=== PATIENT | male | born 1975 | race Caucasian/White ===

== ENCOUNTER 2019-05-06 07:56 | Outpatient (CLI) | payer BC, SELFPAY ==
[2019-05-06 08:19] LABS: Hematocrit 47.4 % (42.0-52.0); Hemoglobin 16.1 g/dL (14.0-18.0); Mean Corpuscular Hemoglobin 30.8 pg (26-34); Mean Corpuscular Volume 90.8 fl (80-100); Mean Platelet Volume 10.2 fl (7.4-10.4); Platelet Count Result 237 k/mm3 (150-375); Red Blood Count 5.22 M/mm3 (4.6-6.20); Red Cell Distribution Width 12.9 % (11.5-14.5); White Blood Count 8.4 K/mm3 (4.5-10.0)
[2019-05-06 08:30] LABS: Alanine Aminotransferase 29 U/L (4-50); Albumin Level 4.4 g/dL (3.5-5.1); Alkaline Phosphatase 87 U/L (38-126); Aspartate Amino Transferase 24 U/L (17-59); Bilirubin,Total 0.3 mg/dL (0.2-1.3); Blood Urea Nitrogen 16 mg/dL (9-20); Calcium 9.3 mg/dL (8.4-10.2); Carbon Dioxide 25 mmol/L (22-30); Chloride 103 mmol/L (98-107); Cholesterol 162 mg/dL (0-200); Estimated Glomerular Filt Rate > 60; Glucose 118 mg/dL (75-110); HDL Direct 37 mg/dL; Potassium 4.2 mmol/L (3.4-5.0); Sodium 140 mmol/L (137-145); Triglycerides 80 mg/dL (<150)
[2019-05-06 08:41] LABS: LDL Cholesterol Direct 107 mg/dL
== END 2019-05-06 07:57 | disposition home or self-care (01) ==
PROVIDERS: PCP Internal Medicine; Visit Provider Nurse Practitioner
DX: Z13.228 Encounter for screening for other metabolic disorders (principal); Z13.220 Encounter for screening for lipoid disorders
CPT/HCPCS: 36415; 80053; 80061; 85027

== ENCOUNTER 2019-05-26 08:41 | Outpatient (CLI) | payer BC, SELFPAY ==
[2019-05-26 09:37] LABS: Hemoglobin A1C 5.6 % (<5.7)
== END 2019-05-26 08:42 | disposition home or self-care (01) ==
PROVIDERS: PCP Internal Medicine; Visit Provider Nurse Practitioner
DX: R73.9 Hyperglycemia, unspecified (principal)
CPT/HCPCS: 36415; 83036

== ENCOUNTER 2020-02-25 15:22 | Emergency (ER) | payer BC, SELFPAY ==
--- NOTE | ~2020-02-25 | CT_ITS ---
EXAMINATION: CT abdomen pelvis wo con DATE: 02/25/2020 16:21 INDICATION: Right flank pain. Kidney stone. TECHNIQUE: Computed tomography (CT) of the abdomen and pelvis was performed without intravenous contr ast. Automated exposure control and iterative reconstruction technique were employed. The dose-length product was 892.05 mGy-cm. COMPARISON: CT abdomen and pelvis 11/25/2015 FINDINGS: The visualized portions of the lung bases are clear without pneumonia or pleural effusion. The heart size is normal. No pericardial effusion. The liver, spleen, pancreas, and adrenal glands ar e normal. There are changes of cholecystectomy. There is asymmetric edema around right kidney. There is mild right hydronephrosis. There is a 6 mm stone in proximal right ureter. There is a 4 mm stone i n left kidney. There are no dilated loops of bowel. The appendix is normal. There are no pathological ly enlarged lymph nodes. There is no free intraperitoneal fluid. There is mild thoracolumbar spondylo sis. There is mild chronic anterior wedging of multiple vertebral bodies. IMPRESSION: 1. 6 mm stone in proximal right ureter with mild right hydronephrosis. 2. 4 mm nonobstructing left kidney stone. Reviewed, dictated and finalized at location A. UATE ASSISTANT
--- NOTE | ~2020-02-25 | XR_ITS ---
EXAMINATION: XR abdomen/kub 1V DATE: 02/25/2020 17:28 INDICATION: Flank pain. Kidney stone. TECHNIQUE: A supine view of the abdomen on 2 radiographs was obtained. COMPARISON: CT abdomen and pelvis 02/25/2020 FINDINGS: There is a 6 mm stone in proximal right ureter at the level of L4. There are no dilated loo ps of bowel. Surgical clips in the right upper quadrant are likely from cholecystectomy. IMPRESSION: 1. 6 mm stone in proximal right ureter. Reviewed, dictated and finalized at location A. TER
[2020-02-25 15:24] VITALS: BP 146/89; PULSE 80; RESP 20; TEMP 36.1; O2SAT 99
[2020-02-25 16:01] LABS: Basophils Absolute Auto 0.1 K/mm3 (0.0-0.1); Basophils Percent Auto 0.5 % (0.2-1.2); Eosinophils Absolute Auto 0.2 K/mm3 (0-0.3); Eosinophils Percent Auto 1.2 % (0-4.4); Hematocrit 46.8 % (42.0-52.0); Hemoglobin 16.6 g/dL (14.0-18.0); Immature Granulocyte Absolute 0.05 K/mm3 (0.00-0.031); Immature Granulocyte Percent A 0.3 % (0-0.5); Lymphocytes Absolute Auto 2.19 K/mm3 (0.9-3.2); Lymphocytes Percent Auto 14.9 % (18.3-44.2); Mean Corpuscular HGB Conc 35.5 g/dl (32-36); Mean Corpuscular Hemoglobin 31.1 pg (26-34); Mean Corpuscular Volume 87.6 fl (80-100); Mean Platelet Volume 10.2 fl (7.4-10.4); Monocytes Absolute Auto 1.2 K/mm3 (0.1-0.6); Monocytes Percent Auto 7.9 % (2.6-8.5); Neutrophils Percent Auto 75.2 % (45.5-73.1); Platelet Count Result 226 k/mm3 (150-375); Red Blood Count 5.34 M/mm3 (4.6-6.20); Red Cell Distribution Width 12.3 % (11.5-14.5); White Blood Count 14.7 K/mm3 (4.5-10.0)
[2020-02-25 16:05] LABS: Add Urine Microscopic? YES; Appearance Urine Clear (Clear); Bilirubin Urine Negative (Negative); Blood Urine 2+ (Negative); Color Urine Yellow (Yellow); Glucose Urine UA Negative (Negative); Ketones Urine 1+ mg/dL (Negative); Leukocyte Esterase Ur Negative LEU/UL (Negative); Mucus Urine Rare /lpf; Nitrate Urine Negative (Negative); Protein Urine 1+ mg/dL (Negative); RBC Urine 21-50 /hpf (0-2); Squamous Epithelial Cell Urine Occasional /hpf (Few); Urobilinogen Urine Negative mg/dL (<2.0); WBC Urine 0-3 /hpf
[2020-02-25 16:12] LABS: Anion Gap 8 mmol/L (8-16); Blood Urea Nitrogen 15 mg/dL (9-20); Calcium 9.4 mg/dL (8.4-10.2); Carbon Dioxide 28 mmol/L (22-30); Chloride 101 mmol/L (98-107); Estimated CRCL calculation 107 ml/min; Estimated Glomerular Filt Rate > 60; Glucose 123 mg/dL (75-110); Potassium 3.7 mmol/L (3.4-5.0); Sodium 137 mmol/L (137-145)
--- NOTE | 2020-02-25 16:38 | ED.BACK ---
HPI - Back Pain/Injury General Chief Complaint: Back Pain/Injury Stated Complaint: right flank pain Time Seen by Provider: 02/25/20 15:58 Source: patient Mode of arrival: ambulatory Limitations: no limitations History of Present Illness HPI Narrative: This is a 44-year-old male that presents to the emergency department for right-sided flank pain since this morning. Reports the pain has been constant and sharp in nature. Reports history of kidney stones. Denies fever, nausea, vomiting, dysuria, hematuria. Related Data Allergies Allergy/AdvReac Type Severity Reaction Status Date / Time No Known Allergies Allergy Unknown Unverified 02/25/20 15:26 Review of Systems Review of Systems: Narrative: CONSTITUTIONAL: Denies fever GASTROINTESTINAL: Reports flank pain. Denies abdominal pain, nausea, vomiting GENITOURINARY: Denies dysuria or hematuria. All systems reviewed & are unremarkable except as noted in HPI and below PMFSH Past Medical History Medical History Cellulitis of lower leg Left Cholecystectomy planned 2017 Mild acid reflux Recurrent tinea pedis Smoker Family History Family History (Updated 08/17/18 @ 10:26 by DOCTOR UNKNOWN) Father Family history of thyroid disease Diabetes mellitus Hypertension Family history of hypothyroidism Mother Hypertension Other Cerebrovascular accident Family history of arthritis Family history of kidney disease Social History Social History (Updated 05/11/19 @ 15:37 by Jessi Mayorga, [facility]) Smoking packs per day: 1 Smoking cigarettes per day: 20.0 Smoking status: Heavy tobacco smoker Tobacco type: cigarettes Alcohol intake: current Gender identity (if verbalized by the patient): Male Exam Narrative: Exam Narrative: GENERAL: Well-appearing, well-nourished, and in no acute distress. HEAD: Normocephalic, atraumatic. EYES: EOMI. CHEST: Clear to auscultation. No respiratory distress. No wheezes rales or rhonchi HEART: Regular rate and rhythm. No murmur heard. Normal peripheral pulses. ABDOMEN: Soft, nontender, nondistended, normal active bowel sounds. No CVA tenderness EXTREMITIES: Normal range of motion. No edema. SKIN: Warm, dry, no rash. NEURO: No focal deficits. Alert and oriented x3. PSYCH: Normal mood and affect Course Consultations Consultation #1: Spoke with urology about patient and work-up will follow-up in clinic. Date: 02/25/20 Time: 18:43 Vital Signs Vital signs: Vital Signs Temperature 97 F L 02/25/20 15:24 Pulse Rate 80 02/25/20 15:24 Respiratory Rate 20 02/25/20 15:24 Blood Pressure 146/89 H 02/25/20 15:24 Pulse Oximetry 99 02/25/20 15:24 Temperature 97 F L 02/25/20 15:24 Pulse Rate 80 02/25/20 15:24 Respiratory Rate 20 02/25/20 15:24 Blood Pressure 146/89 H 02/25/20 15:24 Pulse Oximetry 99 02/25/20 15:24 MDM - Back Pain/Injury MDM Narrative Medical decision making narrative: Patient presents the emergency department for right flank pain since this morning. He is afebrile and nontoxic-appearing. CBC with leukocytosis to 14.7. Metabolic panel without concerning findings. UA is without evidence of infection. Does show red blood cells. CT scan of the abdomen and pelvis shows a 6 mm stone in the proximal right ureter with mild right hydronephrosis. KUB also positively identifies the stone. Patient's pain controlled with Tylenol and morphine. Spoke with urology about patient and work-up will follow-up in clinic. Patient is stable and felt appropriate for further outpatient evaluation. Was given warnings to return to the ER Lab Data Attestation: I reviewed the patient's lab results. Result diagrams: 02/25/20 15:43 02/25/20 15:43 Labs: Lab Results 02/25/20 02/25/20 02/25/20 Range/Units 15:43 15:43 15:43 WBC 14.7 H (4.5-10.0) K/mm3 RBC 5.34 (4.6-6.20) M/mm3 Hgb 16.6 (14.0-18.0) g/dL Hct 46.8 (42.0-52.0) % MCV 87.6 (8
[2020-02-25] MEDS: SODIUM CHLORIDE 0.9% IV 1,000 ML 999 ML IV CONT (16:49)
[2020-02-25] MEDS: ONDANSETRON INJ 4 MG/2 ML VIAL IV PUSH (16:49)
[2020-02-25] MEDS: MORPHINE SULFATE (*CRX) 4 MG/ML INJ IV PUSH (16:49)
[2020-02-25 18:46] VITALS: BP 133/87; PULSE 88; RESP 16; O2SAT 98
[2020-02-25] MEDS: HYDROcodone/acetaminophen (*CRX) 5-325 MG TABLET 1 TAB PO (18:52)
== END 2020-02-25 18:53 | disposition home or self-care (01) ==
PROVIDERS: Emergency Provider Emergency Medicine; PCP Internal Medicine
DX: N13.2 Hydronephrosis with renal and ureteral calculous obstruction (principal); K21.9 Gastro-esophageal reflux disease without esophagitis; F17.210 Nicotine dependence, cigarettes, uncomplicated
CPT/HCPCS: 36415; 74018; 74176; 80048; 81001; 85025; 87086; 96374; 96375; 99284; A9270; J0131; J2270; J2405; J7030

== ENCOUNTER 2020-02-28 09:53 | Outpatient (CLI) | payer SELFPAY ==
--- NOTE | ~2020-02-28 | XR_ITS ---
XR abdomen/kub 1V 02/28/2020 10:29 Indication: Right ureteral stone Procedure: KUB Comparison: 02/25/2020 Findings: There are cholecystectomy clips. Lung bases unremarkable. Nonobstructive bowel gas pattern. No abnormal calcifications. No acute osseous abnormality. Impression: 1: No acute abdominal abnormality. Reviewed, dictated and finalized at location B. ORATE REAL ESTATE MANAGER Impression: 1: No acute abdominal abnormality.
== END 2020-02-28 09:54 | disposition home or self-care (01) ==
PROVIDERS: PCP Internal Medicine; Visit Provider Urology
DX: N20.1 Calculus of ureter (principal)
CPT/HCPCS: 74018

== ENCOUNTER 2020-07-23 15:39 | Emergency (ER) | payer BC, SELFPAY ==
--- NOTE | ~2020-07-23 | XR_ITS ---
EXAMINATION: XR abdomen/kub 1V EXAM DATE: 07/23/2020 16:55 INDICATION: Left upper quadrant pain. TECHNIQUE: Frontal projection(s) of the abdomen for interpretation. There is no prior study for paul alexander. FINDINGS: There are cholecystectomy clips. There is expected amount of colonic stool and gas. No small bowel dilation, nonobstructive bowel gas pattern. There are no suspicious calcifications iden tified. There is no organomegaly suspected. The bones are unremarkable. IMPRESSION: Unremarkable abdomen x-ray exam. Reviewed, dictated and finalized at location A.
[2020-07-23 15:49] VITALS: BP 124/78; PULSE 73; RESP 16; TEMP 36.9; O2SAT 100
[2020-07-23 15:55] VITALS: BP 124/78; PULSE 73; RESP 16; TEMP 36.9; O2SAT 100
--- NOTE | 2020-07-23 16:29 | ED.GENADULT ---
HPI - General Adult General Chief complaint: Abdominal Pain Stated complaint: Abdominal Pain Time Seen by Provider: 07/23/20 16:29 Source: patient and RN notes reviewed Mode of arrival: ambulatory Limitations: no limitations History of Present Illness HPI narrative: 45 year old male who presents to [facility] care with complaints of abdominal pain to left upper abdomen under ribs since Wednesday evening. Patient states that he has discomfort to area left upper abdomen which is not severe but intermittent with movement and is present with palpation. Patient states that he has history of GERD,and kidney stones which he states that last x-ray didn't show any stones. Patient denies any nausea or vomiting or any episodes of diarrhea. Patient states normal bowel movements which are soft with no blood or evidence of mucous. Patient states that Wednesday he worked on cars at his house rotating tires on one of his vehicle, wondered if he could of pulled a muscle. MD complaint: left upper abdomen Onset (ago): day(s) (2) Location: abdomen Radiation: non-radiation Severity: mild Quality: aching Pain Consistency: intermittent Relieving factors: rest Exacerbating factors: movement Treatments prior to arrival: none Related Data Allergies Allergy/AdvReac Type Severity Reaction Status Date / Time No Known Allergies Allergy Unknown Unverified 02/25/20 15:26 Review of Systems Review of Systems: Narrative: CONSTITUTIONAL: Denies fever, chills, or sweats. EYES: Denies visual changes, redness, or discharge. ENT: Denies rhinorrhea, congestion, sore throat, or otalgia. CARDIOVASCULAR: Denies chest pain,pressure or palpitations, no edema. RESPIRATORY: Denies cough or dyspnea. GASTROINTESTINAL: Intermittent left upper abdominal pain under left ribs,no nausea, vomiting, or diarrhea. GENITOURINARY: Denies dysuria or hematuria. SKIN: Denies rash or itching. MUSCULOSKELETAL: Denies back pain, joint pain, or myalgia. NEUROLOGIC: Denies headache, numbness, or weakness. PSYCHIATRIC: Denies anxiety or depression. All systems reviewed & are unremarkable except as noted in HPI and below PMFSH Past Medical History Medical History Cellulitis of lower leg Left Cholecystectomy planned 2017 Mild acid reflux Recurrent tinea pedis Smoker Surgical History Surgical History (Updated 07/23/20 @ 17:02 by Silvia Maldonado NP) History of cholecystectomy Family History Family History Father Family history of thyroid disease Diabetes mellitus Hypertension Family history of hypothyroidism Mother Hypertension Other Cerebrovascular accident Family history of arthritis Family history of kidney disease Social History Social History Smoking packs per day: 1 Smoking cigarettes per day: 20.0 Smoking status: Heavy tobacco smoker Tobacco type: cigarettes Alcohol intake: current Gender identity (if verbalized by the patient): Male Comments At time of signature, agree with nursing past medical, surgical, social and family history. There is no relevant family history pertinent to the presenting complaint Exam Narrative: Exam Narrative: GENERAL: Well-appearing, well-nourished, and in no acute distress. HEAD: Normocephalic, atraumatic. EYES: PERRLA and EOMI. ENT: Nares clear, no rhinorrhea or epistaxis. Mucous membranes moist.TM's normal with good light reflex throat pink with no lesions or eudates NECK: Supple. no lymphadenopathy CHEST: Clear to auscultation. No respiratory distress.SAO2 100% on room air HEART: Regular rate and rhythm. No murmur heard. Normal peripheral pulses. ABDOMEN: Soft,mild tenderness to left upper abdomen under rib area on palpation, nondistended, normal active bowel sounds. EXTREMITIES: Normal range of motion. No edema. SKIN: Warm, dry, no rash. NEURO: No focal deficits. Alert and oriented x3. Course Vital
== END 2020-07-23 17:22 | disposition home or self-care (01) ==
PROVIDERS: Emergency Provider Registered Nurse; PCP Internal Medicine
DX: R10.12 Left upper quadrant pain (principal); K21.9 Gastro-esophageal reflux disease without esophagitis; F17.210 Nicotine dependence, cigarettes, uncomplicated
CPT/HCPCS: 74018; 99213; G0463

== ENCOUNTER 2020-07-25 15:13 | Outpatient (CLI) | payer BC, SELFPAY ==
--- NOTE | ~2020-07-25 | CT_ITS ---
EXAMINATION: CT abdomen pelvis wo con DATE: 07/25/2020 15:31 INDICATION: Hematuria TECHNIQUE: Computed tomography (CT) of the abdomen and pelvis was performed without intravenous contr ast. The dose-length product was 1429.56 mGy-cm. Automated exposure control and iterative reconstruct ion technique were employed. COMPARISON: CT dated 02/25/2020 FINDINGS: Lung bases are unremarkable. Heart size normal. No significant pleural or pericardial effus ion. Status post cholecystectomy. There is a 2 mm nonobstructing right renal stone. No ureteral stones or a significant hydronephrosis. The liver, spleen, pancreas, adrenal glands and left kidney are unremarkable. No significant vascula r abnormality. No lymphadenopathy. Nonobstructive bowel gas pattern. No free air or free fluid. Mild lumbar spondylosis. IMPRESSION: 1. Nonobstructing right renal stone measuring 2 mm. Reviewed, dictated and finalized at location B.
== END 2020-07-25 15:14 | disposition home or self-care (01) ==
PROVIDERS: PCP Internal Medicine; Visit Provider Clinical Nurse Specialist
DX: R31.9 Hematuria, unspecified (principal); N20.0 Calculus of kidney
CPT/HCPCS: 74176

== ENCOUNTER 2020-07-25 15:34 | Outpatient (CLI) | payer BC, SELFPAY ==
[2020-07-25 16:03] LABS: Basophils Absolute Auto 0.1 K/mm3 (0.0-0.1); Basophils Percent Auto 1.1 % (0.2-1.2); Eosinophils Absolute Auto 0.4 K/mm3 (0-0.3); Hematocrit 46.4 % (42.0-52.0); Hemoglobin 15.8 g/dL (14.0-18.0); Immature Granulocyte Absolute 0.03 K/mm3 (0.00-0.031); Immature Granulocyte Percent A 0.3 % (0-0.5); Lymphocytes Absolute Auto 2.55 K/mm3 (0.9-3.2); Lymphocytes Percent Auto 24.5 % (18.3-44.2); Mean Corpuscular HGB Conc 34.1 g/dl (32-36); Mean Corpuscular Hemoglobin 31.4 pg (26-34); Mean Corpuscular Volume 92.2 fl (80-100); Mean Platelet Volume 9.9 fl (7.4-10.4); Monocytes Absolute Auto 0.8 K/mm3 (0.1-0.6); Monocytes Percent Auto 7.6 % (2.6-8.5); Neutrophils Absolute Auto 6.5 K/mm3 (1.3-6.7); Neutrophils Percent Auto 62.5 % (45.5-73.1); Platelet Count Result 222 k/mm3 (150-375); Red Blood Count 5.03 M/mm3 (4.6-6.20); Red Cell Distribution Width 13.2 % (11.5-14.5); White Blood Count 10.4 K/mm3 (4.5-10.0)
[2020-07-25 16:11] LABS: Alanine Aminotransferase 28 U/L (4-50); Albumin Level 4.3 g/dL (3.5-5.1); Alkaline Phosphatase 77 U/L (38-126); Anion Gap 4 mmol/L (8-16); Aspartate Amino Transferase 29 U/L (17-59); Bilirubin,Total 0.5 mg/dL (0.2-1.3); Blood Urea Nitrogen 17 mg/dL (9-20); Calcium 8.9 mg/dL (8.4-10.2); Carbon Dioxide 30 mmol/L (22-30); Chloride 104 mmol/L (98-107); Estimated Glomerular Filt Rate > 60; Glucose 87 mg/dL (75-110); Potassium 3.9 mmol/L (3.4-5.0); Sodium 138 mmol/L (137-145)
[2020-07-25 16:21] LABS: Add Urine Microscopic? YES; Appearance Urine Clear (Clear); Bilirubin Urine Negative (Negative); Blood Urine 1+ (Negative); Color Urine Yellow (Yellow); Glucose Urine UA Negative (Negative); Ketones Urine Negative (Negative); Leukocyte Esterase Ur Negative LEU/UL (Negative); Mucus Urine Rare /lpf; Nitrate Urine Negative (Negative); Protein Urine 1+ mg/dL (Negative); Specific Grav Ur 1.024 (1.001-1.035); Urobilinogen Urine Negative mg/dL (<2.0); WBC Urine 0-3 /hpf
== END 2020-07-25 15:35 | disposition home or self-care (01) ==
LOC: ANHLAB 15:35
PROVIDERS: PCP Internal Medicine; Visit Provider Clinical Nurse Specialist
DX: R31.9 Hematuria, unspecified (principal)
CPT/HCPCS: 36415; 80053; 81001; 85025

== ENCOUNTER 2020-07-28 11:37 | Emergency (ER) | payer BC, SELFPAY ==
[2020-07-28 11:39] VITALS: BP 139/79; PULSE 74; RESP 18; TEMP 35.9; O2SAT 100
[2020-07-28 12:59] LABS: Add Urine Microscopic? NO; Appearance Urine Clear (Clear); Bilirubin Urine Negative (Negative); Blood Urine Negative (Negative); Color Urine Colorless (Yellow); Glucose Urine UA Negative (Negative); Ketones Urine Negative (Negative); Leukocyte Esterase Ur Negative LEU/UL (Negative); Nitrate Urine Negative (Negative); Protein Urine Negative (Negative); Urobilinogen Urine Negative mg/dL (<2.0)
[2020-07-28 13:23] LABS: Specific Grav Ur 1.004 (1.001-1.035)
--- NOTE | 2020-07-28 13:42 | ED.GENADULT ---
HPI - General Adult General Chief complaint: Abdominal Pain Stated complaint: left flank pain Time Seen by Provider: 07/28/20 12:05 Source: patient Mode of arrival: ambulatory Limitations: no limitations History of Present Illness HPI narrative: 45-year-old here with her left flank pain for past few days it started after he was rotating the tires. Patient states he moves in certain directions he gets pain mostly in the flank area occasionally radiating into the left anterior abdominal wall. He denies any nausea vomiting or blood in the urine. Patient was seen in the ER had a CT scan which showed a 2 mm stone in the right kidney which is nonobstructing. No history of fever or chills. Onset (ago): week(s) (1) Location: back (Left flank) Radiation: abdomen Severity: mild Quality: aching Pain Consistency: intermittent Relieving factors: none Exacerbating factors: movement Associated symptoms: denies other symptoms Related Data Allergies Allergy/AdvReac Type Severity Reaction Status Date / Time No Known Allergies Allergy Unknown Verified 07/28/20 11:59 Review of Systems Eyes: Eyes: Reports no additional eye complaints Cardiovascular: Cardiovascular: Reports no additional cardiovascular complaints Respiratory: Respiratory: Reports no additional respiratory complaints Gastrointestinal: Gastrointestinal: Reports no additional gastrointestinal complaints Musculoskeletal: Musculoskeletal: Reports as per HPI Neurologic: Reports system reviewed and no additional complaints, except as documented Psychiatric: Psychiatric: Reports no additional psychiatric complaints PMFSH Past Medical History Medical History Cellulitis of lower leg Left Cholecystectomy planned 2018 Mild acid reflux Recurrent tinea pedis Smoker Surgical History Surgical History History of cholecystectomy Family History Family History Father Family history of thyroid disease Diabetes mellitus Hypertension Family history of hypothyroidism Mother Hypertension Other Cerebrovascular accident Family history of arthritis Family history of kidney disease Social History Social History Smoking packs per day: 1 Smoking cigarettes per day: 20.0 Smoking status: Heavy tobacco smoker Tobacco type: cigarettes Alcohol intake: current Gender identity (if verbalized by the patient): Male Exam Narrative: Exam Narrative: GENERAL: Well-appearing, well-nourished, and in no acute distress. HEAD: Normocephalic, atraumatic. EYES: PERRLA and EOMI. NECK: Supple. CHEST: Clear to auscultation. No respiratory distress. HEART: Regular rate and rhythm. No murmur heard. Normal peripheral pulses. ABDOMEN: Soft, nontender, nondistended, normal active bowel sounds. No CVA tenderness EXTREMITIES: Normal range of motion. No edema. Back pain is reproducible on palpation on the paraspinal area between L1 and L3 more so on the left SKIN: Warm, dry, no rash. NEURO: No focal deficits. Alert and oriented x3. PSYCH: Normal mood and affect. Course Course Emergency Course: Inform patient about his urine analysis and I also reviewed his lab and CT findings done 2 days ago at this time his pain is mostly musculoskeletal advised him to take pain medication as prescribed and continue muscle relaxers as prescribed and stop methylprednisolone. Vital Signs Vital signs: Vital Signs Temperature 35.9 C L 07/28/20 11:39 Pulse Rate 74 07/28/20 11:39 Respiratory Rate 18 07/28/20 11:39 Blood Pressure 139/79 07/28/20 11:39 Pulse Oximetry 100 07/28/20 11:39 Temperature 35.9 C L 07/28/20 11:39 Pulse Rate 74 07/28/20 11:39 Respiratory Rate 18 07/28/20 11:39 Blood Pressure 139/79 07/28/20 11:39 Pulse Oximetry 100 07/28/20 11:39 Medical Decision Making Vital Signs Vital
[2020-07-28 13:58] VITALS: BP 128/88; PULSE 67; O2SAT 100
== END 2020-07-28 13:59 | disposition home or self-care (01) ==
PROVIDERS: Emergency Provider Family Medicine; PCP Internal Medicine
DX: M54.9 Dorsalgia, unspecified (principal); F17.210 Nicotine dependence, cigarettes, uncomplicated; K21.9 Gastro-esophageal reflux disease without esophagitis
CPT/HCPCS: 81003; 99283

== ENCOUNTER 2020-11-21 14:39 | Outpatient (CLI) | payer BC, SELFPAY ==
--- NOTE | ~2020-11-21 | MR_ITS ---
EXAMINATION: MR brain/brain stem wo/w con DATE: 11/21/2020 15:55 INDICATION: Headache, unspecified. TECHNIQUE: Magnetic resonance imaging (MRI) of the brain and brainstem was performed without and with 20 mL MultiHance intravenous contrast. Sequences included sagittal and axial T1-weighted FSE, axial diffusion-weighted FS EPI, axial T2*-weighted GRE, axial T2-weighted FLAIR Propeller, and axial T2-we ighted Propeller. Postcontrast sequences included axial and coronal T1-weighted FSE. Apparent diffusi on coefficient (ADC) maps were created. COMPARISON: None. FINDINGS: There is no intracranial hemorrhage, acute infarction, or abnormal intracranial mass lesion . The ventricles are normal in size. The paranasal sinuses are clear. The orbits are normal. There ar e trace bilateral mastoid effusions. IMPRESSION: 1. Normal brain. Reviewed, dictated and finalized at location A. IMPRESSION: 1. Normal brain.
[2020-11-21 15:22] LABS: Estimated Glomerular Filt Rate > 60
== END 2020-11-21 14:40 | disposition home or self-care (01) ==
PROVIDERS: PCP Internal Medicine; Visit Provider Nurse Practitioner
DX: R51.9 Headache, unspecified (principal)
CPT/HCPCS: 70553; A9577

== ENCOUNTER 2021-02-21 07:20 | Outpatient (CLI) | payer BC, SELFPAY ==
[2021-02-21 07:39] LABS: Basophils Absolute Auto 0.1 K/mm3 (0.0-0.1); Basophils Percent Auto 1.1 % (0.2-1.2); Eosinophils Absolute Auto 0.4 K/mm3 (0-0.3); Eosinophils Percent Auto 4.2 % (0-4.4); Hematocrit 48.4 % (42.0-52.0); Hemoglobin 16.1 g/dL (14.0-18.0); Immature Granulocyte Absolute 0.04 K/mm3 (0.00-0.031); Immature Granulocyte Percent A 0.5 % (0-0.5); Lymphocytes Absolute Auto 2.59 K/mm3 (0.9-3.2); Lymphocytes Percent Auto 29.5 % (18.3-44.2); Mean Corpuscular HGB Conc 33.3 g/dl (32-36); Mean Corpuscular Hemoglobin 31.3 pg (26-34); Mean Corpuscular Volume 94.2 fl (80-100); Mean Platelet Volume 10.1 fl (7.4-10.4); Monocytes Absolute Auto 0.8 K/mm3 (0.1-0.6); Neutrophils Absolute Auto 4.9 K/mm3 (1.3-6.7); Neutrophils Percent Auto 55.7 % (45.5-73.1); Platelet Count Result 215 k/mm3 (150-375); Red Blood Count 5.14 M/mm3 (4.6-6.20); Red Cell Distribution Width 13.1 % (11.5-14.5); White Blood Count 8.8 K/mm3 (4.5-10.0)
[2021-02-21 07:50] LABS: Alanine Aminotransferase 23 U/L (4-50); Albumin Level 4.4 g/dL (3.5-5.1); Alkaline Phosphatase 69 U/L (38-126); Anion Gap 8 mmol/L (8-16); Aspartate Amino Transferase 30 U/L (17-59); Bilirubin,Total 0.8 mg/dL (0.2-1.3); Blood Urea Nitrogen 16 mg/dL (9-20); Calcium 8.6 mg/dL (8.4-10.2); Carbon Dioxide 27 mmol/L (22-30); Chloride 103 mmol/L (98-107); Cholesterol 168 mg/dL (0-200); Estimated Glomerular Filt Rate > 60; Glucose 124 mg/dL (65-110); HDL Direct 38 mg/dL; Potassium 4.6 mmol/L (3.4-5.0); Sodium 138 mmol/L (137-145); Triglycerides 101 mg/dL (<150)
[2021-02-21 08:00] LABS: LDL Cholesterol Direct 114 mg/dL
== END 2021-02-21 07:21 | disposition home or self-care (01) ==
PROVIDERS: PCP Internal Medicine; Visit Provider Clinical Nurse Specialist
DX: Z13.228 Encounter for screening for other metabolic disorders (principal); Z13.220 Encounter for screening for lipoid disorders
CPT/HCPCS: 36415; 80053; 80061; 85025

== ENCOUNTER 2021-03-01 07:03 | Outpatient (CLI) | payer BC, SELFPAY ==
[2021-03-01 08:51] LABS: Hemoglobin A1C 5.3 % (<5.7)
== END 2021-03-01 07:04 | disposition home or self-care (01) ==
LOC: ANHLAB 07:06
PROVIDERS: PCP Internal Medicine; Visit Provider Nurse Practitioner
DX: R73.9 Hyperglycemia, unspecified (principal)
CPT/HCPCS: 36415; 83036

== ENCOUNTER 2021-04-16 09:25 | Emergency (ER) | payer BC, SELFPAY ==
[2021-04-16 09:34] VITALS: BP 131/75; PULSE 92; RESP 16; TEMP 38; O2SAT 99
--- NOTE | 2021-04-16 09:58 | ED.SKABFB ---
HPI - Skin/Abscess/Foreign Bdy General Chief complaint: Skin/Abscess/Foreign Body Stated complaint: rash left leg Time Seen by Provider: 04/16/21 09:58 Source: patient Mode of arrival: ambulatory Limitations: no limitations History of Present Illness HPI narrative: Onel Conway is a 45-year-old with a PMH of GERD comes to [facility] with fever and rash on left lower leg-it is warm to touch and mildly edematous Related Data Allergies Allergy/AdvReac Type Severity Reaction Status Date / Time No Known Allergies Allergy Unknown Verified 04/16/21 09:30 Review of Systems Review of Systems: CONSTITUTIONAL: Denies fever, chills, sweats. EYES: Denies visual changes, redness, discharge. ENT: Denies rhinorrhea, congestion, sore throat, otalgia. CARDIOVASCULAR: Denies chest pain, palpitations, edema. RESPIRATORY: Denies dyspnea, wheezing, cough GASTROINTESTINAL: Denies abdominal pain, nausea, vomiting, diarrhea. GENITOURINARY: Denies dysuria, hematuria, abnormal discharge SKIN: Left lower leg lateral redness and swelling NEUROLOGIC: Denies numbness, or focal weakness. PSYCHIATRIC: Denies anxiety or depression. PMFSH Past Medical History Medical History Cellulitis of lower leg Left Cholecystectomy planned 2018 Mild acid reflux Recurrent tinea pedis Smoker Surgical History Surgical History History of cholecystectomy Family History Family History Father Family history of thyroid disease Diabetes mellitus Hypertension Family history of hypothyroidism Mother Hypertension Other Cerebrovascular accident Family history of arthritis Family history of kidney disease Social History Social History Smoking packs per day: 1 Smoking cigarettes per day: 20.0 Smoking status: Current every day smoker Tobacco type: cigarettes Alcohol intake: current Gender identity (if verbalized by the patient): Male Comments At time of signature, I agree with nursing past medical, surgical, social and family history. There is no relevant family history pertinent to the presenting complaint. Exam Narrative: GENERAL: This is a well-nourished, well-developed patient, in mild distress. He is febrile HEAD: normocephalic, atraumatic. EYES:Sclera clear/white. Vision is grossly intact. EARS: External ears normal, . Hearing grossly intact. NOSE: External nose normal without nasal discharge, nares without redness, no rhinorrhea. THROAT: Mucous membranes moist, NECK: Neck supple, non-tender CARDIOVASCULAR: Regular rate and rhythm without murmurs, gallops, or rubs. RESPIRATORY: Clear to auscultation. Breath sounds equal bilaterally. No wheezes, rales, or rhonchi. GASTROINTESTINAL: Abdomen soft, non-tender, SKIN: warm, intact with redness and mild edema on the lateral left leg with warmth, tenderness NEURO: awake, alert, and oriented to person, place and time. There were no obvious focal neurologic abnormalities. Steady gait EXTREMITIES: Normal range of motion. BACK: Nontender without deformity Course Course Emergency Course: Patient has left lower leg rash-sent here by PCP for treatment Started on Keflex and Bactrim given directions on care and to take Tylenol or ibuprofen for fever, should keep leg elevated Level of Care: Express Care Visit Vital Signs Vital signs: Vital Signs Temperature 100.4 F H 04/16/21 09:34 Pulse Rate 92 04/16/21 09:34 Respiratory Rate 16 04/16/21 09:34 Blood Pressure 131/75 04/16/21 09:34 Pulse Oximetry 99 04/16/21 09:34 Temperature 100.4 F H 04/16/21 09:34 Pulse Rate 92 04/16/21 09:34 Respiratory Rate 16 04/16/21 09:34 Blood Pressure 131/75 04/16/21 09:34 Pulse Oximetry 99 04/16/21 09:34 MDM - Skin/Abscess/Foreign Bdy Differential Diagnosis Differential diagnosis: Likely abscess of s
== END 2021-04-16 10:18 | disposition home or self-care (01) ==
PROVIDERS: Emergency Provider Nurse Practitioner; PCP Internal Medicine
DX: L03.116 Cellulitis of left lower limb (principal); F17.210 Nicotine dependence, cigarettes, uncomplicated; K21.9 Gastro-esophageal reflux disease without esophagitis
CPT/HCPCS: 99213; G0463

== ENCOUNTER 2021-06-08 07:55 | Emergency (ER) | payer BC, SELFPAY ==
[2021-06-08] VITALS (7 sets, daily range): BP systolic 119–151; BP diastolic 67–92; PULSE 64–80; RESP 14–21; TEMP 36.6; O2SAT 96–100
--- NOTE | ~2021-06-08 | CT_ITS ---
EXAMINATION: CT brain wo con DATE: 06/08/2021 09:32 INDICATION: Left-sided numbness. Headache. TECHNIQUE: Computed tomography (CT) of the head was performed without intravenous contrast. The mA wa s adjusted according to patient size. Iterative reconstruction technique was employed. The dose-lengt h product was 681.00 mGy-cm. COMPARISON: Brain MRI 11/21/2020 FINDINGS: There is no intracranial hemorrhage, acute infarction, or abnormal intracranial mass lesion . The ventricles are normal in size. The paranasal sinuses are clear. The orbits are normal. The mast oid air cells are normal. IMPRESSION: 1. Normal brain. Reviewed, dictated and finalized at location A. IMPRESSION: 1. Normal brain.
--- NOTE | 2021-06-08 08:10 | ECG_ITS ---
Measurements Intervals [place] Rate: 71 P: 8 MN: 177 QRS: 25 QRSD: 100 T: 11 QT: 371 QTc: 403 Interpretive Statements SINUS RHYTHM INCOMPLETE RIGHT BUNDLE-BRANCH BLOCK, OTHERWISE NORMAL EKG NO PREVIOUS ECG AVAILABLE FOR COMPARISON Electronically Signed On 06-08-2021 16:48:18 CDT by Gena Strickland M.D.
--- NOTE | 2021-06-08 08:11 | ED.NEUROSD ---
HPI - Neuro Symptoms/Deficit General Chief Complaint: Neuro Symptoms/Deficit Stated Complaint: L foot numbess Time Seen by Provider: 06/08/21 08:10 Source: patient and family Limitations: no limitations History of Present Illness HPI Narrative: The patient is a 45-year-old male with a history of left lower extremity cellulitis, hypertension, presenting to the emergency department for evaluation of headache pain, left foot numbness patient reports that he has had a headache pain, left foot numbness over the past 24 hours. Patient reports headache is very mild in nature. Patient reports at its worst it is typically 2/10 in severity. Patient was seen at his primary care physician's office on May 29, a MRI reviewed from when he was having pain similar to current symptoms, and it was noted to be normal. No additional imaging was ordered given reassuring clinical exam patient denies any significant neck pain. Denies vision changes, facial droop, dysarthria, difficulty with swallowing. He denies any facial pain, eye tearing. No thunderclap sensation to the headache. Patient denies any difficulty with ambulation. He states that his left foot feels numb. He reports he is able to ambulate normally, no difficulty with moving it and he can feel sensation on the left foot. Patient denies any recent fall or injury. He denies any back pain. No saddle anesthesia. No difficulty with bowel or bladder function. No rash, swelling. No bruising. No recent fall or injury. Patient denies any foot pain or blister. Patient states he decided come to the emergency department because he just does not feel right. He denies fever, chills, vision changes, nausea, vomiting, chest pain, back pain, flank pain, shortness of breath, pleuritic pain. Related Data Allergies Allergy/AdvReac Type Severity Reaction Status Date / Time No Known Allergies Allergy Unknown Verified 06/08/21 08:08 Review of Systems Review of Systems: CONSTITUTIONAL: Denies fever, chills, or sweats. EYES: Denies visual changes, redness, or discharge. ENT: Denies rhinorrhea, congestion, sore throat, or otalgia. CARDIOVASCULAR: Denies chest pain, palpitations, or edema. RESPIRATORY: Denies cough or dyspnea. GASTROINTESTINAL: Denies abdominal pain, nausea, vomiting, or diarrhea. GENITOURINARY: Denies dysuria or hematuria. SKIN: Denies rash or itching. MUSCULOSKELETAL: Denies back pain, joint pain, or myalgia. NEUROLOGIC: Reports mild left posterior/parietal headache, denies neck pain, reports left foot numbness without weakness PSYCHIATRIC: Denies anxiety or depression. [facility] Past Medical History Medical History Cellulitis of lower leg Left Cholecystectomy planned 2017 Mild acid reflux Recurrent tinea pedis Smoker Surgical History Surgical History History of cholecystectomy Family History Family History Father Family history of thyroid disease Diabetes mellitus Hypertension Family history of hypothyroidism Mother Hypertension Other Cerebrovascular accident Family history of arthritis Family history of kidney disease Social History Social History Social History: tea and half and half coffee Smoking packs per day: 1 Smoking cigarettes per day: 20.0 Smoking status: Current every day smoker Tobacco type: cigarettes Alcohol intake: never Gender identity (if verbalized by the patient): Male Exam Narrative: GENERAL: Awake, alert, conversant HEAD: Normocephalic, atraumatic. EYES: 2+ PERRLA and EOMI. No gaze palsy. ENT: Nares clear, no rhinorrhea or epistaxis. Mucous membranes moist. NECK: Supple. No pain with flexion or extension. CHEST: No respiratory distress, breathing even and non labored HEART: Regular rate, sinus rhythm ABDOMEN:Non distended, non tender EXTREMITIES: Normal
[2021-06-08] MEDS: SODIUM CHLORIDE 0.9% IV 1,000 ML 999 ML IV CONT (09:03)
[2021-06-08 09:06] LABS: Basophils Absolute Auto 0.1 K/mm3 (0.0-0.1); Basophils Percent Auto 1.2 % (0.2-1.2); Eosinophils Absolute Auto 0.3 K/mm3 (0-0.3); Eosinophils Percent Auto 3.2 % (0-4.4); Hematocrit 46.8 % (42.0-52.0); Hemoglobin 16.2 g/dL (14.0-18.0); Immature Granulocyte Absolute 0.02 K/mm3 (0.00-0.031); Immature Granulocyte Percent A 0.2 % (0-0.5); Lymphocytes Absolute Auto 1.45 K/mm3 (0.9-3.2); Mean Corpuscular HGB Conc 34.6 g/dl (32-36); Mean Corpuscular Hemoglobin 31.8 pg (26-34); Mean Corpuscular Volume 91.8 fl (80-100); Mean Platelet Volume 9.8 fl (7.4-10.4); Monocytes Absolute Auto 0.6 K/mm3 (0.1-0.6); Monocytes Percent Auto 7.2 % (2.6-8.5); Neutrophils Absolute Auto 5.7 K/mm3 (1.3-6.7); Neutrophils Percent Auto 70.2 % (45.5-73.1); Platelet Count Result 215 k/mm3 (150-375); Red Cell Distribution Width 13.2 % (11.5-14.5); White Blood Count 8.1 K/mm3 (4.5-10.0)
[2021-06-08 10:06] LABS: Add Urine Microscopic? NO; Appearance Urine Clear (Clear); Bilirubin Urine Negative (Negative); Blood Urine Negative (Negative); Color Urine Yellow (Yellow); Glucose Urine UA Negative (Negative); Ketones Urine Negative (Negative); Leukocyte Esterase Ur Negative LEU/UL (Negative); Nitrate Urine Negative (Negative); Protein Urine Negative (Negative); Specific Grav Ur 1.011 (1.001-1.035); Urobilinogen Urine Negative mg/dL (<2.0)
[2021-06-08 10:14] LABS: Anion Gap 4 mmol/L (8-16); Blood Urea Nitrogen 13 mg/dL (9-20); CRP < 0.5 mg/dL (<1.0); Calcium 8.8 mg/dL (8.4-10.2); Carbon Dioxide 25 mmol/L (22-30); Chloride 107 mmol/L (98-107); Creatine Kinase 59 U/L (55-170); Estimated CRCL calculation 180 ml/min; Estimated Glomerular Filt Rate > 60; Glucose 123 mg/dL (65-110); Potassium 4.4 mmol/L (3.4-5.0); Sodium 136 mmol/L (137-145)
[2021-06-08 10:23] LABS: Troponin I < 0.012 ng/mL (0.000-0.034)
[2021-06-08 11:47] LABS: Troponin I < 0.012 ng/mL (0.000-0.034)
== END 2021-06-08 11:54 | disposition home or self-care (01) ==
PROVIDERS: Emergency Provider Emergency Medicine; PCP Internal Medicine
DX: R53.81 Other malaise (principal); G62.9 Polyneuropathy, unspecified; I10 Essential (primary) hypertension; K21.9 Gastro-esophageal reflux disease without esophagitis; F17.210 Nicotine dependence, cigarettes, uncomplicated; I45.10 Unspecified right bundle-branch block
CPT/HCPCS: 36415; 70450; 80048; 81003; 82550; 84443; 84484; 85025; 86140; 93005; 96360; 99284; J7030

== ENCOUNTER 2021-07-15 05:48 | Emergency (ER) | payer BC, SELFPAY ==
--- NOTE | ~2021-07-15 | CT_ITS ---
EXAMINATION: CT abdomen pelvis wo con EXAM DATE: 07/15/2021 06:29 INDICATION: Right flank pain, hematuria, HX Of Stones. TECHNIQUE: Spiral CT of the abdomen and pelvis was performed without contrast. Axial, coronal and sag ittal images were reviewed. The dose-length product (DLP) for this examination was 915.49 mGy-cm. T he exposure was tailored according to patient size (auto mA exposure control), and iterative reconstr uction (ASIR) was used as additional dose reduction technique. Comparison is made to prior examinatio n from 07/25/2020. FINDINGS: There is mild nonspecific bilateral perinephric fat stranding, not significantly changed. P reviously seen punctate right superior calyceal stones not present on this exam. There is no nephroli thiasis or hydronephrosis. The prostate is unremarkable. The bladder is unremarkable. The liver, spleen, adrenal glands and pancreas are unremarkable. Gallbladder not identified, patient likely has had cholecystectomy. There is no retroperitoneal or pelvic lymphadenopathy. The appendix is normal. The stomach and small bowel are unremarkable. There is expected amount of c olonic stool. No free intraperitoneal gas. The heart is normal in size. There are no pericardial or pleural effusions. The lung bases are unremarkable. There are no osteoblastic or osteolytic les ions identified. IMPRESSION: 1. No nephrolithiasis, hydronephrosis or acute intra-abdominal findings. 2. Mild nonspecific bilateral perinephric fat stranding Reviewed, dictated and finalized at location A.
[2021-07-15 05:53] VITALS: BP 145/86; PULSE 71; RESP 18; TEMP 36.2; O2SAT 100
--- NOTE | 2021-07-15 06:05 | ED.BACK ---
HPI - Back Pain/Injury General Chief Complaint: Back Pain/Injury Stated Complaint: right lower back and side pain Time Seen by Provider: 07/15/21 05:50 Source: patient Mode of arrival: ambulatory Limitations: no limitations History of Present Illness HPI Narrative: 46-year-old male with history of kidney stones presenting to the emergency department for evaluation of right lower back pain that radiates around to his right side. Patient states he was bumped around a lot and a truck at work yesterday and suspects that he may have some lower back pain secondary to that. He states due to the lower back pain he did take a Flexeril prior to going to bed and that the Flexeril did not significantly affect his pain although he was able to sleep. The patient woke up this morning he was having worsening right lower back and right side pain. Patient states that while the pain was too much for him to go to work it did not feel as intense as a typical kidney stone. Patient describes the pain as intermittent and sharp but he also states the pain along the side of his abdomen does not feel deep but that it feels it is associated with the skin. Patient has no prior history of shingles and patient has no current rash. Patient denies any associated chest pain or shortness of breath. Patient denies any associated nausea or vomiting. Patient does report prior history of ureteral calculi but states he has always passed the stones spontaneously. Last stone was a few years ago and patient does not remember who he saw from urology. Related Data Allergies Allergy/AdvReac Type Severity Reaction Status Date / Time No Known Allergies Allergy Unknown Verified 07/15/21 06:03 Review of Systems Review of Systems: CONSTITUTIONAL: Denies fever, chills, or sweats. EYES: Denies visual changes, redness, or discharge. ENT: Denies rhinorrhea, congestion, sore throat, or otalgia. CARDIOVASCULAR: Denies chest pain, palpitations, or edema. RESPIRATORY: Denies cough or dyspnea. GASTROINTESTINAL: Right flank pain GENITOURINARY: Denies dysuria or hematuria. SKIN: Denies rash or itching. MUSCULOSKELETAL: Lower back pain. NEUROLOGIC: Denies headache, numbness, or weakness. All systems reviewed & are unremarkable except as noted in HPI and below PMFSH Past Medical History Medical History Cellulitis of lower leg Left Cholecystectomy planned 2017 Mild acid reflux Recurrent tinea pedis Smoker Surgical History Surgical History History of cholecystectomy Family History Family History Father Family history of thyroid disease Diabetes mellitus Hypertension Family history of hypothyroidism Mother Hypertension Other Cerebrovascular accident Family history of arthritis Family history of kidney disease Social History Social History Social History: tea and half and half coffee Smoking packs per day: 1 Smoking cigarettes per day: 20.0 Smoking status: Current every day smoker Tobacco type: cigarettes Alcohol intake: never Gender identity (if verbalized by the patient): Male Exam Narrative: APPEARANCE: Well appearing, no pain, no distress, well-nourished. HEAD: normocephalic, atraumatic. EYES: PERRLA/EOMI, conjunctivae clear. NOSE: Normal no drainage RESPIRATORY: Airway patent, respirations nonlabored. Clear to auscultation bilaterally, no rales, rhonchi, wheezing. CARDIOVASCULAR: Regular rate and rhythm without murmurs rubs or gallops. ABDOMINAL: Soft, nontender, nondistended, normal bowel sounds. No right CVA tenderness to palpation. No reproducible abdominal tenderness to palpation MUSCULOSKELETAL: Moves all extremities. Strength/ROM intact, No edema, No calf tenderness. NEURO: Alert. Cranial nerves II through XII intact. Grossly intact SKIN: Warm, dry. Normal
[2021-07-15 06:09] LABS: Basophils Absolute Auto 0.1 K/mm3 (0.0-0.1); Eosinophils Absolute Auto 0.4 K/mm3 (0-0.3); Eosinophils Percent Auto 4.7 % (0-4.4); Hematocrit 47.8 % (42.0-52.0); Hemoglobin 16.6 g/dL (14.0-18.0); Immature Granulocyte Absolute 0.02 K/mm3 (0.00-0.031); Immature Granulocyte Percent A 0.2 % (0-0.5); Lymphocytes Percent Auto 29.6 % (18.3-44.2); Mean Corpuscular HGB Conc 34.7 g/dl (32-36); Mean Corpuscular Hemoglobin 31.8 pg (26-34); Mean Corpuscular Volume 91.6 fl (80-100); Mean Platelet Volume 9.9 fl (7.4-10.4); Monocytes Absolute Auto 0.7 K/mm3 (0.1-0.6); Monocytes Percent Auto 8.1 % (2.6-8.5); Neutrophils Percent Auto 56.4 % (45.5-73.1); Platelet Count Result 235 k/mm3 (150-375); Red Blood Count 5.22 M/mm3 (4.6-6.20); White Blood Count 8.8 K/mm3 (4.5-10.0)
[2021-07-15 06:10] LABS: Appearance Urine Clear (Clear); Bilirubin Urine 1+ (Negative); Blood Urine 2+ (Negative); Color Urine Yellow (Yellow); Glucose Urine UA Negative (Negative); Ketones Urine Negative (Negative); Leukocyte Esterase Ur Negative LEU/UL (Negative); Nitrate Urine Negative (Negative); Protein Urine Negative (Negative); Specific Grav Ur >= 1.030 (1.001-1.035); Urobilinogen Urine 0.2 mg/dL (<2.0); pH Urine 5.5 (5.0-9.0)
[2021-07-15 06:14] LABS: Mucus Urine Moderate /lpf
[2021-07-15 06:22] LABS: Alanine Aminotransferase 19 U/L (4-50); Albumin Level 4.2 g/dL (3.5-5.1); Alkaline Phosphatase 79 U/L (38-126); Anion Gap 5 mmol/L (8-16); Aspartate Amino Transferase 23 U/L (17-59); Bilirubin,Total 0.2 mg/dL (0.2-1.3); Blood Urea Nitrogen 14 mg/dL (9-20); Calcium 8.8 mg/dL (8.4-10.2); Carbon Dioxide 28 mmol/L (22-30); Chloride 105 mmol/L (98-107); Estimated CRCL calculation 161 ml/min; Estimated Glomerular Filt Rate > 60; Glucose 137 mg/dL (65-110); Potassium 4.1 mmol/L (3.4-5.0); Sodium 138 mmol/L (137-145)
[2021-07-15 06:23] LABS: Add Urine Microscopic? YES
[2021-07-15] MEDS: KETOROLAC 15 MG/ML VIAL (*BKC) IV PUSH (06:59)
[2021-07-15] MEDS: CYCLOBENZAPRINE HCL 10 MG TABLET PO (06:59)
== END 2021-07-15 07:09 | disposition home or self-care (01) ==
PROVIDERS: Emergency Provider Emergency Medicine; PCP Internal Medicine
DX: M54.50 Low back pain, unspecified (principal); R31.9 Hematuria, unspecified; K21.9 Gastro-esophageal reflux disease without esophagitis; Z87.442 Personal history of urinary calculi; F17.210 Nicotine dependence, cigarettes, uncomplicated
CPT/HCPCS: 36415; 74176; 80053; 81001; 85025; 96374; 99284; A9270; J1885

== ENCOUNTER 2021-09-30 15:58 | Emergency (ER) | payer BC, SELFPAY ==
--- NOTE | ~2021-09-30 | CT_ITS ---
EXAMINATION: CT abdomen pelvis wo con DATE: 09/30/2021 16:39 INDICATION: Right flank and right lower quadrant abdominal pain for 3 to 4 days[address] History of kidney [address] ones. TECHNIQUE: Computed tomography (CT) of the abdomen and pelvis was performed without intravenous contr ast. Automated exposure control and iterative reconstruction technique were employed. Exam dose: 140 9.24 mGy-cm total exam DLP. COMPARISON: July 15, 2021 CT abdomen pelvis FINDINGS: The lung bases are clear. Normal heart size. No pericardial or pleural effusion. Status post cholecystectomy. The liver, spleen, pancreas, adrenal glands are unremarkable. No bile duct or pancreatic duct dilatation. There is a pinpoint nonobstructing mid to lower right renal calculus. There may be a very subtle pinp oint nonobstructing lower pole left renal calculus. No ureteral calculus or hydroureteronephrosis. The urinary bladder is unremarkable. Mild prostate enl argement and prostate calcification. Normal caliber of the abdominal aorta. No intraperitoneal or retroperitoneal or pelvic mass lesion or adenopathy or ascites. No evidence of appendicitis. No bowel obstruction or intraperitoneal free air. Very small fat-contain ing umbilical hernia. Included skeletal structures are unremarkable. IMPRESSION: Subtle slight bilateral nonobstructive nephrolithiasis is suggested; no ureteral calculu s or hydroureteronephrosis No evidence of appendicitis Reviewed, dictated and finalized at Location A. Reviewed, dictated and finalized at location A. IMPRESSION: Subtle slight bilateral nonobstructive nephrolithiasis is suggeste d; no ureteral calculus or hydroureteronephrosis No evidence of appendicitis
[2021-09-30 16:08] VITALS: BP 134/80; PULSE 74; RESP 17; TEMP 36.5; O2SAT 99
[2021-09-30 16:26] LABS: Basophils Absolute Auto 0.1 K/mm3 (0.0-0.1); Basophils Percent Auto 0.8 % (0.2-1.2); Eosinophils Absolute Auto 0.3 K/mm3 (0-0.3); Eosinophils Percent Auto 3.1 % (0-4.4); Hemoglobin 15.5 g/dL (14.0-18.0); Immature Granulocyte Absolute 0.03 K/mm3 (0.00-0.031); Immature Granulocyte Percent A 0.3 % (0-0.5); Lymphocytes Absolute Auto 2.43 K/mm3 (0.9-3.2); Lymphocytes Percent Auto 24.3 % (18.3-44.2); Mean Corpuscular HGB Conc 33.7 g/dl (32-36); Mean Corpuscular Hemoglobin 31.1 pg (26-34); Mean Corpuscular Volume 92.4 fl (80-100); Mean Platelet Volume 9.9 fl (7.4-10.4); Monocytes Absolute Auto 0.7 K/mm3 (0.1-0.6); Monocytes Percent Auto 7.1 % (2.6-8.5); Neutrophils Absolute Auto 6.5 K/mm3 (1.3-6.7); Neutrophils Percent Auto 64.4 % (45.5-73.1); Platelet Count Result 219 k/mm3 (150-375); Red Blood Count 4.98 M/mm3 (4.6-6.20)
--- NOTE | 2021-09-30 16:32 | ED.ABDPAIN ---
HPI - Abdominal Pain General Chief Complaint: Abdominal Pain Stated Complaint: RLQ pain Time Seen by Provider: 09/30/21 16:22 History of Present Illness HPI narrative: 46-year-old male presents here with right lower quadrant pain for the last few days, he states that 3 days ago it was quite severe and associate with nausea, it seems to wrap around to his right lower back, feels different from his usual kidney stone pain, he said that his urine looked dark so he did drink more water and then for last two days was feeling better; however this morning started having pain again, and worsened when he lifted some pipes at work. No fevers or chills. Related Data Allergies Allergy/AdvReac Type Severity Reaction Status Date / Time No Known Allergies Allergy Unknown Verified 07/15/21 06:03 Review of Systems Review of Systems: CONST: No fever. HEENT: No sore throat C/V: No chest pain RESP: No cough GI: Reports abdominal pain, nausea : No dysuria. M/S: No joint pain. SKIN: No rash. NEURO: [No headache or focal numbness or weakness] PSYCH: [No depression] PMFSH Past Medical History Medical History Cellulitis of lower leg Left Cholecystectomy planned 2018 Mild acid reflux Recurrent tinea pedis Smoker Surgical History Surgical History History of cholecystectomy Family History Family History Father Family history of thyroid disease Diabetes mellitus Hypertension Family history of hypothyroidism Mother Hypertension Other Cerebrovascular accident Family history of arthritis Family history of kidney disease Social History Social History Social History: tea and half and half coffee Smoking packs per day: 1 Smoking cigarettes per day: 20.0 Smoking status: Never smoker Tobacco type: cigarettes Alcohol intake: never Gender identity (if verbalized by the patient): Male Exam Narrative: EXAMINATION OF ORGAN SYSTEMS/BODY AREAS: Constitutional: Vital signs per nursing GENERAL:[No acute distress, non-toxic appearing.] HEAD: Normal with no signs of head trauma. EYES: EOMI, conjunctiva normal ENT: Hearing grossly intact LUNGS: Nonlabored breathing. HEART: [Regular rate and rhythm] ABD: [Soft], [nontender to palpation, negative Mcburney's, no signs of hernia] EXT: Normal range of motion SKIN: [No rashes or lesions.] NEURO: [Alert and oriented x 3. No gross focal sensory or strength deficits.] PSYCH: Normal affect Course Vital Signs Vital signs: Vital Signs Temperature 97.7 F 09/30/21 16:08 Pulse Rate 74 09/30/21 16:08 Respiratory Rate 17 09/30/21 16:08 Blood Pressure 134/80 09/30/21 16:08 Pulse Oximetry 99 09/30/21 16:08 Oxygen Delivery Room Air 09/30/21 16:08 Temperature 97.7 F 09/30/21 16:08 Pulse Rate 74 09/30/21 16:08 Respiratory Rate 17 09/30/21 16:08 Blood Pressure 134/80 09/30/21 16:08 Pulse Oximetry 99 09/30/21 16:08 Oxygen Delivery Room Air 09/30/21 16:08 MDM - Abdominal Pain MDM Narrative Medical decision making narrative: 46-year-old male presenting with right lower quadrant pain intermittent over the last few days, vital signs stable, exam shows well-appearing patient with soft, nontender abdomen, my differential includes UTI, appendicitis, kidney stone, musculoskeletal strain, labs show hematuria, CT noncon shows bilateral non-obstructing tiny stones in kidneys, I suspect symptoms most likely from kidney stones that have passed. Patient updated on findings, stable for discharge home at this time with follow-up with his primary care doctor and urologist, return precautions provided. Lab Data Result diagrams: 09/30/21 16:18 09/30/21 16:18 Labs: Lab Results 09/30/21 09/30/21 09/30/21 Range/Units 16:18 16:18 16:25 WBC 10.0 (4.5-10.0) K/m
[2021-09-30 16:35] LABS: Alanine Aminotransferase 19 U/L (6-50); Albumin Level 4.5 g/dL (3.5-5.1); Alkaline Phosphatase 78 U/L (38-126); Anion Gap 8 mmol/L (8-16); Aspartate Amino Transferase 22 U/L (17-59); Bilirubin,Total 0.5 mg/dL (0.2-1.3); Blood Urea Nitrogen 13 mg/dL (9-20); Calcium 8.8 mg/dL (8.4-10.2); Carbon Dioxide 25 mmol/L (22-30); Chloride 106 mmol/L (98-107); Estimated CRCL calculation 156 ml/min; Estimated Glomerular Filt Rate > 60; Glucose 89 mg/dL (65-110); Potassium 3.8 mmol/L (3.4-5.0); Sodium 139 mmol/L (137-145)
[2021-09-30 16:41] LABS: Appearance Urine Clear (Clear); Bilirubin Urine 1+ (Negative); Color Urine Yellow (Yellow); Glucose Urine UA Negative (Negative); Ketones Urine 1+ mg/dL (Negative); Leukocyte Esterase Ur Negative LEU/UL (Negative); Nitrate Urine Negative (Negative); Protein Urine Negative (Negative); Specific Grav Ur 1.025 (1.001-1.035); Urobilinogen Urine 0.2 mg/dL (<2.0)
[2021-09-30 16:49] LABS: Mucus Urine Moderate /lpf; WBC Urine 0-3 /hpf
[2021-09-30 16:51] LABS: Add Urine Microscopic? YES; Blood Urine Trace-Intact (Negative)
== END 2021-09-30 17:20 | disposition home or self-care (01) ==
PROVIDERS: Emergency Medicine; Emergency Provider Emergency Medicine; PCP Internal Medicine
DX: R10.31 Right lower quadrant pain (principal); R31.9 Hematuria, unspecified; K21.9 Gastro-esophageal reflux disease without esophagitis; F17.210 Nicotine dependence, cigarettes, uncomplicated; N20.0 Calculus of kidney
CPT/HCPCS: 36415; 74176; 80053; 81001; 85025; 99284

== ENCOUNTER → 2021-11-12 15:03 | Outpatient (CLI) | payer BC, SELFPAY ==
--- NOTE | ~2021-11-12 | XR_ITS ---
EXAMINATION: [id number] INDICATION: Left rib pain TECHNIQUE: A frontal view of the chest and 3 views of the left ribs were obtained. COMPARISON: None. FINDINGS: The lungs are free of acute opacities. No pleural effusion or pneumothorax. The cardiomedia stinal silhouette is normal. No displaced rib fracture is identified. Surgical clips in the right upp er quadrant are likely from prior cholecystectomy. IMPRESSION: 1. No acute cardiopulmonary abnormality or evidence of displaced rib fracture. Reviewed, dictated and finalized at location A.
== END ==
PROVIDERS: PCP Internal Medicine; Visit Provider Nurse Practitioner
DX: R07.81 Pleurodynia (principal)
CPT/HCPCS: 71101

== ENCOUNTER 2021-11-21 05:42 | Emergency (ER) | payer BC, SELFPAY ==
[2021-11-21] VITALS (8 sets, daily range): BP systolic 116–139; BP diastolic 63–99; PULSE 55–80; RESP 14–22; O2SAT 94–100
--- NOTE | ~2021-11-21 | XR_ITS ---
EXAMINATION: XR chest 2V DATE: 11/21/2021 06:21 INDICATION: Chest pain. TECHNIQUE: Frontal and lateral views of the chest were obtained. COMPARISON: Chest single view 11/25/2015 FINDINGS: The chest demonstrates clear lungs without pneumonia, pleural effusion, or pneumothorax. Th e heart size is normal. There is mild chronic anterior wedging of multiple vertebral bodies. Surgical clips in the right upper quadrant are likely from cholecystectomy. IMPRESSION: 1. No acute cardiopulmonary disease. Reviewed, dictated and finalized at location A.
--- NOTE | 2021-11-21 05:48 | ECG_ITS ---
Measurements Intervals [place] Rate: 67 P: 5 SD: 180 QRS: 27 QRSD: 92 T: 12 QT: 363 QTc: 386 Interpretive Statements SINUS RHYTHM NORMAL ELECTROCARDIOGRAM COMPARED TO ECG 06/08/2021 08:12:05 NO SIGNIFICANT CHANGES Electronically Signed On 11-21-2021 12:47:23 CDT by Wesley Banks M.D.
[2021-11-21] MEDS: ASPIRIN 81 MG CHEWABLE TABLET 324 MG PO (06:02)
[2021-11-21 06:04] LABS: Basophils Absolute Auto 0.1 K/mm3 (0.0-0.1); Basophils Percent Auto 1.1 % (0.2-1.2); Eosinophils Absolute Auto 0.4 K/mm3 (0-0.3); Hematocrit 48.4 % (42.0-52.0); Hemoglobin 16.3 g/dL (14.0-18.0); Immature Granulocyte Absolute 0.02 K/mm3 (0.00-0.031); Immature Granulocyte Percent A 0.2 % (0-0.5); Lymphocytes Absolute Auto 2.97 K/mm3 (0.9-3.2); Lymphocytes Percent Auto 33.1 % (18.3-44.2); Mean Corpuscular HGB Conc 33.7 g/dl (32-36); Mean Corpuscular Hemoglobin 31.3 pg (26-34); Mean Corpuscular Volume 93.1 fl (80-100); Mean Platelet Volume 10.2 fl (7.4-10.4); Monocytes Absolute Auto 0.8 K/mm3 (0.1-0.6); Monocytes Percent Auto 8.8 % (2.6-8.5); Neutrophils Absolute Auto 4.7 K/mm3 (1.3-6.7); Neutrophils Percent Auto 52.8 % (45.5-73.1); Platelet Count Result 228 k/mm3 (150-375)
[2021-11-21 06:14] LABS: INR 0.9; Prothrombin Time 12.2 Seconds (11.1-14.7)
[2021-11-21 06:15] LABS: Partial Thromboplastin Time 31.6 SECONDS (22.3-36.8)
[2021-11-21 06:21] LABS: Alanine Aminotransferase 18 U/L (6-50); Albumin Level 4.6 g/dL (3.5-5.1); Alkaline Phosphatase 74 U/L (38-126); Anion Gap 8 mmol/L (8-16); Aspartate Amino Transferase 34 U/L (17-59); Bilirubin,Total 0.5 mg/dL (0.2-1.3); Blood Urea Nitrogen 16 mg/dL (9-20); Carbon Dioxide 26 mmol/L (22-30); Chloride 104 mmol/L (98-107); Estimated CRCL calculation 155 ml/min; Estimated Glomerular Filt Rate > 60; Glucose 117 mg/dL (65-110); Lipase 67 U/L (23-300); Potassium 4.4 mmol/L (3.4-5.0); Sodium 138 mmol/L (137-145)
[2021-11-21 06:26] LABS: Troponin I < 0.012 ng/mL (0.000-0.034)
--- NOTE | 2021-11-21 08:15 | ED.GENADULT ---
HPI - General Adult General Chief complaint: Chest Pain Stated complaint: Lower Right Side Chest Pain Time Seen by Provider: 11/21/21 06:59 History of Present Illness HPI narrative: Patient is a 46-year-old male who presents ER with concerns of abdominal pain. Reports yesterday morning at 8 AM he was moving a water heater when he felt pain in his right upper quadrant. The pain is now moved into his epigastrium. It is worse with twisting and bending. No chest pain or chest pressure. No burning going up into the chest or throat. He is without nausea or vomiting or dizziness. Not taking pain medication. He does not have a gallbladder. Related Data Allergies Allergy/AdvReac Type Severity Reaction Status Date / Time No Known Allergies Allergy Unknown Verified 10/21/21 10:10 Review of Systems Review of Systems: All systems reviewed & are unremarkable except as noted in HPI and below Constitutional: Constitutional: Denies chills and Denies fever(s) Cardiovascular: Cardiovascular: Denies chest pain, Denies rapid heart rate and Denies radiating jaw, neck or arm pain Respiratory: Respiratory: Denies cough and Denies dyspnea Gastrointestinal: Gastrointestinal: Reports abdominal pain, Reports diarrhea (x2 yesterday), Denies nausea and Denies vomiting Genitourinary: Genitourinary: Denies dysuria and Denies urinary frequency PMFSH Past Medical History Medical History Cellulitis of lower leg Left Cholecystectomy planned 2018 Mild acid reflux Recurrent tinea pedis Smoker Surgical History Surgical History History of cholecystectomy Family History Family History Father Family history of thyroid disease Diabetes mellitus Hypertension Family history of hypothyroidism Mother Hypertension Other Cerebrovascular accident Family history of arthritis Family history of kidney disease Social History Social History Social History: tea and half and half coffee Smoking packs per day: 1 Smoking cigarettes per day: 20.0 Smoking status: Current every day smoker Tobacco type: cigarettes Alcohol intake: never Gender identity (if verbalized by the patient): Male Exam Narrative: GENERAL: Well-appearing, well-nourished, and in no acute distress. HEAD: Normocephalic, atraumatic. EYES: PERRL and EOMI. CHEST: Clear to auscultation. No respiratory distress. HEART: Regular rate and rhythm. Normal peripheral pulses. ABDOMEN: Soft, nontender, nondistended. EXTREMITIES: Normal range of motion. No edema. SKIN: Warm, dry, no rash. NEURO: Alert and oriented x3. PSYCH: Normal mood and affect. Course Course Emergency Course: Symptoms felt to be most likely muscle strain of abdomen from heavy lifting given mechanical reproduction with movement. Recommend anti-inflammatories for home. Toradol given here. Discharge. Vital Signs Vital signs: Vital Signs Pulse Rate 80 11/21/21 05:49 Respiratory Rate 17 11/21/21 05:49 Blood Pressure 131/81 11/21/21 05:49 Pulse Oximetry 100 11/21/21 05:49 Oxygen Delivery Room Air 11/21/21 05:49 Pulse Rate 59 L 11/21/21 08:01 Respiratory Rate 16 11/21/21 08:01 Blood Pressure 116/71 11/21/21 08:01 Pulse Oximetry 98 11/21/21 08:01 Oxygen Delivery Room Air 11/21/21 05:49 Medical Decision Making Vital Signs Vital Signs: Vital Signs Pulse Rate 80 11/21/21 05:49 Respiratory Rate 17 11/21/21 05:49 Blood Pressure 131/81 11/21/21 05:49 Pulse Oximetry 100 11/21/21 05:49 Oxygen Delivery Room Air 11/21/21 05:49 Pulse Rate 59 L 11/21/21 08:01 Respiratory Rate 16 11/21/21 08:01 Blood Pressure 116/71 11/21/21 08:01 Pulse Oximetry 98 11/21/21 08:01 Oxygen Delivery Room Air 11/21/21 05:49 Lab Data Result diagrams: 11/21/21 05:57
[2021-11-21] MEDS: KETOROLAC 15 MG/ML VIAL (*BKC) IV PUSH (08:27)
== END 2021-11-21 08:33 | disposition home or self-care (01) ==
PROVIDERS: Emergency Medicine; Emergency Provider Emergency Medicine; PCP Internal Medicine
DX: S39.011A Strain of muscle, fascia and tendon of abdomen, initial encounter (principal); F17.210 Nicotine dependence, cigarettes, uncomplicated; X50.0XXA Overexertion from strenuous movement or load, initial encounter
CPT/HCPCS: 36415; 71046; 80053; 83690; 84484; 85025; 85610; 85730; 93005; 96372; 99284; A9270; J1885

== ENCOUNTER → 2021-12-20 07:24 | Outpatient (CLI) | payer BC, SELFPAY ==
--- NOTE | ~2021-12-20 | US_ITS ---
US abdomen limited 12/20/2021 07:41 Indication: Left upper quadrant pain Procedure: Limited left upper abdominal ultrasound Comparison: 07/17/2017 Findings: Spleen is within normal limits without focal mass. Spleen measures 11.3 cm. Left renal echo texture is normal without hydronephrosis, mass or stone. Left kidney measures 12.4 cm. Impression: 1: Unremarkable left upper abdominal ultrasound. Reviewed, dictated and finalized at location A. Impression: 1: Unremarkable left upper abdominal ultrasound.
== END ==
PROVIDERS: PCP Internal Medicine; Visit Provider Nurse Practitioner
DX: R10.12 Left upper quadrant pain (principal)
CPT/HCPCS: 76705

== ENCOUNTER 2021-12-20 13:15 | Emergency (ER) | payer BC, SELFPAY ==
[2021-12-20] VITALS (23 sets, daily range): BP systolic 128–143; BP diastolic 73–89; PULSE 73–95; RESP 12–24; TEMP 36.7; O2SAT 94–100
--- NOTE | ~2021-12-20 | XR_ITS ---
XR chest 2V 12/20/2021 14:10 Indication: Shortness of breath. Hypertension. Rapid heart rate. Procedure: 2 view chest Comparison: Comparison to multiple prior studies sequentially, with oldest reviewed study dated 10/25. Findings: Heart size normal. No focal air space disease, pulmonary edema, pleural effusion or suspect ed pneumothorax. Impression: 1: No acute cardiopulmonary disease. Reviewed, dictated and finalized at location A. Impression: 1: No acute cardiopulmonary disease.
--- NOTE | 2021-12-20 13:22 | ECG_ITS ---
Measurements Intervals [place] Rate: 74 P: 10 DE: 189 QRS: 45 QRSD: 111 T: 37 QT: 354 QTc: 394 Interpretive Statements SINUS RHYTHM INCOMPLETE RIGHT BUNDLE BRANCH BLOCK BORDERLINE T WAVE ABNORMALITY- ANTERIOR LEADS BASELINE ARTIFACT- I, II, III, AVR BORDERLINE ECG COMPARED TO ECG 11/21/2021 05:55:06 NO SIGNIFICANT CHANGES Electronically Signed On 12-20-2021 18:23:09 CDT by Blaise Bowman D.O.
--- NOTE | 2021-12-20 13:35 | ED.ARRPALP ---
HPI - Arrhythmia/Palpitations General Chief Complaint: Arrhythmia/Palpitations Stated Complaint: heart racing with SOB Time Seen by Provider: 12/20/21 13:24 History of Present Illness HPI narrative: Patient is a 46-year-old male here for evaluation of palpitations, shortness of breath and chest tightness today. Patient states that he was walking around the grocery store when he started to feel somewhat winded, he then got an alert on his apple watch that his heart rate was 110. At this time he also developed chest tightness. Is resolved without intervention. Patient elected to seek treatment once similar episode happened about 2 hours later dyspnea and chest tightness in addition to a fast heart rate. Patient has had no history of these sensations in the past. He is a smoker. He denies any leg swelling, nausea or vomiting, diaphoresis, syncope, lightheadedness or dizziness, headaches, fevers or chills. Related Data Allergies Allergy/AdvReac Type Severity Reaction Status Date / Time No Known Allergies Allergy Unknown Verified 11/26/21 15:27 Review of Systems Review of Systems: Gen: Denies fevers or chills Eyes: Denies eye pain or visual change ENT: Denies congestion Respiratory: Reports dyspnea. Denies cough. CV: Reports chest pain and palpitations GI: Denies abdominal pain nausea, emesis or diarrhea denies burning, urgency, frequency or hematuria Musculoskeletal: Denies back pain or muscle pain Neuro: Denies numbness, tingling, weakness or focal weakness Skin: Denies rash Except as documented, all other systems reviewed and negative [facility] Past Medical History Medical History Cellulitis of lower leg Left Cholecystectomy planned 2018 Mild acid reflux Recurrent tinea pedis Smoker Surgical History Surgical History History of cholecystectomy Family History Family History Father Family history of thyroid disease Diabetes mellitus Hypertension Family history of hypothyroidism Mother Hypertension Other Cerebrovascular accident Family history of arthritis Family history of kidney disease Social History Social History Social History: tea and half and half coffee Smoking packs per day: 1 Smoking cigarettes per day: 20.0 Smoking status: Current every day smoker Tobacco type: cigarettes Alcohol intake: never Gender identity (if verbalized by the patient): Male Exam Narrative: APPEARANCE: Well appearing, no pain in distress, well-nourished. Head: Normocephalic and atraumatic. EYES: PERRLA/EOMI, conjunctivae clear NOSE: No nasal drainage EARS: External ear normal in appearance THROAT: Oropharynx is clear. Mucous membranes are moist. NECK: Supple. No adenopathy, no masses. RESPIRATORY: expiratory wheezes in right lung base. Airway patent, respirations nonlabored. Clear to auscultation bilaterally, no rales, rhonchi. CARDIOVASCULAR: Regular rate and rhythm without murmurs, rubs, or gallops. ABDOMINAL: Normoactive bowel sounds. Soft, nontender, nondistended. No rebound tenderness or guarding. MUSCULOSKELETAL: Extremities are warm and well-perfused. Moves all extremities well. No edema. NEURO: Normal speech. No focal neurologic deficits. SKIN: Skin is warm and dry. No rashes. PSYCHIATRIC: Normal affect/mood. Course Vital Signs Vital signs: Vital Signs Temperature 98.0 F 12/20/21 13:19 Pulse Rate 95 12/20/21 13:19 Respiratory Rate 16 12/20/21 13:19 Blood Pressure 143/89 H 12/20/21 13:19 Pulse Oximetry 100 12/20/21 13:19 Oxygen Delivery Room Air 12/20/21 13:19 Temperature 98.0 F 12/20/21 13:19 Pulse Rate 74 12/20/21 17:31 Respiratory Rate 12 12/20/21 17:31 Blood Pressure 138/78 12/20/21 17:30 Pulse Oximetry 100 12/20/21 17:31 Oxygen Delivery Room Air 12/20/21 13:19
[2021-12-20 13:41] LABS: Basophils Absolute Auto 0.1 K/mm3 (0.0-0.1); Basophils Percent Auto 0.9 % (0.2-1.2); Eosinophils Absolute Auto 0.4 K/mm3 (0-0.3); Eosinophils Percent Auto 3.2 % (0-4.4); Hematocrit 44.4 % (42.0-52.0); Hemoglobin 15.5 g/dL (14.0-18.0); Immature Granulocyte Absolute 0.04 K/mm3 (0.00-0.031); Immature Granulocyte Percent A 0.3 % (0-0.5); Lymphocytes Absolute Auto 2.78 K/mm3 (0.9-3.2); Lymphocytes Percent Auto 23.9 % (18.3-44.2); Mean Corpuscular HGB Conc 34.9 g/dl (32-36); Mean Corpuscular Hemoglobin 32.2 pg (26-34); Mean Corpuscular Volume 92.1 fl (80-100); Mean Platelet Volume 9.7 fl (7.4-10.4); Monocytes Absolute Auto 0.6 K/mm3 (0.1-0.6); Monocytes Percent Auto 5.3 % (2.6-8.5); Neutrophils Absolute Auto 7.7 K/mm3 (1.3-6.7); Neutrophils Percent Auto 66.4 % (45.5-73.1); Platelet Count Result 225 k/mm3 (150-375); Red Blood Count 4.82 M/mm3 (4.6-6.20); Red Cell Distribution Width 12.8 % (11.5-14.5); White Blood Count 11.7 K/mm3 (4.5-10.0)
[2021-12-20] MEDS: ALBUTEROL SULFATE NEB 2.5 MG/3 ML INH 5 MG INHALATION (13:43)
[2021-12-20 13:52] LABS: Alanine Aminotransferase 26 U/L (6-50); Albumin Level 4.3 g/dL (3.5-5.1); Alkaline Phosphatase 79 U/L (38-126); Anion Gap 10 mmol/L (8-16); Aspartate Amino Transferase 23 U/L (17-59); Bilirubin,Total 0.4 mg/dL (0.2-1.3); Blood Urea Nitrogen 15 mg/dL (9-20); Carbon Dioxide 24 mmol/L (22-30); Chloride 104 mmol/L (98-107); Estimated CRCL calculation 153 ml/min; Estimated Glomerular Filt Rate > 60; Glucose 135 mg/dL (65-110); Lipase 72 U/L (23-300); Potassium 3.6 mmol/L (3.4-5.0); Sodium 138 mmol/L (137-145)
[2021-12-20 14:03] LABS: Troponin I < 0.012 ng/mL (0.000-0.034)
[2021-12-20 14:05] LABS: Prothrombin Time 12.8 Seconds (11.1-14.7)
[2021-12-20 14:06] LABS: Partial Thromboplastin Time 30.4 SECONDS (22.3-36.8)
[2021-12-20 14:08] LABS: NT Pro B Type Natriuretic Pept 109 pg/mL (5-100)
[2021-12-20 14:30] LABS: Thyroid Stimulating Hormone 0.668 uIU/mL (0.465-4.680)
[2021-12-20 16:41] LABS: D Dimer 0.32 ug/mL (<0.48)
[2021-12-20 16:51] LABS: Troponin I < 0.012 ng/mL (0.000-0.034)
== END 2021-12-20 18:27 | disposition home or self-care (01) ==
PROVIDERS: Physician Assistant; Emergency Provider Emergency Medicine; PCP Internal Medicine
DX: R00.2 Palpitations (principal); K21.9 Gastro-esophageal reflux disease without esophagitis; F17.210 Nicotine dependence, cigarettes, uncomplicated; I45.10 Unspecified right bundle-branch block; R94.31 Abnormal electrocardiogram [ECG] [EKG]
CPT/HCPCS: 36415; 71046; 80053; 83690; 83880; 84443; 84484; 85025; 85380; 85610; 85730; 93005; 94640; 99284

== ENCOUNTER 2021-12-23 15:02 | Outpatient (CLI) | payer BC, SELFPAY ==
[2021-12-23 19:59] LABS: Cholesterol 183 mg/dL (0-200); HDL Direct 43 mg/dL; Triglycerides 111 mg/dL (<150)
[2021-12-23 20:11] LABS: LDL Cholesterol Direct 90 mg/dL
== END 2021-12-23 15:03 | disposition home or self-care (01) ==
LOC: ANHGOSHLAB 15:04
PROVIDERS: PCP Internal Medicine; Visit Provider Clinical Nurse Specialist
DX: Z13.220 Encounter for screening for lipoid disorders (principal)
CPT/HCPCS: 36415; 80061

== ENCOUNTER 2022-01-01 09:34 | Emergency (ER) | payer BC, SELFPAY ==
--- NOTE | ~2022-01-01 | XR_ITS ---
EXAMINATION: XR chest 2V DATE: 01/01/2022 10:31 INDICATION: Shortness of breath and left-sided chest pain TECHNIQUE: PA and lateral views of the chest were obtained. COMPARISON: Chest radiograph dated 12/20/2021 FINDINGS: The lungs remain clear with no focal airspace opacities, pulmonary edema, pleural effusion or pneumot horax. The cardiomediastinal silhouette is normal. Chronic mild anterior wedging of a few lower thora cic vertebral bodies. IMPRESSION: 1. No acute cardiopulmonary disease. Reviewed, dictated and finalized at location A.
--- NOTE | 2022-01-01 09:47 | ECG_ITS ---
Measurements Intervals [place] Rate: 69 P: 14 UT: 181 QRS: 45 QRSD: 99 T: 34 QT: 369 QTc: 397 Interpretive Statements SINUS RHYTHM INCOMPLETE RIGHT BUNDLE BRANCH BLOCK COMPARED TO ECG 12/20/2021 13:38:01 NO SIGNIFICANT CHANGES Electronically Signed On 01-01-2022 17:25:04 CDT by Wyatt Johsn M.D.
[2022-01-01 09:51] VITALS: BP 128/77; PULSE 72; RESP 18; TEMP 36.4; O2SAT 100
[2022-01-01 10:33] LABS: Basophils Absolute Auto 0.1 K/mm3 (0.0-0.1); Basophils Percent Auto 1.2 % (0.2-1.2); Eosinophils Absolute Auto 0.2 K/mm3 (0-0.3); Eosinophils Percent Auto 2.9 % (0-4.4); Hematocrit 44.5 % (42.0-52.0); Hemoglobin 15.4 g/dL (14.0-18.0); Immature Granulocyte Absolute 0.02 K/mm3 (0.00-0.031); Immature Granulocyte Percent A 0.3 % (0-0.5); Lymphocytes Absolute Auto 2.02 K/mm3 (0.9-3.2); Mean Corpuscular HGB Conc 34.6 g/dl (32-36); Mean Corpuscular Hemoglobin 31.8 pg (26-34); Mean Corpuscular Volume 91.9 fl (80-100); Mean Platelet Volume 9.6 fl (7.4-10.4); Monocytes Absolute Auto 0.5 K/mm3 (0.1-0.6); Monocytes Percent Auto 6.9 % (2.6-8.5); Neutrophils Absolute Auto 3.8 K/mm3 (1.3-6.7); Neutrophils Percent Auto 57.7 % (45.5-73.1); Platelet Count Result 212 k/mm3 (150-375); Red Blood Count 4.84 M/mm3 (4.6-6.20); Red Cell Distribution Width 13.1 % (11.5-14.5); White Blood Count 6.5 K/mm3 (4.5-10.0)
--- NOTE | 2022-01-01 10:37 | ED.CHESTPAIN ---
HPI - Chest Pain General Chief Complaint: Chest Pain <JOHANNY Reyes Last Filed: 01/01/22 14:42> Stated Complaint: chest pain <JOHANNY Reyes Last Filed: 01/01/22 14:42> Time Seen by Provider: 01/01/22 10:21 <JOHANNY Reyes Last Filed: 01/01/22 14:42> History of Present Illness HPI narrative: Patient is a 46-year-old male here for evaluation of right-sided chest pain for the past 12 hours. Patient states the pain came on while he was at rest, sharp in nature, intermittent, and only for certain positions, not provoked by exertion. Denies radiation of pain. Denies fevers or chills, nausea or vomiting, shortness of breath, palpitations or leg swelling. Patient has been seen in the ED times for chest pain, work-up has been unrevealing including D-dimer, BNP, chest x-rays, troponins and EKGs He followed up with his primary care provider who ordered a stress test and thought that the symptoms may be due to anxiety. He is scheduled for this test at the end of this month. <JOHANNY Reyes Last Filed: 01/01/22 14:42> Related Data Allergies/Adverse Reactions: Allergies Allergy/AdvReac Type Severity Reaction Status Date / Time No Known Allergies Allergy Unknown Verified 12/23/21 14:26 <JOHANNY Reyes Last Filed: 01/01/22 14:42> Review of Systems Review of Systems: Gen: Denies fevers or chills Eyes: Denies eye pain or visual change ENT: Denies congestion Respiratory: Denies shortness of breath or cough CV: Reports chest pain. GI: Denies abdominal pain nausea, emesis or diarrhea denies burning, urgency, frequency or hematuria Musculoskeletal: Denies back pain or muscle pain Neuro: Denies numbness, tingling, weakness or focal weakness Skin: Denies rash Except as documented, all other systems reviewed and negative <JOHANNY Reyes Last Filed: 01/01/22 14:42> FOR[facility]LY [facility] Past Medical History Medical History: Medical History Cellulitis of lower leg Left Cholecystectomy planned 2018 Mild acid reflux Recurrent tinea pedis Smoker <Liane Dawkins PA-C - Last Filed: 01/01/22 14:42> Surgical History Surgical History: Surgical History History of cholecystectomy <Liane Dawkins PA-C - Last Filed: 01/01/22 14:42> Family History Family History: Family History (Reviewed 12/23/21 @ 14:23 by Loly Cisneros, [facility]) Father Family history of thyroid disease Diabetes mellitus Hypertension Family history of hypothyroidism Mother Hypertension Other Cerebrovascular accident Family history of arthritis Family history of kidney disease <Liane Dawkins PA-C - Last Filed: 01/01/22 14:42> Social History Social History: Social History (Reviewed 12/23/21 @ 14:23 by Loly Cisneros, [facility]) Social History: tea and half and half coffee Smoking packs per day: 1 Smoking cigarettes per day: 20.0 Smoking status: Current every day smoker Tobacco type: cigarettes Alcohol intake: never Gender identity (if verbalized by the patient): Male <Liane Dawkins PA-C - Last Filed: 01/01/22 14:42> Exam Narrative: APPEARANCE: Well appearing, no pain in distress, well-nourished. Head: Normocephalic and atraumatic. EYES: PERRLA/EOMI, conjunctivae clear NOSE: No nasal drainage EARS: External ear normal in appearance THROAT: Oropharynx is clear. Mucous membranes are moist. NECK: Supple. No adenopathy, no masses. RESPIRATORY: Airway patent, respirations nonlabored. Clear to auscultation bilaterally, no rales, rhonchi, wheezing. CARDIOVASCULAR: Regular rate and rhythm without murmurs, rubs, or gallops. ABDOMINAL: Normoactive bowel sounds. Soft, nontender, nondistended. No rebound tenderness or guarding. MUSCULOSKELETAL: Extremities are warm and well-perfused. Moves all extremities well. No edema. NEUR
[2022-01-01 10:46] LABS: Prothrombin Time 12.3 Seconds (11.1-14.7)
[2022-01-01 10:52] LABS: Chloride 103 mmol/L (98-107)
[2022-01-01 10:54] VITALS: BP 128/83; PULSE 62; RESP 19; O2SAT 97
[2022-01-01 10:57] LABS: Alanine Aminotransferase 26 U/L (6-50); Albumin Level 4.4 g/dL (3.5-5.1); Alkaline Phosphatase 64 U/L (38-126); Anion Gap 13 mmol/L (8-16); Aspartate Amino Transferase 23 U/L (17-59); Bilirubin,Total 0.4 mg/dL (0.2-1.3); Blood Urea Nitrogen 14 mg/dL (9-20); Calcium 8.9 mg/dL (8.4-10.2); Carbon Dioxide 23 mmol/L (22-30); Estimated CRCL calculation 179 ml/min; Estimated Glomerular Filt Rate > 60; Glucose 116 mg/dL (65-110); Lipase 41 U/L (23-300); Potassium 3.9 mmol/L (3.4-5.0); Sodium 139 mmol/L (137-145)
[2022-01-01 11:03] LABS: Troponin I < 0.012 ng/mL (0.000-0.034)
[2022-01-01 11:27] VITALS: BP 123/84; PULSE 71; RESP 16; O2SAT 100
== END 2022-01-01 11:29 | disposition home or self-care (01) ==
PROVIDERS: Emergency Provider Emergency Medicine; PCP Internal Medicine
DX: R07.89 Other chest pain (principal); K21.9 Gastro-esophageal reflux disease without esophagitis; F17.210 Nicotine dependence, cigarettes, uncomplicated; I45.10 Unspecified right bundle-branch block
CPT/HCPCS: 36415; 71046; 80053; 83690; 84484; 85025; 85610; 85730; 93005; 99284

== ENCOUNTER 2022-01-11 09:37 | Emergency (ER) | payer BC, SELFPAY ==
[2022-01-11] VITALS (27 sets, daily range): BP systolic 116–142; BP diastolic 74–90; PULSE 59–75; RESP 13–26; TEMP 36.6–36.8; O2SAT 94–100
--- NOTE | ~2022-01-11 | XR_ITS ---
EXAMINATION: XR chest 2V DATE: 01/11/2022 13:47 INDICATION: Shortness of breath and central chest pain TECHNIQUE: PA and lateral views of the chest were obtained. COMPARISON: Chest radiograph dated 01/01/2022 FINDINGS: The lungs remain clear with no focal airspace opacities, pulmonary edema, pleural effusion or pneumot horax. The cardiomediastinal silhouette is normal. Visualized bones and soft tissues are unremarkable . IMPRESSION: 1. No acute cardiopulmonary disease. Reviewed, dictated and finalized at location A.
--- NOTE | 2022-01-11 09:41 | ECG_ITS ---
Measurements Intervals [place] Rate: 68 P: 11 [place]: 184 QRS: 44 QRSD: 93 T: 30 QT: 371 QTc: 395 Interpretive Statements SINUS RHYTHM RSR' IN V1 OR V2, PROBABLY NORMAL VARIANT BORDERLINE ECG COMPARED TO ECG 01/01/2022 09:51:05 NO SIGNIFICANT CHANGES Electronically Signed On 01-11-2022 15:43:46 CDT by Devyn Shin M.D.
[2022-01-11 10:03] LABS: Basophils Absolute Auto 0.1 K/mm3 (0.0-0.1); Basophils Percent Auto 1.3 % (0.2-1.2); Eosinophils Absolute Auto 0.2 K/mm3 (0-0.3); Eosinophils Percent Auto 3.2 % (0-4.4); Hematocrit 47.6 % (42.0-52.0); Hemoglobin 16.4 g/dL (14.0-18.0); Immature Granulocyte Absolute 0.02 K/mm3 (0.00-0.031); Immature Granulocyte Percent A 0.3 % (0-0.5); Lymphocytes Absolute Auto 2.24 K/mm3 (0.9-3.2); Lymphocytes Percent Auto 29.8 % (18.3-44.2); Mean Corpuscular HGB Conc 34.5 g/dl (32-36); Mean Corpuscular Hemoglobin 31.9 pg (26-34); Mean Corpuscular Volume 92.6 fl (80-100); Mean Platelet Volume 9.8 fl (7.4-10.4); Monocytes Absolute Auto 0.5 K/mm3 (0.1-0.6); Monocytes Percent Auto 6.9 % (2.6-8.5); Neutrophils Absolute Auto 4.4 K/mm3 (1.3-6.7); Neutrophils Percent Auto 58.5 % (45.5-73.1); Platelet Count Result 250 k/mm3 (150-375); Red Blood Count 5.14 M/mm3 (4.6-6.20); Red Cell Distribution Width 13.1 % (11.5-14.5); White Blood Count 7.5 K/mm3 (4.5-10.0)
--- NOTE | 2022-01-11 10:06 | ED.GENADULT ---
HPI - General Adult General Chief complaint: Chest Pain Stated complaint: sob, chest pain Time Seen by Provider: 01/11/22 09:38 History of Present Illness HPI narrative: 46-year-old male with history of anxiety, right bundle beryl block, obesity and smoking presents to the emergency department for evaluation of recurrent chest pain. Patient states he was at rest this morning when he had onset of substernal chest pain. Patient states this occurred while he was at rest and after he had smoked a cigarette. Upon arrival to the emergency room patient does have anxiety and is tearful because he states he is unsure of what is going on. Patient does have follow-up scheduled and has an outpatient echo and stress test scheduled for the and respectively. Patient has a past medical history of atypical chest pain, anxiety, right bundle beryl block. Related Data Allergies Allergy/AdvReac Type Severity Reaction Status Date / Time No Known Allergies Allergy Unknown Verified 01/11/22 10:52 Review of Systems Review of Systems: CONSTITUTIONAL: Denies fever, chills, or sweats. EYES: Denies visual changes, redness, or discharge. ENT: Denies rhinorrhea, congestion, sore throat, or otalgia. CARDIOVASCULAR: See HPI RESPIRATORY: Denies cough or dyspnea. GASTROINTESTINAL: Denies abdominal pain, nausea, vomiting, or diarrhea. GENITOURINARY: Denies dysuria or hematuria. SKIN: Denies rash or itching. MUSCULOSKELETAL: Denies back pain, joint pain, or myalgia. NEUROLOGIC: Denies headache, numbness, or weakness. PSYCHIATRIC: Anxiety PMF Past Medical History Medical History Cellulitis of lower leg Left Cholecystectomy planned 2018 Mild acid reflux Recurrent tinea pedis Smoker Surgical History Surgical History History of cholecystectomy Family History Family History Father Family history of thyroid disease Diabetes mellitus Hypertension Family history of hypothyroidism Mother Hypertension Other Cerebrovascular accident Family history of arthritis Family history of kidney disease Social History Social History Social History: tea and half and half coffee Smoking packs per day: 1 Smoking cigarettes per day: 20.0 Smoking status: Current every day smoker Tobacco type: cigarettes Alcohol intake: never Gender identity (if verbalized by the patient): Male Exam Narrative: APPEARANCE: Well appearing, no pain, no distress, well-nourished. HEAD: normocephalic, atraumatic. EYES: PERRLA/EOMI, conjunctivae clear. NOSE: Normal no drainage NECK: Supple. No adenopathy, no masses. RESPIRATORY: Airway patent, respirations nonlabored. Clear to auscultation bilaterally, no rales, rhonchi, wheezing. CARDIOVASCULAR: Regular rate and rhythm without murmurs rubs or gallops. ABDOMINAL: Soft, nontender, nondistended, normal bowel sounds MUSCULOSKELETAL: Moves all extremities. Strength/ROM intact, No edema, No calf tenderness. NEURO: Alert. Cranial nerves II through XII intact. Grossly intact SKIN: Warm, dry. Normal Color PSYCHIATRIC: Tearful affect Course Course Emergency Course: Patient did feel improved with treatment. Patient was treated with Ativan for his anxiety. Patient states that his chest pain was resolved. Patient had negative serial troponins. Patient was afebrile with no leukocytosis. Patient's electrolytes were within normal limits. X-ray showed no acute acute cardiopulmonary abnormality. Patient and family were updated on results of the work-up and plan for treatment. Patient was provided a small prescription for Ativan for home. Patient was encouraged to have close follow-up with primary care physician and to discuss his social anxieties that he has been having. Patient was also advised that he would need different medications for
[2022-01-11 10:13] LABS: Alanine Aminotransferase 28 U/L (6-50); Albumin Level 4.8 g/dL (3.5-5.1); Alkaline Phosphatase 93 U/L (38-126); Anion Gap 12 mmol/L (8-16); Aspartate Amino Transferase 26 U/L (17-59); Bilirubin,Total 0.5 mg/dL (0.2-1.3); Blood Urea Nitrogen 17 mg/dL (9-20); Calcium 9.5 mg/dL (8.4-10.2); Carbon Dioxide 24 mmol/L (22-30); Chloride 104 mmol/L (98-107); Estimated CRCL calculation 156 ml/min; Estimated Glomerular Filt Rate > 60; Glucose 109 mg/dL (65-110); Potassium 4.2 mmol/L (3.4-5.0); Sodium 140 mmol/L (137-145)
[2022-01-11 10:26] LABS: Troponin I < 0.012 ng/mL (0.000-0.034)
[2022-01-11] MEDS: ASPIRIN 81 MG CHEWABLE TABLET 324 MG PO (10:41)
[2022-01-11] MEDS: LORazepam INJ (*CRX) 2 MG/ML VIAL 1 MG IV PUSH (10:42)
[2022-01-11 13:33] LABS: Troponin I < 0.012 ng/mL (0.000-0.034)
== END 2022-01-11 14:20 | disposition home or self-care (01) ==
PROVIDERS: Emergency Provider Emergency Medicine; PCP Internal Medicine
DX: F41.9 Anxiety disorder, unspecified (principal); R07.9 Chest pain, unspecified; K21.9 Gastro-esophageal reflux disease without esophagitis; F17.210 Nicotine dependence, cigarettes, uncomplicated
CPT/HCPCS: 36415; 71046; 80053; 84484; 85025; 93005; 96374; 99284; A9270; J2060

== ENCOUNTER 2022-01-17 07:35 | Outpatient (CLI) | payer BC, SELFPAY ==
--- NOTE | 2022-01-17 08:02 | ECHO_ITS ---
Patient Info Name: Onel Conway Age: 46 years : 1975 Gender: Male Ht: 71 in Wt: 277 lbs BSA: 2.56 m2 HR: 63 bpm BP: 123 / 75 mmHg Heart Rhythm: Sinus Rhythm Technical Quality: Fair Exam Date: 01/17/2022 8:19 AM Exam Location: [facility] Pulmonary Patient Status: Outpatient Admit Date: 01/17/2022 Staff Ordering Physician: Brenna Bowen Memorandum Statement Clerk: Chayo Farrar RDCS Attending Provider: Brenna Bowen Referring Physician: Jessi JARA; Exam Type: CA echo doppler color flow Study Info Indications R06.02 - Shortness of breath Complete two-dimensional, color flow and Doppler transthoracic echocardiogram is performed. Summary 1. Complete two-dimensional, color flow and Doppler transthoracic echocardiogram is performed. 2. Left ventricular chamber dimension is normal. 3. Left ventricular systolic function is normal, estimated at 60-65%. 4. The left ventricular diastolic function is normal. 5. E/e' 8 is minimally elevated. 6. Left atrial chamber dimension is mildly enlarged. 7. No pulmonary hypertension, estimated pulmonary arterial systolic pressure is 31 mmHg. Left Ventricle E/e' 8 is minimally elevated. Left ventricular chamber dimension is normal. Left ventricular systolic function is normal, estimated at 60-65%. The left ventricular diastolic function is normal. Right Ventricle Right ventricular chamber dimension is normal. Right ventricular systolic function is normal. Left Atria Left atrial chamber dimension is mildly enlarged. Right Atria Right atrial chamber dimension is normal. Aortic Valve The aortic valve is trileaflet. There is no aortic valve stenosis. There is no aortic valve regurgitation. Pulmonic Valve There is no pulmonic regurgitation. Mitral Valve There is no mitral valve stenosis. There is no mitral valve regurgitation. Tricuspid Valve There is no tricuspid valve regurgitation. No pulmonary hypertension, estimated pulmonary arterial systolic pressure is 31 mmHg. Pericardium/Pleural There is no pericardial effusion. Inferior Vena Cava Normal inferior vena cava with >50% collapse upon inspiration consistent with normal right atrial pressure, 5 mmHg. Aorta The aortic root size at the sinus of Valsalva is normal. Left Ventricular Outflow Tract Name Value Normal LVOT 2D LVOT Diameter 2.1 cm LVOT Doppler LVOT Peak Gradient 4 mmHg LVOT Mean Gradient 2 mmHg LVOT VTI 23 cm LVOT VTI/AV VTI Ratio 0.9 LVOT Stroke Volume 81 ml LVOT CO 15.7 l/min LVOT CI 6.1 l/min/m2 Pulmonic Valve Name Value Normal PV Doppler PV Peak Gradient 5 mmHg
== END 2022-01-17 07:36 | disposition home or self-care (01) ==
LOC: ANHCARD 07:37
PROVIDERS: PCP Internal Medicine; Visit Provider Clinical Nurse Specialist
DX: R06.02 Shortness of breath (principal)
CPT/HCPCS: 93306

== ENCOUNTER 2022-01-21 08:45 | Outpatient (CLI) | payer BC, SELFPAY ==
--- NOTE | 2022-01-21 08:53 | EST_ITS ---
Patient Info Name: Onel Conway Age: 46 years : 1975 Gender: Male Ht: 71 in Wt: 277 lbs BSA: 2.56 m2 Exam Date: 01/21/2022 9:20 AM Exam Location: [facility] Stress Patient Status: Outpatient Admit Date: 01/21/2022 Staff Ordering Physician: Brenna Bowen Attending Provider: Brenna Bowen Exercise Technologist: Manpreet Albert RDCS, RT Exercise Physician: Blaise Bowman DO Exam Type: CA stress test treadmill Study Info A treadmill exercise stress test was performed. Summary 1. 1. Negative Francisco Javier exercise stress test for ischemic ST changes by ECG criteria. 2. 2. Good functional capacity, achieving 10 METs of workload. 3. 3. Appropriate HR response to exercise. 4. 4. Appropriate HR recovery at 1 minute post exercise. 5. 5. No imaging with stress testing. 6. 6. Patient informed of the above results. Protocol: Francisco Javier Stress ECG Details Stage: REST Duration (min): 1 min : 31 sec Speed (mph): 0.0 Grade (%): 0 HR (bpm): 70 SBP (mmHg): 125 DBP (mmHg): 68 METS: --- Stage: REST Duration (min): 11 min : 25 sec Speed (mph): 0.0 Grade (%): 0 HR (bpm): 67 SBP (mmHg): 125 DBP (mmHg): 68 METS: --- Stage: STAGE 1 Duration (min): 1 min : 0 sec Speed (mph): 1.7 Grade (%): 10 HR (bpm): 94 SBP (mmHg): 125 DBP (mmHg): 68 METS: --- Stage: STAGE 1 Duration (min): 2 min : 0 sec Speed (mph): 1.7 Grade (%): 10 HR (bpm): 101 SBP (mmHg): 125 DBP (mmHg): 68 METS: --- Stage: STAGE 1 Duration (min): 3 min : 0 sec Speed (mph): 1.7 Grade (%): 10 HR (bpm): 101 SBP (mmHg): 142 DBP (mmHg): 61 METS: --- Stage: STAGE 2 Duration (min): 1 min : 0 sec Speed (mph): 2.5 Grade (%): 12 HR (bpm): 114 SBP (mmHg): 142 DBP (mmHg): 61 METS: --- Stage: STAGE 2 Duration (min): 2 min : 0 sec Speed (mph): 2.5 Grade (%): 12 HR (bpm): 120 SBP (mmHg): 153 DBP (mmHg): 59 METS: --- Stage: STAGE 2 Duration (min): 3 min : 0 sec Speed (mph): 2.5 Grade (%): 12 HR (bpm): 124 SBP (mmHg): 153 DBP (mmHg): 59 METS: --- Stage: STAGE 3 Duration (min): 1 min : 0 sec Speed (mph): 3.4 Grade (%): 14 HR (bpm): 149 SBP (mmHg): 163 DBP (mmHg): 63 METS: --- Stage: STAGE 3 Duration (min): 2 min : 0 sec Speed (mph): 3.4 Grade (%): 14 HR (bpm): 164 SBP (mmHg): 163 DBP (mmHg): 63 METS: --- Stage: STAGE 3 Duration (min): 2 min : 59 sec Speed (mph): 4.2 Grade (%): 16 HR (bpm): 173 SBP (mmHg): 186 DBP (mmHg): 84 METS: --- Stage: RECOVERY Duration (min): 1 min : 0 sec Speed (mph): 0.0 Grade (%): 0 HR (bpm): 145 SBP (mmHg): 186 DBP (mmHg): 84 METS: --- Stage: RECOVERY Duration (min): 2 min : 0 sec Speed (mph): 0.0 Grade (%): 0 HR (b
== END 2022-01-21 08:46 | disposition home or self-care (01) ==
LOC: ANHCARD 08:47
PROVIDERS: PCP Internal Medicine; Visit Provider Clinical Nurse Specialist
DX: R06.02 Shortness of breath (principal)
CPT/HCPCS: 93017

== ENCOUNTER 2022-01-21 21:09 | Emergency (ER) | payer BC, SELFPAY ==
--- NOTE | ~2022-01-21 | CT_ITS ---
EXAMINATION: CT abdomen pelvis wo con DATE: 01/22/2022 01:05 INDICATION: Right lower quadrant pain. TECHNIQUE: Computed tomography (CT) of the abdomen and pelvis was performed without intravenous contr ast. The dose-length product was 1434.60 mGy-cm. Automated exposure control and iterative reconstruct ion technique were employed. COMPARISON: CT dated 09/30/2021. FINDINGS: Lung bases are unremarkable. No significant pleural or pericardial effusion. There are chol ecystectomy clips. The spleen, pancreas, adrenal glands and kidneys are unremarkable. There is stable mild perinephric stranding. There are cholecystectomy clips. Bowel pattern is nonobstructive. No rocky dence for appendicitis or diverticulitis. No free air or free fluid. No significant vascular abnormal ity. No lymphadenopathy. Mild wedge-shaped deformities of T11-L1 which appear chronic. No acute osseo us abnormality. No focal lytic or blastic lesions. IMPRESSION: 1. No acute abdominal abnormality. Reviewed, dictated and finalized at location B.
[2022-01-21 21:11] VITALS: BP 132/94; PULSE 70; RESP 20; TEMP 36.4; O2SAT 99
[2022-01-21 21:22] LABS: Basophils Absolute Auto 0.1 K/mm3 (0.0-0.1); Eosinophils Absolute Auto 0.5 K/mm3 (0-0.3); Eosinophils Percent Auto 4.5 % (0-4.4); Hematocrit 46.3 % (42.0-52.0); Hemoglobin 15.9 g/dL (14.0-18.0); Immature Granulocyte Absolute 0.03 K/mm3 (0.00-0.031); Immature Granulocyte Percent A 0.3 % (0-0.5); Lymphocytes Absolute Auto 3.71 K/mm3 (0.9-3.2); Lymphocytes Percent Auto 35.5 % (18.3-44.2); Mean Corpuscular HGB Conc 34.3 g/dl (32-36); Mean Corpuscular Hemoglobin 31.8 pg (26-34); Mean Corpuscular Volume 92.6 fl (80-100); Mean Platelet Volume 9.5 fl (7.4-10.4); Monocytes Absolute Auto 0.8 K/mm3 (0.1-0.6); Monocytes Percent Auto 7.3 % (2.6-8.5); Neutrophils Absolute Auto 5.4 K/mm3 (1.3-6.7); Neutrophils Percent Auto 51.4 % (45.5-73.1); Platelet Count Result 234 k/mm3 (150-375); Red Cell Distribution Width 13.1 % (11.5-14.5); White Blood Count 10.5 K/mm3 (4.5-10.0)
[2022-01-21 21:32] LABS: Alanine Aminotransferase 25 U/L (6-50); Albumin Level 4.6 g/dL (3.5-5.1); Alkaline Phosphatase 92 U/L (38-126); Anion Gap 9 mmol/L (8-16); Aspartate Amino Transferase 24 U/L (17-59); Bilirubin,Total 0.4 mg/dL (0.2-1.3); Blood Urea Nitrogen 16 mg/dL (9-20); Carbon Dioxide 25 mmol/L (22-30); Chloride 105 mmol/L (98-107); Estimated CRCL calculation 179 ml/min; Estimated Glomerular Filt Rate > 60; Glucose 104 mg/dL (65-110); Lipase 84 U/L (23-300); Potassium 4.3 mmol/L (3.4-5.0); Sodium 139 mmol/L (137-145)
[2022-01-22 00:05] VITALS: BP 142/80; PULSE 82; RESP 16; O2SAT 100
[2022-01-22 00:13] LABS: Add Urine Microscopic? YES; Appearance Urine Clear (Clear); Bilirubin Urine Negative (Negative); Blood Urine 2+ (Negative); Color Urine Yellow (Yellow); Glucose Urine UA Negative (Negative); Ketones Urine Negative (Negative); Leukocyte Esterase Ur Negative LEU/UL (Negative); Mucus Urine Rare /lpf; Nitrate Urine Negative (Negative); Protein Urine Negative (Negative); Specific Grav Ur 1.024 (1.001-1.035); Squamous Epithelial Cell Urine Rare /hpf (Few); WBC Urine 0-3 /hpf
[2022-01-22 01:00] VITALS: BP 138/70; PULSE 82; RESP 16; TEMP 36.8; O2SAT 98
--- NOTE | 2022-01-22 01:03 | ED.GENADULT ---
HPI - General Adult General Chief complaint: Abdominal Pain Stated complaint: flank pain Time Seen by Provider: 01/22/22 00:01 History of Present Illness HPI narrative: Patient 46-year-old gentleman who presents to the emergency department with chief complaint of right flank pain and right lower quadrant pain. Patient states he started having sharp pain in the right right lower quadrant patient denies vomiting denies diarrhea reports that he is concerned that he may either have a kidney stone or appendicitis. Related Data Allergies Allergy/AdvReac Type Severity Reaction Status Date / Time No Known Allergies Allergy Unknown Verified 01/11/22 10:52 Review of Systems Review of Systems: A 10 system review of systems was completed on the patient and is negative except for what is stated in the HPI. Nursing and ancillary documentation was reviewed. PMFSH Past Medical History Medical History Cellulitis of lower leg Left Cholecystectomy planned 2018 Mild acid reflux Recurrent tinea pedis Smoker Surgical History Surgical History History of cholecystectomy Family History Family History Father Family history of thyroid disease Diabetes mellitus Hypertension Family history of hypothyroidism Mother Hypertension Other Cerebrovascular accident Family history of arthritis Family history of kidney disease Social History Social History Social History: tea and half and half coffee Smoking packs per day: 1 Smoking cigarettes per day: 20.0 Smoking status: Current every day smoker Tobacco type: cigarettes Alcohol intake: never Gender identity (if verbalized by the patient): Male Exam Narrative: GENERAL: Well-appearing, well-nourished, and in no acute distress. HEAD: Normocephalic, atraumatic. EYES: PERRLA and EOMI. ENT: Nares clear, no rhinorrhea or epistaxis. Mucous membranes moist. NECK: Supple. CHEST: Clear to auscultation. No respiratory distress. HEART: Regular rate and rhythm. No murmur heard. Normal peripheral pulses. ABDOMEN: Soft, nontender, nondistended, normal active bowel sounds. EXTREMITIES: Normal range of motion. No edema. SKIN: Warm, dry, no rash. NEURO: No focal deficits. Alert and oriented x3. PSYCH: Normal mood and affect. Course Course Emergency Course: CT scan showed no evidence of acute obstruction or acute abdominal pathology. Vital Signs Vital signs: Vital Signs Temperature 36.4 C 01/21/22 21:11 Pulse Rate 70 01/21/22 21:11 Respiratory Rate 20 01/21/22 21:11 Blood Pressure 132/94 H 01/21/22 21:11 Pulse Oximetry 99 01/21/22 21:11 Temperature 36.8 C 01/22/22 01:00 Pulse Rate 82 01/22/22 01:00 Respiratory Rate 16 01/22/22 01:00 Blood Pressure 138/70 01/22/22 01:00 Pulse Oximetry 98 01/22/22 01:00 Oxygen Delivery Room Air 01/22/22 00:05 Medical Decision Making Vital Signs Vital Signs: Vital Signs Temperature 36.4 C 01/21/22 21:11 Pulse Rate 70 01/21/22 21:11 Respiratory Rate 20 01/21/22 21:11 Blood Pressure 132/94 H 01/21/22 21:11 Pulse Oximetry 99 01/21/22 21:11 Temperature 36.8 C 01/22/22 01:00 Pulse Rate 82 01/22/22 01:00 Respiratory Rate 16 01/22/22 01:00 Blood Pressure 138/70 01/22/22 01:00 Pulse Oximetry 98 01/22/22 01:00 Oxygen Delivery Room Air 01/22/22 00:05 Lab Data Result diagrams: 01/21/22 21:17 01/21/22 21:17 Labs: Lab Results 01/21/22 01/21/22 01/21/22 Range/Units 21:17 21:17 23:57 WBC 10.5 H (4.5-10.0) K/mm3 RBC 5.00 (4.6-6.20) M/mm3 Hgb 15.9 (14.0-18.0) g/dL Hct 46.3 (42.0-52.0) % MCV 92.6 (80-100) fl MCH 31.8 (26-34) pg MCHC 34.3 (32-36) g/dl RDW 13.1 (11.5-14.5) % Plt Count 234 (150-375
[2022-01-22 01:52] VITALS: BP 140/78; PULSE 84; RESP 16; TEMP 36.8; O2SAT 98
== END 2022-01-22 01:55 | disposition home or self-care (01) ==
PROVIDERS: Emergency Provider Emergency Medicine; PCP Internal Medicine
DX: R10.31 Right lower quadrant pain (principal); F17.210 Nicotine dependence, cigarettes, uncomplicated
CPT/HCPCS: 36415; 74176; 80053; 81001; 83690; 85025; 99284

== ENCOUNTER 2022-01-23 06:31 | Emergency (ER) | payer BC, SELFPAY ==
--- NOTE | ~2022-01-23 | CT_ITS ---
EXAMINATION: CT abdomen pelvis w con DATE: 01/23/2022 08:50 INDICATION: Right lower quadrant abdominal pain TECHNIQUE: Computed tomography (CT) of the abdomen and pelvis was performed with 100 mL Omnipaque-350 intravenous contrast. Automated exposure control and iterative reconstruction technique were employe d. The dose-length product was 1445.13 mGy-cm. COMPARISON: 01/22/2022 FINDINGS: Lung bases are clear. Heart size is normal. No pericardial or pleural effusion. Small sliding-type hi atal hernia. Cholecystectomy clips the gallbladder fossa. Liver, spleen, pancreas, bilateral adrenal glands and kidneys are normal. Mild sigmoid diverticulosis. Small bowel and appendix are normal. Blad alexandru is normal. No free intraperitoneal gas or fluid. No pathologically enlarged abdominal or pelvic l ymphadenopathy. Small fat-containing right inguinal hernia. Chronic mild anterior wedging at T10-L1 l evel with multiple Schmorl's nodes. IMPRESSION: 1. No acute intra-abdominal/pelvic process. Specifically the appendix is normal. Reviewed, dictated and finalized at location A. IMPRESSION: 1. No acute intra-abdominal/pelvic process. Specifically the appendix is normal .
[2022-01-23 06:32] VITALS: BP 129/85; PULSE 80; RESP 16; TEMP 36.2; O2SAT 99
--- NOTE | 2022-01-23 07:22 | ED.BACK ---
HPI - Back Pain/Injury General Chief Complaint: Back Pain/Injury Stated Complaint: R LOWER BACK PAIN Time Seen by Provider: 01/23/22 07:22 Source: patient History of Present Illness HPI Narrative: 46 years old white male drove himself to the emergency room from work because of pain at the right lower back just above the pelvic bone area, radiating to the front, right lower quadrant, worse with certain position and movement, better laying still. Patient reported that pain started 3 days ago after having treadmill cardiac stress test. On the night of that day patient came to our emergency room for similar symptoms and work-up was negative. Patient was discharged on Tylenol and Flexeril. Patient cannot use Flexeril at work. 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 He denies any fever, chills, nausea, vomiting, urinary symptoms. Had history of kidney stone, cholecystectomy and GERD. He smokes, does not drink or uses drugs. Related Data Allergies Allergy/AdvReac Type Severity Reaction Status Date / Time No Known Allergies Allergy Unknown Verified 01/23/22 06:32 Review of Systems Review of Systems: All systems reviewed & are unremarkable except as noted in HPI and below PMFSH Past Medical History Medical History Cellulitis of lower leg Left Cholecystectomy planned 2018 Mild acid reflux Recurrent tinea pedis Smoker Surgical History Surgical History History of cholecystectomy Family History Family History Father Family history of thyroid disease Diabetes mellitus Hypertension Family history of hypothyroidism Mother Hypertension Other Cerebrovascular accident Family history of arthritis Family history of kidney disease Social History Social History Social History: tea and half and half coffee Smoking packs per day: 1 Smoking cigarettes per day: 20.0 Smoking status: Current every day smoker Tobacco type: cigarettes Alcohol intake: never Gender identity (if verbalized by the patient): Male Exam Narrative: General appearance: Well-developed, well-nourished Skin: Normal color Head: Normocephalic, nontraumatic Eyes: Clear conjunctiva ENT: Oropharynx normal, ears normal, nose normal Neck: Supple, nontender Chest and respiratory: Airway patent, no respiratory distress, no accessory muscle use Heart: Regular rate/rhythm Abdomen: Soft, mild to moderate tenderness right lower quadrant with pressure, no guarding or rebound, moderate tenderness right flank, no bruises, no rash, no organomegaly, quiet bowel sounds Vascular: Normal peripheral pulses, normal capillary refill. Musculoskeletal: Normal range of motion, nontender back Neurologic: Alert and oriented ?3, [employer] is normal as tested, no gross motor deficit Course Course Emergency Course: Musculoskeletal pain is my concern. 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 His pain started immediately after doing treadmill cardiac stress test, his pain gets worse with certain movement and position, work-up today did not show any significant finding to explain his symptoms except musculoskeletal. Patient probably need physical therapy. My recommendation to follow-up with his family physician for physical therapy order. Vital Signs Vital signs: Vital Signs Temperature 36.2 C L 01/23/22 06:32 Pulse Rate 80 01/23/22 06:32 Respiratory Rate 16 01/23/22 06:32 Blood Pressure 129/85 1
[2022-01-23 08:07] LABS: Basophils Absolute Auto 0.1 K/mm3 (0.0-0.1); Basophils Percent Auto 1.1 % (0.2-1.2); Eosinophils Absolute Auto 0.4 K/mm3 (0-0.3); Eosinophils Percent Auto 4.6 % (0-4.4); Hematocrit 46.3 % (42.0-52.0); Hemoglobin 15.8 g/dL (14.0-18.0); Immature Granulocyte Absolute 0.02 K/mm3 (0.00-0.031); Immature Granulocyte Percent A 0.2 % (0-0.5); Lymphocytes Absolute Auto 2.22 K/mm3 (0.9-3.2); Lymphocytes Percent Auto 27.4 % (18.3-44.2); Mean Corpuscular HGB Conc 34.1 g/dl (32-36); Mean Corpuscular Hemoglobin 31.9 pg (26-34); Mean Corpuscular Volume 93.5 fl (80-100); Mean Platelet Volume 9.6 fl (7.4-10.4); Monocytes Absolute Auto 0.5 K/mm3 (0.1-0.6); Monocytes Percent Auto 6.7 % (2.6-8.5); Neutrophils Absolute Auto 4.9 K/mm3 (1.3-6.7); Platelet Count Result 227 k/mm3 (150-375); Red Blood Count 4.95 M/mm3 (4.6-6.20); Red Cell Distribution Width 13.2 % (11.5-14.5); White Blood Count 8.1 K/mm3 (4.5-10.0)
[2022-01-23 08:13] LABS: Add Urine Microscopic? YES; Appearance Urine Clear (Clear); Bilirubin Urine Negative (Negative); Blood Urine 1+ (Negative); Color Urine Yellow (Yellow); Glucose Urine UA Negative (Negative); Ketones Urine Negative (Negative); Leukocyte Esterase Ur Negative LEU/UL (Negative); Mucus Urine Rare /lpf; Nitrate Urine Negative (Negative); Protein Urine Negative (Negative); Specific Grav Ur 1.023 (1.001-1.035); Urobilinogen Urine Negative mg/dL (<2.0); WBC Urine 0-3 /hpf
[2022-01-23 08:22] LABS: Alanine Aminotransferase 25 U/L (6-50); Albumin Level 4.4 g/dL (3.5-5.1); Alkaline Phosphatase 81 U/L (38-126); Anion Gap 7 mmol/L (8-16); Aspartate Amino Transferase 21 U/L (17-59); Bilirubin,Total 0.5 mg/dL (0.2-1.3); Blood Urea Nitrogen 16 mg/dL (9-20); Calcium 8.9 mg/dL (8.4-10.2); Carbon Dioxide 28 mmol/L (22-30); Chloride 102 mmol/L (98-107); Estimated CRCL calculation 155 ml/min; Estimated Glomerular Filt Rate > 60; Glucose 120 mg/dL (65-110); Lipase 46 U/L (23-300); Potassium 4.2 mmol/L (3.4-5.0); Sodium 137 mmol/L (137-145)
[2022-01-23 10:01] VITALS: BP 130/82; PULSE 82; RESP 18; O2SAT 99
== END 2022-01-23 10:02 | disposition home or self-care (01) ==
PROVIDERS: Emergency Provider Emergency Medicine; PCP Internal Medicine
DX: M54.50 Low back pain, unspecified (principal); F17.210 Nicotine dependence, cigarettes, uncomplicated
CPT/HCPCS: 36415; 74177; 80053; 81001; 83690; 85025; 99284; Q9967

== ENCOUNTER 2022-05-04 16:12 | Emergency (ER) | payer BC, SELFPAY ==
--- NOTE | 2022-05-04 16:15 | ED.ABDPAIN ---
HPI - Abdominal Pain General Chief Complaint: Abdominal Pain Stated Complaint: rt side/abdominal pain Time Seen by Provider: 05/04/22 16:14 Source: patient Mode of arrival: ambulatory Limitations: no limitations History of Present Illness HPI narrative: Kings is a 46-year-old male patient presenting to the clinic today with complaints of right-sided abdomen discomfort. He reports the pain is sharp at times and worse with walking. Denies any known injury. Reports the symptoms started last night. He denies any fever, chills, nausea, vomiting, diarrhea. Last bowel movement was prior to arrival and was normal for the patient. States he has not been passing gas. Reports the pain does come and go-denies any back or flank pain. History of kidney stones in the past Related Data Allergies Allergy/AdvReac Type Severity Reaction Status Date / Time ibuprofen AdvReac Severe Unknown Verified 05/04/22 16:16 Review of Systems Review of Systems: Pertinent positives per HPI. Patient denies any fever, chills, rash, headache, visual changes, dizziness, cough, runny nose, sore throat, shortness of breath, chest pain, palpitations, nausea, vomiting, diarrhea, constipation, or any urinary issues. [facility] Past Medical History Medical History Cellulitis of lower leg Left Chest pain Cholecystectomy planned 2018 Mild acid reflux Recurrent tinea pedis Smoker Surgical History Surgical History History of cholecystectomy Family History Family History Father Family history of thyroid disease Diabetes mellitus Hypertension Family history of hypothyroidism Mother Hypertension Other Cerebrovascular accident Family history of arthritis Family history of kidney disease Social History Social History 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 -WEEKENDS Smoking packs per day: 1 Smoking cigarettes per day: 20.0 Years smoked: 24 Smoking pack-years: 24.00 Smoking status: Current every day smoker Tobacco type: cigarettes Alcohol intake: never Lack of Transportation: No Lack of Food: Never True Current Housing: I Have Housing Concerned About Future Housing: No Difficulty Paying Gas/Electric Bills: No Difficulty Paying for Meds: No Gender identity (if verbalized by the patient): Male Comments At the time of my signature, I reviewed and agree with the nursing past medical, surgical, social, and family history. There is no relevant family history pertinent to the patient complaint. Exam Narrative: General: Well-developed, well nourished, in no apparent distress. Head: Normocephalic, atraumatic. Cardio: Regular rate and rhythm, s1 and s2 normal, no murmur appreciated. Resp: Clear to auscultation bilaterally, no rhonchi, rales, wheezing or rubs. Abdomen: Soft, pliable, bowel sounds present in all quadrants,tender to palpation over the right lateral abdomen, no organomegly, no CVAT tenderness. Course Course Emergency Course: Portions of this record may have been created with voice recognition software. Level of Care: Express Care Visit Vital Signs Vital signs: Vital Signs Temperature 36.9 C 05/04/22 16:19 Pulse Rate 72 05/04/22 16:19 Respiratory Rate 16 05/04/22 16:19 Blood Pressure 151/91 H 05/04/22 16:19 Pulse Oximetry 100 05/04/22 16:19 Oxygen Delivery Room Air 05/04/22 16:19 Temperature 36.9 C 05/04/22 16:21 Pulse Rate 72 05/04/22 16:21 Respiratory Rate 16 05/04/22 16:21 Blood Pressure 151/91 H 05/04/22 16:21 Pulse Oximetry 100 05/04/22 16:21 Oxygen Delivery Room Air 05/04/22 16:21 Vital signs reviewed Transfer Transfered to: Mobile Transportation: Other (Private car) Transfer rationale: Hematuria and right-sided abdominal pain rule out kidney stone Accepting physic
[2022-05-04 16:19] VITALS: BP 151/91; PULSE 72; RESP 16; TEMP 36.9; O2SAT 100
[2022-05-04 16:21] VITALS: BP 151/91; PULSE 72; RESP 16; TEMP 36.9; O2SAT 100
== END 2022-05-04 16:43 | disposition short-term general hospital (02) ==
LOC: EXPGOSH 16:14
PROVIDERS: Emergency Provider Nurse Practitioner Family; PCP Internal Medicine
DX: R31.9 Hematuria, unspecified (principal); R10.9 Unspecified abdominal pain; Z87.442 Personal history of urinary calculi; F17.210 Nicotine dependence, cigarettes, uncomplicated; K21.9 Gastro-esophageal reflux disease without esophagitis
CPT/HCPCS: 81003; 99212; G0463

== ENCOUNTER 2022-05-04 17:04 | Emergency (ER) | payer BC, SELFPAY ==
--- NOTE | ~2022-05-04 | CT_ITS ---
EXAMINATION: CT abdomen pelvis wo con DATE: 05/04/2022 21:18 INDICATION: Flank pain TECHNIQUE: Computed tomography (CT) of the abdomen and pelvis was performed without intravenous contr ast. Automated exposure control and iterative reconstruction technique were employed. The dose-length product was 753.12 mGy-cm. COMPARISON: 01/15/2022 FINDINGS: Lung bases are clear. Heart size is normal. No pericardial or pleural effusion. Cholecystectomy clips the gallbladder fossa. Liver, spleen, pancreas and bilateral adrenal glands are normal. Kidneys and ureters are normal with no urolithiasis, hydroureteronephrosis or perinephric/ureteral stranding. Pro state and the decompressed bladder are unremarkable. A couple unchanged small phleboliths in both the left and right hemipelvis. The bowels including the appendix are normal. Chronic mild anterior wedgi ng at T10-L1 with several Schmorl's nodes in the lower thoracic and upper lumbar spine. IMPRESSION: 1. No urolithiasis or acute intra-abdominal/pelvic process. Reviewed, dictated and finalized at location A. MECHANIC
[2022-05-04 17:11] VITALS: BP 140/78; PULSE 68; RESP 16; TEMP 36.7; O2SAT 100
[2022-05-04 21:11] LABS: Basophils Absolute Auto 0.1 K/mm3 (0.0-0.1); Basophils Percent Auto 0.7 % (0.2-1.2); Eosinophils Absolute Auto 0.3 K/mm3 (0-0.3); Eosinophils Percent Auto 2.7 % (0-4.4); Hematocrit 44.4 % (42.0-52.0); Hemoglobin 15.4 g/dL (14.0-18.0); Immature Granulocyte Absolute 0.03 K/mm3 (0.00-0.031); Immature Granulocyte Percent A 0.3 % (0-0.5); Lymphocytes Absolute Auto 3.52 K/mm3 (0.9-3.2); Lymphocytes Percent Auto 31.7 % (18.3-44.2); Mean Corpuscular HGB Conc 34.7 g/dl (32-36); Mean Corpuscular Hemoglobin 31.1 pg (26-34); Mean Corpuscular Volume 89.7 fl (80-100); Mean Platelet Volume 9.4 fl (7.4-10.4); Monocytes Absolute Auto 0.9 K/mm3 (0.1-0.6); Monocytes Percent Auto 7.7 % (2.6-8.5); Neutrophils Absolute Auto 6.3 K/mm3 (1.3-6.7); Neutrophils Percent Auto 56.9 % (45.5-73.1); Platelet Count Result 223 k/mm3 (150-375); Red Blood Count 4.95 M/mm3 (4.6-6.20); Red Cell Distribution Width 12.7 % (11.5-14.5); White Blood Count 11.1 K/mm3 (4.5-10.0)
--- NOTE | 2022-05-04 21:12 | ED.GENADULT ---
HPI - General Adult General Chief complaint: Back Pain/Injury Stated complaint: R flank pain Time Seen by Provider: 05/04/22 21:07 Source: RN notes reviewed History of Present Illness HPI narrative: Patient presents emergency room from home for right-sided flank and abdomen pain. Patient states his symptoms began last night. Noted pain over the right lateral flank radiating to the right side of the abdomen described as aching in nature. States he took a Tylenol for the symptoms last night with no relief states he woke this morning with continued pain that worsened throughout the day denies any fevers or chills chest pain shortness of breath nausea vomiting diarrhea or any other symptoms has not taken any pain medication since last night states that he does have a history of previous kidney stones patient states the pain does worsen with walking Related Data Allergies Allergy/AdvReac Type Severity Reaction Status Date / Time ibuprofen AdvReac Severe Unknown Verified 05/04/22 16:16 Review of Systems Review of Systems: Gen.: Denies fevers or chills ENT: Denies congestion Respiratory: Denies shortness of breath or cough CV: Denies chest pain or palpitations GI: See HPI Musculoskeletal: Denies back pain or muscle pain Neuro: Denies numbness, tingling, weakness or focal weakness Skin: Denies rash Except as documented, all other systems reviewed and negative PMFSH Past Medical History Medical History Cellulitis of lower leg Left Chest pain Cholecystectomy planned 2017 Mild acid reflux Recurrent tinea pedis Smoker Surgical History Surgical History History of cholecystectomy Family History Family History Father Family history of thyroid disease Diabetes mellitus Hypertension Family history of hypothyroidism Mother Hypertension Other Cerebrovascular accident Family history of arthritis Family history of kidney disease Social History Social History 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 -WEEKENDS Smoking packs per day: 1 Smoking cigarettes per day: 20.0 Years smoked: 24 Smoking pack-years: 24.00 Smoking status: Current every day smoker Tobacco type: cigarettes Alcohol intake: never Lack of Transportation: No Lack of Food: Never True Current Housing: I Have Housing Concerned About Future Housing: No Difficulty Paying Gas/Electric Bills: No Difficulty Paying for Meds: No Gender identity (if verbalized by the patient): Male Exam Narrative: APPEARANCE: No acute distress, nontoxic, resting in bed EYES: EOMI HEENT: Normocephalic, atraumatic, OMM RESPIRATORY: No respiratory distress Clear to auscultation bilaterally with no rhonchi wheezing or rales. CARDIOVASCULAR: Regular rate and rhythm without murmurs rubs or gallops. ABDOMINAL: Soft, nontender, nondistended, no rebound or guarding right flank tenderness MUSCULOSKELETAl: Moves all extremities. No clubbing, cyanosis or edema. Back: No midline thoracic or lumbar spine tenderness palpation NEURO: Awake and alert. Following commands, speech normal, no focal deficits SKIN:: Warm, dry. No rashes lesions or abrasions PSYCHIATRIC: Normal affect/mood, Course Course Emergency Course: Discussed with patient results of workup and diagnosis. Discussed need for follow-up with primary care, proper use of medication, and reasons to return to the emergency department. Patient understands and agrees to current treatment plan Vital Signs Vital signs: Vital Signs Temperature 98.1 F 05/04/22 17:11 Pulse Rate 68 05/04/22 17:11 Respiratory Rate 16 05/04/22 17:11 Blood Pressure 140/78 05/04/22 17:11 Pulse Oximetry 100 05/04/22 17:11 Oxygen Delivery Room Air 05/04/22 17:11 Temperature 98.1 F 05/04/22 17:11 Pulse Rate 65 05/04/22 21:44 Respi
[2022-05-04 21:19] LABS: Alanine Aminotransferase 32 U/L (6-50); Albumin Level 4.5 g/dL (3.5-5.1); Alkaline Phosphatase 79 U/L (38-126); Anion Gap 5 mmol/L (8-16); Aspartate Amino Transferase 31 U/L (17-59); Bilirubin,Total 0.7 mg/dL (0.2-1.3); Blood Urea Nitrogen 18 mg/dL (9-20); Calcium 8.7 mg/dL (8.4-10.2); Carbon Dioxide 27 mmol/L (22-30); Chloride 102 mmol/L (98-107); Estimated CRCL calculation 179 ml/min; Estimated Glomerular Filt Rate > 60; Glucose 94 mg/dL (65-110); Potassium 3.6 mmol/L (3.4-5.0); Sodium 134 mmol/L (137-145)
[2022-05-04 21:23] LABS: Appearance Urine Slightly Cloudy (Clear); Bilirubin Urine Negative (Negative); Blood Urine Trace-intact (Negative); Color Urine Yellow (Yellow); Glucose Urine UA Negative (Negative); Ketones Urine Negative (Negative); Leukocyte Esterase Ur Negative LEU/UL (Negative); Nitrate Urine Negative (Negative); Protein Urine Negative (Negative); Specific Grav Ur >= 1.030 (1.001-1.035); Urobilinogen Urine 0.2 mg/dL (<2.0); pH Urine 6.5 (5.0-9.0)
[2022-05-04 21:28] LABS: Add Urine Microscopic? YES; Mucus Urine Few /lpf; RBC Urine 21-50 /hpf (0-2); Squamous Epithelial Cell Urine Rare /hpf (Few); WBC Urine 0-3 /hpf
[2022-05-04 21:44] VITALS: BP 122/85; PULSE 65; RESP 18; O2SAT 96
[2022-05-04 22:03] LABS: Lipase 44 U/L (23-300)
[2022-05-04] MEDS: ACETAMINOPHEN 500 MG TABLET 1000 MG PO (22:05)
== END 2022-05-04 22:10 | disposition home or self-care (01) ==
PROVIDERS: Emergency Medicine; Emergency Provider Emergency Medicine; PCP Internal Medicine
DX: R10.9 Unspecified abdominal pain (principal); K21.9 Gastro-esophageal reflux disease without esophagitis; F17.210 Nicotine dependence, cigarettes, uncomplicated
CPT/HCPCS: 36415; 74176; 80053; 81001; 81003; 83690; 85025; 99284; A9270

== ENCOUNTER 2022-05-27 18:38 | Emergency (ER) | payer BC, SELFPAY ==
--- NOTE | ~2022-05-27 | CT_ITS ---
Clinical Indication: Shortness of breath CT Scan of the Chest with Contrast: Technique: Contiguous sections were acquired throughout the chest after intravenous administration of 100 cc of Omnipaque 350. Dose reduction technique was used on this scan by utilizing automated expos ure control and iterative reconstruction technique. The dose-length product (DLP) was 776.48 mGy-cm. Findings: There is no evidence of any significant mediastinal, hilar or axillary lymphadenopathy. There is no f illing defect in the pulmonary arterial tree to suggest pulmonary embolus. There is no evidence of ao rtic dissection or aneurysm. There is no evidence of pleural or pericardial effusion. The lungs are clear. No pulmonary nodules or infiltrates are noted. Images through the upper abdomen reveal no abnormalities. Impression: No evidence of pulmonary embolus, aortic dissection, or aortic aneurysm. Clear lungs. Reviewed, dictated and finalized at [facility]. STORE ASSOCIATE Impression: No evidence of pulmonary embolus, aortic dissection, or aortic aneurysm. Clear lungs.
--- NOTE | ~2022-05-27 | XR_ITS ---
EXAMINATION: XR chest 2V DATE: 05/27/2022 20:15 INDICATION: Shortness of breath TECHNIQUE: PA and lateral views of the chest are obtained. COMPARISON: 01/11/2022 FINDINGS: The lungs are free of acute opacities. No pleural effusion or pneumothorax. The cardiomedia stinal silhouette is normal. The visualized bones and soft tissues are unremarkable. IMPRESSION: 1. No acute cardiopulmonary abnormality. Reviewed, dictated and finalized at location F. ORT ASSOCIATE
[2022-05-27 19:45] VITALS: BP 144/91; PULSE 64; RESP 18; TEMP 36.7; O2SAT 100
--- NOTE | 2022-05-27 19:48 | ECG_ITS ---
Measurements Intervals [place] Rate: 67 P: 31 W[place]: 173 QRS: 51 QRSD: 93 T: 48 QT: 370 QTc: 391 Interpretive Statements SINUS RHYTHM INCOMPLETE RIGHT BUNDLE BRANCH BLOCK BASELINE ARTIFACT- I, III BORDERLINE ECG COMPARED TO ECG 01/11/2022 09:46:10 NO SIGNIFICANT CHANGES Electronically Signed On 05-28-2022 6:31:02 [employer] by Blaise Bowman D.O.
[2022-05-27 20:44] LABS: Basophils Absolute Auto 0.1 K/mm3 (0.0-0.1); Basophils Percent Auto 0.9 % (0.2-1.2); Eosinophils Absolute Auto 0.3 K/mm3 (0-0.3); Eosinophils Percent Auto 2.5 % (0-4.4); Hematocrit 44.2 % (42.0-52.0); Hemoglobin 15.1 g/dL (14.0-18.0); Immature Granulocyte Absolute 0.02 K/mm3 (0.00-0.031); Immature Granulocyte Percent A 0.2 % (0-0.5); Lymphocytes Absolute Auto 3.53 K/mm3 (0.9-3.2); Lymphocytes Percent Auto 32.2 % (18.3-44.2); Mean Corpuscular HGB Conc 34.2 g/dl (32-36); Mean Corpuscular Hemoglobin 31.1 pg (26-34); Mean Corpuscular Volume 91.1 fl (80-100); Mean Platelet Volume 9.5 fl (7.4-10.4); Monocytes Absolute Auto 0.9 K/mm3 (0.1-0.6); Monocytes Percent Auto 7.9 % (2.6-8.5); Neutrophils Absolute Auto 6.2 K/mm3 (1.3-6.7); Neutrophils Percent Auto 56.3 % (45.5-73.1); Platelet Count Result 235 k/mm3 (150-375); Red Blood Count 4.85 M/mm3 (4.6-6.20); Red Cell Distribution Width 12.7 % (11.5-14.5)
[2022-05-27 20:54] LABS: Alanine Aminotransferase 26 U/L (6-50); Albumin Level 4.3 g/dL (3.5-5.1); Alkaline Phosphatase 76 U/L (38-126); Anion Gap 6 mmol/L (8-16); Aspartate Amino Transferase 24 U/L (17-59); Bilirubin,Total 0.6 mg/dL (0.2-1.3); Blood Urea Nitrogen 16 mg/dL (9-20); Calcium 8.7 mg/dL (8.4-10.2); Carbon Dioxide 28 mmol/L (22-30); Chloride 103 mmol/L (98-107); Estimated CRCL calculation 161 ml/min; Estimated Glomerular Filt Rate > 60; Glucose 98 mg/dL (65-110); Potassium 3.7 mmol/L (3.4-5.0); Sodium 137 mmol/L (137-145)
[2022-05-28] VITALS (21 sets, daily range): BP systolic 120–131; BP diastolic 80–85; PULSE 55–82; RESP 12–27; TEMP 36.6; O2SAT 95–99
--- NOTE | 2022-05-28 02:12 | ED.SOB ---
HPI - SOB/Dyspnea General Chief Complaint: Shortness of Breath/Dyspnea Stated Complaint: SOB Time Seen by Provider: 05/28/22 02:11 History of Present Illness HPI Narrative: Patient is a 46-year-old male here for evaluation of shortness of breath this morning. Patient states that he felt like he was having a hard time getting a deep satisfying breath this morning. He states that this came on randomly and resolved without intervention. States that he currently feels fine and is not short of breath. No chest pain, leg swelling, fevers or chills, cough, nausea, vomiting or diarrhea. Of note patient has had over numerous ED visits in the past 6 months for chest pain and shortness of breath that have all been attributed to anxiety, he had a negative stress test with Dr. Bowman recently. Related Data Allergies Allergy/AdvReac Type Severity Reaction Status Date / Time ibuprofen AdvReac Severe Unknown Verified 05/27/22 19:45 Review of Systems Review of Systems: Gen: Denies fevers or chills Eyes: Denies eye pain or visual change ENT: Denies congestion Respiratory: Reports shortness of breath CV: Denies chest pain or palpitations GI: Denies abdominal pain nausea, emesis or diarrhea : denies burning, urgency, frequency or hematuria Musculoskeletal: Denies back pain or muscle pain Neuro: Denies numbness, tingling, weakness or focal weakness Skin: Denies rash Except as documented, all other systems reviewed and negative [facility] Past Medical History Medical History Cellulitis of lower leg Left Chest pain Cholecystectomy planned 2017 Mild acid reflux Recurrent tinea pedis Smoker Surgical History Surgical History History of cholecystectomy Family History Family History Father Family history of thyroid disease Diabetes mellitus Hypertension Family history of hypothyroidism Mother Hypertension Other Cerebrovascular accident Family history of arthritis Family history of kidney disease Social History Social History 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 -WEEKENDS Smoking packs per day: 1 Smoking cigarettes per day: 20.0 Years smoked: 24 Smoking pack-years: 24.00 Smoking status: Current every day smoker Tobacco type: cigarettes Alcohol intake: never Lack of Transportation: No Lack of Food: Never True Current Housing: I Have Housing Concerned About Future Housing: No Difficulty Paying Gas/Electric Bills: No Difficulty Paying for Meds: No Gender identity (if verbalized by the patient): Male Exam Narrative: APPEARANCE: Well appearing, no pain in distress, well-nourished. Head: Normocephalic and atraumatic. EYES: PERRLA/EOMI, conjunctivae clear NOSE: No nasal drainage EARS: External ear normal in appearance THROAT: Oropharynx is clear. Mucous membranes are moist. NECK: Supple. No adenopathy, no masses. RESPIRATORY: Airway patent, respirations nonlabored. Clear to auscultation bilaterally, no rales, rhonchi, wheezing. CARDIOVASCULAR: Regular rate and rhythm without murmurs, rubs, or gallops. ABDOMINAL: Normoactive bowel sounds. Soft, nontender, nondistended. No rebound tenderness or guarding. MUSCULOSKELETAL: Extremities are warm and well-perfused. Moves all extremities well. No edema. NEURO: Normal speech. No focal neurologic deficits. SKIN: Skin is warm and dry. No rashes. PSYCHIATRIC: Normal affect/mood.. Course Vital Signs Vital signs: Vital Signs Temperature 98.1 F 05/27/22 19:45 Pulse Rate 64 05/27/22 19:45 Respiratory Rate 18 05/27/22 19:45 Blood Pressure 144/91 H 05/27/22 19:45 Pulse Oximetry 100 05/27/22 19:45 Temperature 98 F 05/28/22 05:11 Pulse Rate 58 L 05/28/22 05:00 Respiratory Rate 16 05/28/22 05:00 Blood Pressure 131/85 05/28/22 02:31 Pulse Oximetry 96
[2022-05-28 03:14] LABS: Prothrombin Time 12.6 Seconds (11.1-14.7)
[2022-05-28 03:15] LABS: Partial Thromboplastin Time 31.7 SECONDS (22.3-36.8)
[2022-05-28 03:21] LABS: D Dimer 0.56 ug/mL (<0.48)
[2022-05-28 03:29] LABS: Troponin I < 0.012 ng/mL (0.000-0.034)
== END 2022-05-28 05:15 | disposition home or self-care (01) ==
PROVIDERS: Emergency Medicine; Emergency Provider Physician Assistant; PCP Internal Medicine
DX: F41.9 Anxiety disorder, unspecified (principal); R06.02 Shortness of breath; K21.9 Gastro-esophageal reflux disease without esophagitis; F17.210 Nicotine dependence, cigarettes, uncomplicated
CPT/HCPCS: 36415; 71046; 71275; 80053; 84484; 85025; 85380; 85610; 85730; 93005; 99284; Q9967

== ENCOUNTER 2022-06-06 11:45 | Emergency (ER) | payer BC, SELFPAY ==
[2022-06-06 11:53] VITALS: BP 138/76; PULSE 84; RESP 16; TEMP 38.8; O2SAT 99
[2022-06-06] MEDS: ACETAMINOPHEN 500 MG TABLET 1000 MG PO (12:32)
--- NOTE | 2022-06-06 12:58 | ED.URI ---
HPI - URI/Sore Throat General Chief Complaint: Upper Respiratory Infection Stated Complaint: body aches/ear pain Time Seen by Provider: 06/06/22 12:15 Source: patient Mode of arrival: ambulatory Limitations: no limitations History of Present Illness HPI Narrative: 46-year-old male presents with complaint of fever, headache, body aches, chills, fatigue, sore throat, cough and congestion starting this morning. Reports COVID exposure at work from his co-worker. patient is unvaccinated. Not wearing his mask. Denies chest pain and shortness of breath. No nausea vomiting diarrhea. All systems reviewed and negative except as noted above. Related Data Allergies Allergy/AdvReac Type Severity Reaction Status Date / Time ibuprofen AdvReac Severe Unknown Verified 06/06/22 11:58 Review of Systems Review of Systems: CONSTITUTIONAL: Denies fever, chills, or sweats. EYES: Denies visual changes, redness, or discharge. ENT: reports rhinorrhea, congestion, sore throat. Denies otalgia. CARDIOVASCULAR: Denies chest pain, palpitations, or edema. RESPIRATORY: Reports cough. Deniesdyspnea. GASTROINTESTINAL: Denies abdominal pain, nausea, vomiting, or diarrhea. GENITOURINARY: Denies dysuria or hematuria. SKIN: Denies rash or itching. MUSCULOSKELETAL: Denies back pain, joint pain, or myalgia. NEUROLOGIC: Denies headache, numbness, or weakness. PSYCHIATRIC: Denies anxiety or depression. All other systems reviewed are negative, except as documented in HPI. [facility] Past Medical History Medical History Cellulitis of lower leg Left Chest pain Cholecystectomy planned 2018 Mild acid reflux Recurrent tinea pedis Smoker Surgical History Surgical History History of cholecystectomy Family History Family History Father Family history of thyroid disease Diabetes mellitus Hypertension Family history of hypothyroidism Mother Hypertension Other Cerebrovascular accident Family history of arthritis Family history of kidney disease Social History Social History 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 -WEEKENDS Smoking packs per day: 1 Smoking cigarettes per day: 20.0 Years smoked: 24 Smoking pack-years: 24.00 Smoking status: Current every day smoker Tobacco type: cigarettes Alcohol intake: never Lack of Transportation: No Lack of Food: Never True Current Housing: I Have Housing Concerned About Future Housing: No Difficulty Paying Gas/Electric Bills: No Difficulty Paying for Meds: No Gender identity (if verbalized by the patient): Male Comments At time of signature, agree with nursing past medical, surgical, social and family history. There is no relevant family history pertinent to the presenting complaint. Exam Narrative: GENERAL: This is a well-nourished, well-developed patient. Patient ill-appearing but no distress. HEAD: normocephalic, atraumatic. EYES: PERRL. Sclera clear/white. Vision is grossly intact. EARS: External ears normal, auditory canals clear and without drainage, TMs normal without perforation. Hearing grossly intact. NOSE: External nose normal with Clear nasal drainage, mild congestion, erythema to both nares. THROAT: Mucous membranes moist, Erythematous NECK: Neck supple, non-tender without lymphadenopathy, masses or thyromegaly. CARDIOVASCULAR: Regular rate and rhythm without murmurs, gallops, or rubs. RESPIRATORY: Clear to auscultation. Breath sounds equal bilaterally. No wheezes, rales, or rhonchi. SKIN: warm, Dry, intact with no suspicious lesions or rash, good texture and turgor. NEURO: awake, alert, and oriented to person, place and time. There were no obvious focal neurologic abnormalities. EXTREMITIES: No joint tenderness, effusion, or edema noted. Course Course Level of Care: Express Care Visit
== END 2022-06-06 12:37 | disposition home or self-care (01) ==
PROVIDERS: Emergency Provider Nurse Practitioner Family; PCP Internal Medicine
DX: U07.1 COVID-19 (principal); K21.9 Gastro-esophageal reflux disease without esophagitis; F17.210 Nicotine dependence, cigarettes, uncomplicated
CPT/HCPCS: 87081; 87426; 87804; 87880; 99213; A9270; C9803; G0463

== ENCOUNTER 2022-07-20 09:44 | Emergency (ER) | payer BC, SELFPAY ==
[2022-07-20 09:55] VITALS: BP 153/97; PULSE 62; RESP 18; TEMP 36.8; O2SAT 100
--- NOTE | 2022-07-20 09:58 | ED.URI ---
HPI - URI/Sore Throat General Chief Complaint: Upper Respiratory Infection Stated Complaint: Sinus/Sore Throat Time Seen by Provider: 07/20/22 09:58 Source: patient Mode of arrival: ambulatory Limitations: no limitations History of Present Illness HPI Narrative: 47-year-old male presents with complaint of nasal congestion, sore throat, chills starting yesterday. Afebrile. No cough. Denies nausea vomiting diarrhea. No known sick contacts. Does need a work note. All systems reviewed and negative except as noted above. Related Data Home Medications Medication Instructions Recorded Confirmed cyclobenzaprine 10 mg tablet 10 mg PO BID PRN Pain 07/20/22 07/20/22 Allergies Allergy/AdvReac Type Severity Reaction Status Date / Time ibuprofen AdvReac Severe Unknown Verified 07/20/22 10:03 Review of Systems Review of Systems: CONSTITUTIONAL: Denies fever, chills, or sweats. EYES: Denies visual changes, redness, or discharge. ENT: Reports rhinorrhea, congestion, sore throat. Denies otalgia. CARDIOVASCULAR: Denies chest pain, palpitations, or edema. RESPIRATORY: Denies cough or dyspnea. GASTROINTESTINAL: Denies abdominal pain, nausea, vomiting, or diarrhea. GENITOURINARY: Denies dysuria or hematuria. SKIN: Denies rash or itching. MUSCULOSKELETAL: Denies back pain, joint pain, or myalgia. NEUROLOGIC: Denies headache, numbness, or weakness. PSYCHIATRIC: Denies anxiety or depression. All other systems reviewed are negative, except as documented in HPI. [facility] Past Medical History Medical History Cellulitis of lower leg Left Chest pain Cholecystectomy planned 2018 Mild acid reflux Recurrent tinea pedis Smoker Surgical History Surgical History History of cholecystectomy Family History Family History Father Family history of thyroid disease Diabetes mellitus Hypertension Family history of hypothyroidism Mother Hypertension Other Cerebrovascular accident Family history of arthritis Family history of kidney disease Social History Social History (Updated 07/15/22 @ 14:51 by Surendra Wu MA) 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 -WEEKENDS Smoking packs per day: 1 Smoking cigarettes per day: 20.0 Years smoked: 24 Smoking pack-years: 24.00 Smoking status: Current every day smoker Tobacco type: cigarettes Alcohol intake: never Lack of Transportation: No Lack of Food: Never True Current Housing: I Have Housing Concerned About Future Housing: No Difficulty Paying Gas/Electric Bills: No Difficulty Paying for Meds: No Currently Unemployed: No Education: High School Diploma/GED Difficulty w/ Childcare or Family Care: No Gender identity (if verbalized by the patient): Male Comments At time of signature, agree with nursing past medical, surgical, social and family history. There is no relevant family history pertinent to the presenting complaint. Exam Narrative: GENERAL: This is a well-nourished, well-developed patient, in no apparent distress. HEAD: normocephalic, atraumatic. EYES: PERRL. Sclera clear/white. Vision is grossly intact. EARS: External ears normal, auditory canals clear and without drainage, TMs normal without perforation. Hearing grossly intact. NOSE: External nose normal with clear nasal drainage with mild erythema to nares. THROAT: Mucous membranes moist, posterior pharynx clear. NECK: Neck supple, non-tender without lymphadenopathy, masses or thyromegaly. CARDIOVASCULAR: Regular rate and rhythm without murmurs, gallops, or rubs. RESPIRATORY: Clear to auscultation. Breath sounds equal bilaterally. No wheezes, rales, or rhonchi. SKIN: warm, Dry, intact with no suspicious lesions or rash, good texture and turgor. NEURO: awake, alert, and oriented to person, place and time. There were no obvious focal neurologic abnormalities
== END 2022-07-20 10:23 | disposition home or self-care (01) ==
PROVIDERS: Emergency Provider Nurse Practitioner Family; PCP Internal Medicine
DX: J06.9 Acute upper respiratory infection, unspecified (principal); Z20.822 Contact with and (suspected) exposure to COVID-19; F17.210 Nicotine dependence, cigarettes, uncomplicated; K21.9 Gastro-esophageal reflux disease without esophagitis
CPT/HCPCS: 87081; 87426; 87880; 99213; C9803; G0463

== ENCOUNTER 2022-08-03 01:21 | Day surgery (SDC) | payer BC, SELFPAY ==
[2022-07-21 14:57] VITALS: BMI 41.5
[2022-08-03 07:52] VITALS: BP 129/83; PULSE 65; RESP 18; TEMP 36.3; O2SAT 100; BMI 40.7
[2022-08-03] MEDS: LACTATED RINGERS 1,000 ML 150 ML IV CONT (08:06)
--- NOTE | 2022-08-03 08:06 | PM.HPGS ---
History of Present Illness History of Present Illness Consent: Risks, benefits, and alternatives have been discussed and questions answered. Patient agrees to proceed with procedure. Chief complaint: GERD, neoplasm screening Narrative: Onel Conway is a 47 year old male Presents for both colonoscopy and EGD. Patient desires neoplasia screening. His he states his weight appetite bowel movements are normal. He denies abdominal pain. He has had no bleeding. Patient gives a long history of acid reflux for many years. Currently controlled with famotidine twice a day. He only recently began to take this twice a day. Because of ongoing acid reflux EGD is requested. Patient denies any dysphagia. He has no bleeding or weight loss. Review of Systems Review of Systems: Review of systems noncontributory. 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 Smoking packs per day: 1 Smoking cigarettes per day: 20.0 Years smoked: 24 Smoking pack-years: 24.00 Smoking status: Former smoker Tobacco type: cigarettes Alcohol intake: never Substance use type: does not use Lack of Transportation: No Lack of Food: Never True Current Housing: I Have Housing Concerned About Future Housing: No Difficulty Paying Gas/Electric Bills: No Difficulty Paying for Meds: No Currently Unemployed: No Education: High School Diploma/GED Difficulty w/ Childcare or Family Care: No Living arrangements: with family Gender identity (if verbalized by the patient): Male Spiritual care concerns: No Meds Home Medications and Allergies Home Medications Medication Instructions Recorded Confirmed Type sertraline 25 mg tablet 25 mg PO DAILY #30 tabs 05/18/22 08/03/22 Rx alprazolam 0.25 mg tablet (Xanax) 0.25 mg PO DAILY PRN anxiety #20 06/04/22 08/03/22 Rx tabs famotidine 20 mg tablet 20 mg PO DAILY #90 tabs 06/05/22 08/03/22 Rx cyclobenzaprine 10 mg tablet 10 mg PO BID PRN Pain 07/20/22 08/03/22 History acetaminophen 325 mg tablet 650 mg PO Q6H PRN Pain 07/21/22 08/03/22 History Allergies Allergy/AdvReac Type Severity Reaction Status Date / Time ibuprofen AdvReac Severe Unknown Verified 08/03/22 07:51 Vital Signs Vital Signs - 24 hr 08/03/22 07:52 Temperature 97.3 F L Pulse Rate 65 Respiratory Rate 18 Blood Pressure 129/83 Pulse Oximetry 100 Oxygen Delivery Room Air Exam Narrative: Physical exam reveals patient to be alert. Vital signs stable. HEENT exam is unremarkable. Patient is anicteric. Lungs are clear to auscultation and percussion. Heart is without murmur or extra sounds. Abdomen bowel sounds present soft nontender with no organomegaly. Digital external rectal exam is normal. Assessment and Plan Assessment and plan (1) Screening for colon cancer: Code(s): Z12.11 - Encounter for screening for malignant neoplasm of colon Status: Acute Assessment and Plan: Patient presents for screening colonoscopy. He appears to be at average risk for colon polyps. (2) Chronic GERD: Code(s): K21.9 - Gastro-esophageal reflux disease without esophagitis Status: Acute Assessment and Plan: Patient with chronic heartburn and acid reflux. Currently w
--- NOTE | 2022-08-03 08:20 | WPDANESEPPF ---
Anes - Initial Pre Proc Eval Procedure: Operation Date: 08/03/22 09:00 Proposed Procedures p Esophagogastroduodenoscopy & Screening Colonoscopy - Paul Toth MD Date/Time: 08/03/22 08:20 Surgeon: Pual Toth MD Pre Op Diagnosis: GERD, neoplasm screening Patient Data Age: 47 Gender: M Height: 1.8 m Weight: 132.6 kg Last Vital Signs Temp 97.3 F L 08/03/22 07:52 Pulse 65 08/03/22 07:52 Resp 18 08/03/22 07:52 BP 129/83 08/03/22 07:52 Pulse Ox 100 08/03/22 07:52 O2 Del Method Room Air 08/03/22 07:52 Allergies Allergy/AdvReac Type Severity Reaction Status Date / Time ibuprofen AdvReac Severe Unknown Verified 08/03/22 07:51 Home Medications Medication Instructions Recorded Confirmed Type sertraline 25 mg tablet 25 mg PO DAILY #30 tabs 05/18/22 08/03/22 Rx alprazolam 0.25 mg tablet (Xanax) 0.25 mg PO DAILY PRN anxiety #20 06/04/22 08/03/22 Rx tabs famotidine 20 mg tablet 20 mg PO DAILY #90 tabs 06/05/22 08/03/22 Rx cyclobenzaprine 10 mg tablet 10 mg PO BID PRN Pain 07/20/22 08/03/22 History acetaminophen 325 mg tablet 650 mg PO Q6H PRN Pain 07/21/22 08/03/22 History Patient hx anesthesia problems: none Family hx anesthesia problems: none Results Review: All pre-operative results and documents have been reviewed as part of the pre-operative evaluation. REPLACED BY [facility] Past Medical History Medical History Cellulitis of lower leg Left Chest pain Cholecystectomy planned 2017 Mild acid reflux Recurrent tinea pedis Smoker Surgical History Surgical History History of cholecystectomy Family History Family History Father Family history of thyroid disease Diabetes mellitus Hypertension Family history of hypothyroidism Mother Hypertension Other Cerebrovascular accident Family history of arthritis Family history of kidney disease Social History Social History (Updated 07/15/22 @ 14:51 by Surendra Wu MA) 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 -WEEKENDS Smoking packs per day: 1 Smoking cigarettes per day: 20.0 Years smoked: 24 Smoking pack-years: 24.00 Smoking status: Former smoker Tobacco type: cigarettes Alcohol intake: never Substance use type: does not use Lack of Transportation: No Lack of Food: Never True Current Housing: I Have Housing Concerned About Future Housing: No Difficulty Paying Gas/Electric Bills: No Difficulty Paying for Meds: No Currently Unemployed: No Education: High School Diploma/GED Difficulty w/ Childcare or Family Care: No Living arrangements: with family Gender identity (if verbalized by the patient): Male Spiritual care concerns: No Anes - Eval Final PreProcedure Day of Procedure 08/03/22 08:20 Patient weight: morbidly obese Heart: regular rate and rhythm Lungs: clear to auscultation Airway: Mallampati scale class II Neurological: alert and oriented Last oral intake: >/= 8 hours ASA classification: III Emergent: no Anesthetic plan: proceed Anesthesia type and monitoring: general GIVS and standard monitoring Results Review: All pre-operative results and documents have been reviewed as part of the pre-operative evaluation. Informed Consent: The patient's anesthetic plan and its attendant risks and benefits were discussed with the patient/family/POA. Questions were solicited and answers provided to the satisfaction of the patient/family/POA.
[2022-08-03 09:00] VITALS: BP 113/70; PULSE 64; RESP 23; O2SAT 95
--- NOTE | 2022-08-03 09:00 | SUR.OPER ---
EGD START 840, END 841 COLONOSCOPY START 848, END 857
[2022-08-03 09:10] VITALS: BP 116/67; PULSE 55; RESP 16; O2SAT 100
[2022-08-03 09:20] VITALS: BP 111/66; PULSE 60; RESP 16; O2SAT 98
== END 2022-08-03 09:23 | disposition home or self-care (01) ==
PROVIDERS: PCP Internal Medicine; Visit Provider Internal Medicine Gastroenterology
PROC: 0DJ08ZZ Inspection of Upper Intestinal Tract, Via Natural or Artificial Opening Endoscopic (ICD-10-PCS; CPT 43235; principal; 2022-08-03 09:00)
DX: Z12.11 Encounter for screening for malignant neoplasm of colon (principal); K64.8 Other hemorrhoids; K21.9 Gastro-esophageal reflux disease without esophagitis; Z87.891 Personal history of nicotine dependence; E66.01 Morbid (severe) obesity due to excess calories; Z68.41 Body mass index [BMI] 40.0-44.9, adult
CPT/HCPCS: 45378; 43239; 87081; J2704; J7120

== ENCOUNTER 2022-10-27 14:22 | Outpatient (CLI) | payer BC, SELFPAY ==
--- NOTE | 2022-10-27 16:59 | WPDPFTINT ---
PFT Procedure Performed PFT Procedure Performed Spirometry with Pre/Post Bronchodilator Plethysmography (Lung Vol) Diffusing Cap (DLCO) Flow Vol Loop PFT Interpretation This is a pulmonary function test with pre and post-bronchodilator spirometry, plethysmography and diffusing capacity. The test was performed and results interpreted in accordance with the 2019 and 2005 ATS/ERS Task Force guidelines respectively using the Global Lung Function Initiative-2012 reference equations. Patient demonstrated good effort and cooperation. Reproducibility criteria were met. The quality of the pre bronchodilator spirometry maneuver was Grade A and post bronchodilator spirometry maneuver was Grade A. Findings: Spirometry: The contour the inspiratory and expiratory flow tracing are normal. The pre bronchodilator FVC is 4.34 L, 83% predicted. The pre bronchodilator FEV1 is 3.59 L, 86% predicted. The pre bronchodilator FEV1: FVC ratio was 83% predicted. The post bronchodilator FVC is 4.46 L, representing a 3% increase. The post bronchodilator FEV1 is 3.78 L, representing a 5% increase. The post bronchodilator FEV1: FVC ratio is 85%. Plethysmography: The total lung capacity is 5.97 L, 84% predicted. The functional residual capacity is 2.09 L, 58% predicted. The residual volume is 1.41 L, 71% predicted. Diffusing capacity: The diffusing capacity unadjusted for hemoglobin and carboxyhemoglobin is 27.0, 84% predicted. The diffusing capacity adjusted for alveolar volume is 4.80, 104% predicted. Impression: The spirometry is normal without evidence of an obstructive abnormality. There is no significant improvement after inhaling a single dose of albuterol. The total lung capacity and and residual volume are normal with a decreased functional residual capacity. This is an abnormal but nonspecific lung volume pattern. The diffusing capacity is normal. There are no prior studies for comparison
== END 2022-10-27 14:23 | disposition home or self-care (01) ==
LOC: ANHPFT 14:24
PROVIDERS: PCP Internal Medicine; Visit Provider Clinical Nurse Specialist
DX: R06.02 Shortness of breath (principal)
CPT/HCPCS: 94060; 94726; 94729

== ENCOUNTER 2022-11-03 08:34 | Emergency (ER) | payer BC, SELFPAY ==
[2022-11-03 08:41] VITALS: BP 124/77; PULSE 58; RESP 16; TEMP 36.8; O2SAT 100
[2022-11-03 08:44] VITALS: BP 124/77; PULSE 58; RESP 16; TEMP 36.8; O2SAT 100
--- NOTE | 2022-11-03 08:53 | ED.URI ---
HPI - URI/Sore Throat General Chief Complaint: Upper Respiratory Infection Stated Complaint: Cough/Sinus Time Seen by Provider: 11/03/22 08:54 Source: patient and RN notes reviewed Mode of arrival: ambulatory Limitations: no limitations History of Present Illness HPI Narrative: 47-year-old male presented for complaint of sore throat for about 4 days, and started with nonproductive cough for 3 days. Endorses sinus congestion and postnasal drainage and subjective fever. He denies fatigue, body aches, chest pain, shortness of breath, wheezing, nausea, vomiting, diarrhea. Denies sick contacts. Taking Tylenol for symptoms. MD elicited complaint: cough Related Data Home Medications Medication Instructions Recorded Confirmed cyclobenzaprine 10 mg tablet 10 mg PO BID PRN Pain 07/20/22 11/03/22 acetaminophen 325 mg tablet 650 mg PO Q6H PRN Pain 07/21/22 11/03/22 Allergies Allergy/AdvReac Type Severity Reaction Status Date / Time ibuprofen AdvReac Severe Unknown Verified 09/28/22 14:47 Review of Systems Review of Systems: CONSTITUTIONAL: Denies malaise, chills, sweats, reports fever EYES: Denies visual changes, redness, or discharge ENT: Reports rhinorrhea, congestion, sore throat denies sinus pain, otalgia CARDIOVASCULAR: Denies chest pain, palpitations, edema RESPIRATORY: Reports cough, post nasal drainage. Denies dyspnea GASTROINTESTINAL: Denies abdominal pain, nausea, vomiting, diarrhea SKIN: Denies rash or itching MUSCULOSKELETAL: Denies myalgia NEUROLOGIC: Denies headache PMFSH Past Medical History Medical History Cellulitis of lower leg Left Chest pain Cholecystectomy planned 2017 Mild acid reflux Recurrent tinea pedis Smoker Surgical History Surgical History History of cholecystectomy Family History Family History Father Family history of thyroid disease Diabetes mellitus Hypertension Family history of hypothyroidism Mother Hypertension Other Cerebrovascular accident Family history of arthritis Family history of kidney disease Social History Social History 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 -WEEKENDS Smoking packs per day: 1 Smoking cigarettes per day: 20.0 Years smoked: 24 Smoking pack-years: 24.00 Smoking status: Former smoker Tobacco type: cigarettes Alcohol intake: never Substance use type: does not use Lack of Transportation: No Lack of Food: Never True Current Housing: I Have Housing Concerned About Future Housing: No Difficulty Paying Gas/Electric Bills: No Difficulty Paying for Meds: No Currently Unemployed: No Education: High School Diploma/GED Difficulty w/ Childcare or Family Care: No Living arrangements: with family Gender identity (if verbalized by the patient): Male Spiritual care concerns: No Exam Narrative: GENERAL: Mildly ill-appearing, nontoxic no acute distress. HEAD: Normocephalic EYES: PERRLA, conjunctivae clear ENT: Mucous membranes moist. TMs pearly bartlett with dull light reflex bilaterally; no tragal tenderness. Oropharynx mildly erythematous without lesions or exudate, no drooling, no hoarseness, no trismus, uvula midline. No tripod positioning, muffled voice, soft palate or pharyngeal wall bulging NECK: Supple. No lymphadenopathy CHEST: Clear to auscultation, breath sounds equal. No wheezing, rhonchi, rales, or stridor. No respiratory distress, speaks in full sentences. HEART: Regular rate and rhythm. No murmur heard. SKIN: Warm, dry, no rash. NEURO: Alert and oriented x3. PSYCH: Normal mood and affect Course Course Emergency Course: Patient is aware of diagnosis, understands and agrees to treatment plan. Anticipatory guidance given. Patient agrees to follow-up as directed and is aware of reasons to seek care at the
== END 2022-11-03 09:23 | disposition home or self-care (01) ==
PROVIDERS: Emergency Provider Nurse Practitioner Family; PCP Internal Medicine
DX: J06.9 Acute upper respiratory infection, unspecified (principal); Z20.822 Contact with and (suspected) exposure to COVID-19; K21.9 Gastro-esophageal reflux disease without esophagitis; Z87.891 Personal history of nicotine dependence
CPT/HCPCS: 87081; 87426; 87880; 99213; C9803; G0463

== ENCOUNTER 2023-03-06 07:42 | Outpatient (CLI) | payer BC, SELFPAY ==
[2023-03-06 08:07] LABS: Basophils Absolute Auto 0.1 K/mm3 (0.0-0.1); Basophils Percent Auto 1.2 % (0.2-1.2); Eosinophils Absolute Auto 0.3 K/mm3 (0-0.3); Eosinophils Percent Auto 3.9 % (0-4.4); Hematocrit 45.9 % (42.0-52.0); Hemoglobin 15.2 g/dL (14.0-18.0); Immature Granulocyte Absolute 0.02 K/mm3 (0.00-0.031); Immature Granulocyte Percent A 0.3 % (0-0.5); Lymphocytes Absolute Auto 2.03 K/mm3 (0.9-3.2); Lymphocytes Percent Auto 30.3 % (18.3-44.2); Mean Corpuscular HGB Conc 33.1 g/dl (32-36); Mean Corpuscular Hemoglobin 30.5 pg (26-34); Mean Platelet Volume 9.8 fl (7.4-10.4); Monocytes Absolute Auto 0.6 K/mm3 (0.1-0.6); Monocytes Percent Auto 9.1 % (2.6-8.5); Neutrophils Absolute Auto 3.7 K/mm3 (1.3-6.7); Neutrophils Percent Auto 55.2 % (45.5-73.1); Platelet Count Result 242 k/mm3 (150-375); Red Blood Count 4.99 M/mm3 (4.6-6.20); Red Cell Distribution Width 12.9 % (11.5-14.5); White Blood Count 6.7 K/mm3 (4.5-10.0)
[2023-03-06 08:20] LABS: Alanine Aminotransferase 24 U/L (6-50); Albumin Level 4.3 g/dL (3.5-5.1); Alkaline Phosphatase 71 U/L (38-126); Anion Gap 9 mmol/L (8-16); Aspartate Amino Transferase 27 U/L (17-59); Bilirubin,Total 0.7 mg/dL (0.2-1.3); Blood Urea Nitrogen 15 mg/dL (9-20); Calcium 8.6 mg/dL (8.4-10.2); Carbon Dioxide 24 mmol/L (22-30); Chloride 105 mmol/L (98-107); Cholesterol 177 mg/dL (0-200); Estimated Glomerular Filt Rate > 60; Glucose 120 mg/dL (65-110); HDL Direct 42 mg/dL; Potassium 4.5 mmol/L (3.4-5.0); Sodium 138 mmol/L (137-145); Triglycerides 76 mg/dL (<150)
[2023-03-06 08:29] LABS: LDL Cholesterol Direct 106 mg/dL
[2023-03-08 12:08] LABS: Hemoglobin A1C 5.8 % (<5.7)
== END 2023-03-06 07:43 | disposition home or self-care (01) ==
LOC: ANHLAB 07:44
PROVIDERS: PCP Internal Medicine; Visit Provider Clinical Nurse Specialist
DX: Z13.228 Encounter for screening for other metabolic disorders (principal); Z13.220 Encounter for screening for lipoid disorders; R73.9 Hyperglycemia, unspecified
CPT/HCPCS: 36415; 80053; 80061; 83036; 85025

== ENCOUNTER 2023-04-07 13:25 | Outpatient (CLI) | payer BC, SELFPAY ==
--- NOTE | 2023-04-07 14:30 | NEURO_ITS ---
Impression: # Complains of restless legs # Normal Nerve Conduction Study. # Normal needle/EMG. # Clinical correlation recommended. Nerve Conduction Studies Anti Sensory Summary Table Stim Site NR Peak (ms) P-T Amp (?V) Site1 Site2 Delta-P (ms) Dist (cm) Layton (m/s) Left Saphenous Anti Sensory (Ant Med Mall) 14cm 3.7 53.8 14cm Ant Med Mall 3.7 0.0 Right Saphenous Anti Sensory (Ant Med Mall) 14cm 3.6 19.6 14cm Ant Med Mall 3.6 0.0 Left Sup Fibular Anti Sensory (Ant Lat Mall) 14 cm 3.4 13.8 14 cm Ant Lat Mall 3.4 16.0 47 Right Sup Fibular Anti Sensory (Ant Lat Mall) 14 cm 3.3 25.2 14 cm Ant Lat Mall 3.3 16.0 48 Left Sural Anti Sensory (Lat Mall) Calf 3.4 13.3 Calf Lat Mall 3.4 16.0 47 Right Sural Anti Sensory (Lat Mall) Calf 3.6 31.4 Calf Lat Mall 3.6 16.0 44 Motor Summary Table Stim Site NR Onset (ms) O-P Amp (mV) Site1 Site2 Delta-0 (ms) Dist (cm) Layton (m/s) Left Peroneal Motor (Vastus Med) Ankle 3.8 2.7 Popit Ankle 8.5 43.0 51 Popit 12.3 3.2 Right Peroneal Motor (Vastus Med) Ankle 3.8 2.7 Popit Ankle 8.2 42.0 51 Popit 12.0 3.2 Left Tibial Motor (Abd Tobar Brev) Ankle 4.1 6.5 Knee Ankle 9.3 45.0 48 Knee 13.4 5.6 Right Tibial Motor (Abd Tobar Brev) Ankle 4.2 5.2 Knee Ankle 8.7 44.0 51 Knee 12.9 2.8 F Wave Studies NR F-Lat (ms) L-R F-Lat (ms) Left Peroneal (Mrkrs) (EDB) 53.13 0.00 Right Peroneal (Mrkrs) (EDB) 53.13 0.00 Left Tibial (Mrkrs) (Abd Hallucis) 54.03 0.43 Right Tibial (Mrkrs) (Abd Hallucis) 53.59 0.43 EMG Side Muscle Nerve Root Ins Act Fibs Amp Dur Recrt Comment Right AntTibialis Dp Br Fibular L4-5 Nml Nml Nml Nml Nml Right Gastroc Tibial S1-2 Nml Nml Nml Nml Nml Right Fibularis Long Sup Br Fibular L5-S1 Nml Nml Nml Nml Nml Right Flex Dig Long Tibial L5-S2 Nml Nml Nml Nml Nml Right Ext Dig Brev Dp Br Fibular L5, S1 Nml Nml Nml Nml Nml Left AntTibialis Dp Br Fibular L4-5 Nml Nml Nml Nml Nml Left Gastroc Tibial S1-2 Nml Nml Nml Nml Nml Left Fibularis Long Sup Br Fibular L5-S1 Nml Nml Nml Nml Nml Left Flex Dig Long Tibial L5-S2 Nml Nml Nml Nml Nml Left Ext Dig Brev Dp Br Fibular L5, S1 Nml Nml Nml Nml Nml MTDD
== END 2023-04-07 13:26 | disposition home or self-care (01) ==
LOC: ANHNEURO 13:33
PROVIDERS: PCP Internal Medicine; Visit Provider Clinical Nurse Specialist
DX: G25.81 Restless legs syndrome (principal)
CPT/HCPCS: 95886; 95911

== ENCOUNTER 2023-04-17 06:35 | Outpatient (CLI) | payer BC, SELFPAY | END 2023-04-17 06:36 | disposition home or self-care (01) | LOC: ANHLAB 06:38 | PROVIDERS: PCP Internal Medicine; Visit Provider Clinical Nurse Specialist | DX: G25.81 Restless legs syndrome (principal) | CPT/HCPCS: 36415; 82728; 83735 ==

== ENCOUNTER 2023-05-24 14:07 | Emergency (ER) | payer BC, SELFPAY ==
[2023-05-24 14:29] VITALS: BP 131/93; PULSE 69; RESP 16; TEMP 36.8; O2SAT 98
--- NOTE | 2023-05-24 14:55 | ED.EXTPRO ---
HPI - Extremity Problem General Chief complaint: Back Pain/Injury Stated complaint: Lower Back/Knee/Ankle Time Seen by Provider: 05/24/23 14:37 Source: patient, family () and RN notes reviewed Mode of arrival: ambulatory Limitations: no limitations History of Present Illness HPI Narrative: Patient presents today complaining of 3 day history of right low back pain and right knee pain as well as right ankle pain that started today. 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 Denies any specific injury or trauma. Denies numbness or tingling in the legs or genitalia. Denies loss of bowel or bladder control. States pain in the back is only present with movement. He currently rates his knee pain 10/05. He has been taking Tylenol without much relief. Related Data Home Medications Medication Instructions Recorded Confirmed acetaminophen 325 mg tablet 650 mg PO Q6H PRN Pain 07/21/22 05/24/23 Allergies Allergy/AdvReac Type Severity Reaction Status Date / Time ibuprofen AdvReac Severe Unknown Verified 05/24/23 14:23 Review of Systems Review of Systems: CONSTITUTIONAL: Denies body aches, fever, chills, or sweats. EYES: Denies visual changes, redness, or discharge. ENT: Denies rhinorrhea, congestion, sore throat, or otalgia. CARDIOVASCULAR: Denies chest pain, palpitations, or edema. RESPIRATORY: Denies cough or dyspnea. GASTROINTESTINAL: Denies abdominal pain, nausea, vomiting, or diarrhea. GENITOURINARY: Denies dysuria or hematuria. SKIN: Denies rash, itching, or wounds. MUSCULOSKELETAL: + back pain, knee pain, ankle pain NEUROLOGIC: Denies headache, numbness, tingling, or weakness. PSYCH: Denies depression or anxiety. [facility] Past Medical History Medical History Back Pain Cellulitis of lower leg Left Chest discomfort Chest pain Cholecystectomy planned 2018 Contact dermatitis COVID-19 Encounter for smoking cessation counseling [facility] discharge follow-up Kidney stone LLQ abdominal pain Lumbar back pain LUQ abdominal pain Mild acid reflux Recurrent tinea pedis Rib pain on left side Right bundle branch block Screening for lipoid disorders Screening for metabolic disorder Shortness of Breath Smoker Surgical History Surgical History History of cholecystectomy Family History Family History Father Family history of thyroid disease Diabetes mellitus Hypertension Family history of hypothyroidism Mother Hypertension Other Cerebrovascular accident Family history of arthritis Family history of kidney disease Social History Social History 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 -WEEKENDS Smoking packs per day: 1 Smoking cigarettes per day: 20.0 Years smoked: 24 Smoking pack-years: 24.00 Smoking status: Former smoker Tobacco type: cigarettes Alcohol intake: never Substance use type: does not use Lack of Transportation: No Lack of Food: Never True Current Housing: I Have Housing Concerned About Future Housing: No Difficulty Paying Gas/Electric Bills: No Difficulty Paying for Meds: No Currently Unemployed: No Education: High School Diploma/GED Difficulty w/ Childcare or Family Care: No Living arrangements: with family Gender identity (if verbalized by the patient): Male Spiritual care concerns: No Comments At time of signature, I have reviewed and agree with nursing past medical, surgical, social and family history unless otherwise noted. Please see nursing chart for further information. There is no relevant family history pertinent to the presenting complaint Exam Narrative: GENERAL: Well-appearing, well-nourished, and in no acute distress. HEAD: Normocephalic,
== END 2023-05-24 15:07 | disposition home or self-care (01) ==
PROVIDERS: Emergency Provider Nurse Practitioner; PCP Internal Medicine
DX: M76.9 Unspecified enthesopathy, lower limb, excluding foot (principal); S39.012A Strain of muscle, fascia and tendon of lower back, initial encounter; S96.911A Strain of unspecified muscle and tendon at ankle and foot level, right foot, initial encounter; X58.XXXA Exposure to other specified factors, initial encounter; Z87.891 Personal history of nicotine dependence; K21.9 Gastro-esophageal reflux disease without esophagitis; Z86.16 Personal history of COVID-19
CPT/HCPCS: 99213; G0463

== ENCOUNTER 2023-07-23 09:00 | Emergency (ER) | payer BC, SELFPAY ==
[2023-07-23 09:21] VITALS: BP 148/92; PULSE 55; RESP 18; TEMP 36.5; O2SAT 100
--- NOTE | 2023-07-23 09:35 | ED.URI ---
HPI - URI/Sore Throat General Chief Complaint: Upper Respiratory Infection Stated Complaint: Sore Throat/Sinus Time Seen by Provider: 07/23/23 09:35 Source: patient Mode of arrival: ambulatory Limitations: no limitations History of Present Illness HPI Narrative: 48 yo M presents with c/o sore throat, fatigue, bodyaches, chills for 2 days. Deneis N/v/d. All systems reviewed and negative excetp as noted above. Related Data Allergies Allergy/AdvReac Type Severity Reaction Status Date / Time ibuprofen AdvReac Severe Unknown Verified 07/23/23 09:01 Review of Systems Review of Systems: CONSTITUTIONAL: Denies fever, chills, or sweats. reports fatigue. EYES: Denies visual changes, redness, or discharge. ENT: Denies rhinorrhea, congestion. Reports sore throat. Denies otalgia. CARDIOVASCULAR: Denies chest pain, palpitations, or edema. RESPIRATORY: Denies cough or dyspnea. GASTROINTESTINAL: Denies abdominal pain, nausea, vomiting, or diarrhea. GENITOURINARY: Denies dysuria or hematuria. SKIN: Denies rash or itching. MUSCULOSKELETAL: Denies back pain, joint pain . Reports myalgia. NEUROLOGIC: Denies headache, numbness, or weakness. PSYCHIATRIC: Denies anxiety or depression. All other systems reviewed are negative, except as documented in HPI. [facility] Past Medical History Medical History Back Pain Cellulitis of lower leg Left Chest discomfort Chest pain Cholecystectomy planned 2018 Contact dermatitis COVID-19 Encounter for smoking cessation counseling [facility] discharge follow-up Kidney stone LLQ abdominal pain Lumbar back pain LUQ abdominal pain Mild acid reflux Recurrent tinea pedis Rib pain on left side Right bundle branch block Screening for lipoid disorders Screening for metabolic disorder Shortness of Breath Smoker Surgical History Surgical History History of cholecystectomy Family History Family History Father Family history of thyroid disease Diabetes mellitus Hypertension Family history of hypothyroidism Mother Hypertension Other Cerebrovascular accident Family history of arthritis Family history of kidney disease Social History Social History 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 -WEEKENDS Smoking packs per day: 1 Smoking cigarettes per day: 20.0 Years smoked: 24 Smoking pack-years: 24.00 Smoking status: Former smoker Tobacco type: cigarettes Alcohol intake: never Substance use type: does not use Lack of Transportation: No Lack of Food: Never True Current Housing: I Have Housing Concerned About Future Housing: No Difficulty Paying Gas/Electric Bills: No Difficulty Paying for Meds: No Currently Unemployed: No Education: High School Diploma/GED Difficulty w/ Childcare or Family Care: No Living arrangements: with family Gender identity (if verbalized by the patient): Male Spiritual care concerns: No Comments At time of signature, agree with nursing past medical, surgical, social and family history. There is no relevant family history pertinent to the presenting complaint. Exam Narrative: GENERAL: This is a well-nourished, well-developed patient, Patient ill-appearing but in no acute distress. HEAD: normocephalic, atraumatic. EYES: PERRL. Sclera clear/white. Vision is grossly intact. EARS: External ears normal, auditory canals clear and without drainage, TMs normal without perforation. Hearing grossly intact. NOSE: External nose normal with no obvious nasal discharge, nares without redness, no rhinorrhea. THROAT: Mucous membranes moist, erythema, swelling, tonsils 1+ bilaterally. No exudates. NECK: Neck supple, non-tender without Anterior cervical lymphadenopathy. No masses or thyromegaly. CARDIOVASCULAR: Regular rate and rhythm without mu
== END 2023-07-23 10:00 | disposition home or self-care (01) ==
PROVIDERS: Emergency Provider Nurse Practitioner Family; PCP Internal Medicine
DX: J02.9 Acute pharyngitis, unspecified (principal); Z20.822 Contact with and (suspected) exposure to COVID-19; Z87.891 Personal history of nicotine dependence; K21.9 Gastro-esophageal reflux disease without esophagitis; Z86.16 Personal history of COVID-19
CPT/HCPCS: 87081; 87426; 87804; 87880; 99213; G0463

== ENCOUNTER 2023-09-28 13:18 | Emergency (ER) | payer BC, SELFPAY ==
[2023-09-28 13:23] VITALS: BP 119/82; PULSE 65; RESP 16; TEMP 36.6; O2SAT 97
--- NOTE | 2023-09-28 13:26 | ED.GENADULT ---
HPI - General Adult General Chief complaint: Extremity Problem,Nontraumatic Stated complaint: Left Elbow/Shoulder Pain Time Seen by Provider: 09/28/23 13:27 Source: patient, RN notes reviewed and old records reviewed Mode of arrival: ambulatory Limitations: no limitations History of Present Illness HPI narrative: 48-year-old male to [facility] with complaint of left elbow and left shoulder pain since yesterday. patient endorses lifting a heavy trailer hitch 2 days ago and again yesterday with left arm. Patient believes this may be a contributing factor. Patient denies any prior injury, surgery, pertinent medical history, numbness, tingling, weakness. Patient states that pain is worse active range of motion. Patient in no acute distress. Patient requesting work note. Related Data Allergies Allergy/AdvReac Type Severity Reaction Status Date / Time ibuprofen AdvReac Severe Unknown Verified 09/28/23 13:25 Review of Systems Review of Systems: All systems reviewed & are unremarkable except as noted in HPI and below Constitutional: Constitutional: Reports no additional constitutional complaints Eyes: Eyes: Reports no additional eye complaints ENT: Reports system reviewed and no additional complaints, except as documented Cardiovascular: Cardiovascular: Reports no additional cardiovascular complaints, Denies chest pain and Denies dyspnea Respiratory: Respiratory: Reports no additional respiratory complaints, Denies cough and Denies dyspnea Musculoskeletal: Musculoskeletal: Reports as per HPI and Reports arthralgias ( left elbow and left shoulder ) Neurologic: Reports system reviewed and no additional complaints, except as documented Psychiatric: Psychiatric: Reports no additional psychiatric complaints PMFSH Past Medical History Medical History Back Pain Cellulitis of lower leg Left Chest discomfort Chest pain Cholecystectomy planned 2018 Contact dermatitis COVID-19 Encounter for smoking cessation counseling [facility] discharge follow-up Kidney stone LLQ abdominal pain Lumbar back pain LUQ abdominal pain Mild acid reflux Recurrent tinea pedis Rib pain on left side Right bundle branch block Screening for lipoid disorders Screening for metabolic disorder Shortness of Breath Smoker Surgical History Surgical History History of cholecystectomy Family History Family History Father Family history of thyroid disease Diabetes mellitus Hypertension Family history of hypothyroidism Mother Hypertension Other Cerebrovascular accident Family history of arthritis Family history of kidney disease Social History Social History 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 -WEEKENDS Smoking packs per day: 1 Smoking cigarettes per day: 20.0 Years smoked: 24 Smoking pack-years: 24.00 Smoking status: Former smoker Tobacco type: cigarettes Alcohol intake: never Substance use type: does not use Lack of Transportation: No Lack of Food: Never True Current Housing: I Have Housing Concerned About Future Housing: No Difficulty Paying Gas/Electric Bills: No Difficulty Paying for Meds: No Currently Unemployed: No Education: High School Diploma/GED Difficulty w/ Childcare or Family Care: No Living arrangements: with family Gender identity (if verbalized by the patient): Male Spiritual care concerns: No Comments At the time of my signature, I reviewed and agree with the nursing past medical, surgical, social, and family history. There is no relevant family history pertinent to the patient complaint. Exam Const: General: cooperative, healthy appearing, no acute distress, alert and well nourished Nutritional Appearance: well nourished Orientation/consciousness: patient oriented x3
== END 2023-09-28 14:28 | disposition home or self-care (01) ==
PROVIDERS: Emergency Provider Nurse Practitioner Family; PCP Internal Medicine
DX: S46.912A Strain of unspecified muscle, fascia and tendon at shoulder and upper arm level, left arm, initial encounter (principal); S56.912A Strain of unspecified muscles, fascia and tendons at forearm level, left arm, initial encounter; X50.0XXA Overexertion from strenuous movement or load, initial encounter; Z87.891 Personal history of nicotine dependence; K21.9 Gastro-esophageal reflux disease without esophagitis; Z86.16 Personal history of COVID-19
CPT/HCPCS: 99213; G0463

== ENCOUNTER 2023-10-14 14:05 | Outpatient (CLI) | payer BC, SELFPAY ==
--- NOTE | ~2023-10-14 | XR_ITS ---
Left Shoulder Technique: AP and axillary views were obtained. Clinical History: Injury Findings: No fracture or dislocation is seen. Osseous alignment is anatomic. The glenohumeral and acr omioclavicular joint spaces are preserved. Soft tissues are unremarkable. Impression: Unremarkable left shoulder radiographs. Reviewed, dictated and finalized at [facility]. Impression: Unremarkable left shoulder radiographs.
== END 2023-10-14 14:06 ==
LOC: GOSHIMG 14:06
PROVIDERS: PCP Clinical Nurse Specialist; Visit Provider Nurse Practitioner
DX: M25.512 Pain in left shoulder (principal)
CPT/HCPCS: 73030

== ENCOUNTER 2023-11-08 09:59 | Emergency (ER) | payer BC, SELFPAY ==
[2023-11-08 10:13] VITALS: BP 140/79; PULSE 66; RESP 18; TEMP 36.7; O2SAT 96
--- NOTE | 2023-11-08 10:19 | ED.URI ---
HPI - URI/Sore Throat General Chief Complaint: Upper Respiratory Infection Stated Complaint: Sore Throat/ Fever Time Seen by Provider: 11/08/23 10:36 Source: patient and RN notes reviewed Mode of arrival: ambulatory Limitations: no limitations History of Present Illness HPI Narrative: 48-year-old male presents with concern for sore throats, feeling feverish since yesterday. He reports postnasal drip. He denies nasal congestion, cough, headache, stomach ache, chills, body aches, sweats. He has not taken any medication for this [id number]. MD elicited complaint: sore throat Related Data Allergies Allergy/AdvReac Type Severity Reaction Status Date / Time ibuprofen AdvReac Severe Unknown Verified 11/08/23 10:02 Review of Systems Review of Systems: CONSTITUTIONAL: Denies malaise, chills, sweats. Reports feeling feverish EYES: Denies visual changes, redness, or discharge. ENT: Reports postnasal drainage and sore throat. Denies rhinorrhea, congestion, sinus pain, otalgia CARDIOVASCULAR: Denies chest pain, palpitations, or edema. RESPIRATORY: Denies cough. Denies dyspnea. GASTROINTESTINAL: Denies abdominal pain, nausea, vomiting, diarrhea SKIN: Denies rash or itching. MUSCULOSKELETAL: Denies myalgia. NEUROLOGIC: Denies headache. All systems reviewed & are unremarkable except as noted in HPI and below PMFSH Past Medical History Medical History Back Pain Cellulitis of lower leg Left Chest discomfort Chest pain Cholecystectomy planned 2018 Contact dermatitis COVID-19 Encounter for smoking cessation counseling [facility] discharge follow-up Kidney stone LLQ abdominal pain Lumbar back pain LUQ abdominal pain Mild acid reflux Recurrent tinea pedis Rib pain on left side Right bundle branch block Screening for lipoid disorders Screening for metabolic disorder Shortness of Breath Smoker Surgical History Surgical History History of cholecystectomy Family History Family History Father Family history of thyroid disease Diabetes mellitus Hypertension Family history of hypothyroidism Mother Hypertension Other Cerebrovascular accident Family history of arthritis Family history of kidney disease Social History Social History 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 -WEEKENDS Smoking packs per day: 1 Smoking cigarettes per day: 20.0 Years smoked: 24 Smoking pack-years: 24.00 Smoking status: Former smoker Tobacco type: cigarettes Alcohol intake: never Substance use type: does not use Lack of Transportation: No Lack of Food: Never True Current Housing: I Have Housing Concerned About Future Housing: No Difficulty Paying Gas/Electric Bills: No Difficulty Paying for Meds: No Currently Unemployed: No Education: High School Diploma/GED Difficulty w/ Childcare or Family Care: No Living arrangements: with family Gender identity (if verbalized by the patient): Male Spiritual care concerns: No Comments At time of signature, agree with nursing past medical, surgical, social and family history. There is no relevant family history pertinent to the presenting complaint Exam Narrative: GENERAL: Well-appearing, well-nourished, and in no acute distress. HEAD: Normocephalic EYES: PERRLA, conjunctivae clear ENT: Nares clear, turbinates edematous and erythematous, clear discharge. Mucous membranes moist. TM pearly bartlett with dull light reflex bilaterally; no tragal tenderness. Oropharynx not erythematous without lesions. Tonsils not enlarged and without exudate, no drooling, no hoarseness, no trismus, uvula midline. NECK: Supple. No lymphadenopathy CHEST: Clear to auscultation, breath sounds equal. No wheezing, rhonchi, rales, or stridor. No respiratory distress, speaks in full sentences. HEAR
[2023-11-08 10:42] LABS: EDINFLUASCREEN Negative; EDINFLUBSCREEN Negative; EDSTREPNEGPOS1 Presumptive Negative
== END 2023-11-08 10:50 | disposition home or self-care (01) ==
PROVIDERS: Emergency Provider Nurse Practitioner; PCP Clinical Nurse Specialist
DX: J02.9 Acute pharyngitis, unspecified (principal); Z20.822 Contact with and (suspected) exposure to COVID-19; Z87.891 Personal history of nicotine dependence; K21.9 Gastro-esophageal reflux disease without esophagitis; Z86.16 Personal history of COVID-19
CPT/HCPCS: 87081; 87426; 87804; 87880; 99213; G0463

== ENCOUNTER 2024-02-15 09:34 | Emergency (ER) | payer BC, SELFPAY ==
[2024-02-15 09:42] VITALS: BP 121/77; PULSE 62; RESP 16; TEMP 36.3; O2SAT 99
[2024-02-15 10:25] LABS: EDSTREPNEGPOS1 Negative (Negative)
--- NOTE | 2024-02-15 10:34 | ED_ITS ---
HPI - General Adult General Chief complaint: Upper Respiratory Infection Stated complaint: SORE THROAT, DRAINAGE Source: patient Mode of arrival: ambulatory Limitations: no limitations History of Present Illness HPI narrative: Patient presents for evaluation of sore throat. Symptom onset this morning. He had strep throat many years ago but cannot remember if his symptoms at that time were the same he is having now. Several individuals at work currently have strep pharyngitis. Denies any fever, chills, nausea, vomiting, cough, shortness of breath. He has not tried any medications to assist with the symptoms. Related Data Allergies Allergy/AdvReac Type Severity Reaction Status Date / Time ibuprofen AdvReac Severe Unknown Verified 02/15/24 10:03 Review of Systems Review of Systems: CONSTITUTIONAL: Denies fever, chills, or sweats. EYES: Denies visual changes, redness, or discharge. ENT: Reports sore throatDenies rhinorrhea, congestion, or otalgia. CARDIOVASCULAR: Denies chest pain, palpitations, or edema. RESPIRATORY: Denies cough or dyspnea. GASTROINTESTINAL: Denies abdominal pain, nausea, vomiting, or diarrhea. GENITOURINARY: Denies dysuria or hematuria. SKIN: Denies rash or itching. MUSCULOSKELETAL: Denies back pain, joint pain, or myalgia. NEUROLOGIC: Denies headache, numbness, dizziness, or weakness. PSYCHIATRIC: Denies anxiety or depression. [facility], [facility] Past Medical History Medical History Back Pain Cellulitis of lower leg Left Chest discomfort Chest pain Cholecystectomy planned 2018 Contact dermatitis COVID-19 Encounter for smoking cessation counseling [facility] follow-up Kidney stone LLQ abdominal pain Lumbar back pain LUQ abdominal pain Mild acid reflux Recurrent tinea pedis Rib pain on left side Right bundle branch block Screening for lipoid disorders Screening for metabolic disorder Shortness of Breath Smoker Surgical History Surgical History History of cholecystectomy Family History Family History Father Family history of thyroid disease Diabetes mellitus Hypertension Family history of hypothyroidism Mother Hypertension Other Cerebrovascular accident Family history of arthritis Family history of kidney disease Social History Social History 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 -WEEKENDS Smoking packs per day: 1 Smoking cigarettes per day: 20.0 Years smoked: 24 Smoking pack-years: 24.00 Smoking status: Former smoker Tobacco type: cigarettes Alcohol intake: never Substance use type: does not use Lack of Transportation: No Lack of Food: Never True Current Housing: I Have Housing Concerned About Future Housing: No Difficulty Paying Gas/Electric Bills: No Difficulty Paying for Meds: No Currently Unemployed: No Education: High School Diploma/GED Difficulty w/ Childcare or Family Care: No Living arrangements: with family Gender identity (if verbalized by the patient): Male Spiritual care concerns: No Exam Narrative: GENERAL: Well-appearing, well-nourished, and in no acute distress. HEAD: Normocephalic, atraumatic. EYES: PERRLA and EOMI. ENT: Nares clear, no rhinorrhea or epistaxis. Mucous membranes moist. posterior pharyngeal erythema. Oropharynx without tonsillar hypertrophy exudate or other lesions. Bilateral TMs pearly bartlett nonbulging NECK: Supple. No adenopathy or masses. No carotid bruits or JVD CHEST: Clear to auscultation. No respiratory distress. No wheezes rales or rhonchi HEART: Regular rate and rhythm. No murmur heard. Normal peripheral pulses. ABDOMEN: Soft, nontender, nondistended, normal active bowel sounds. EXTREMITIES: Normal range of motion. No edema. SKIN: Warm, dry, no rash. NEURO: No focal deficits. Alert and oriented x3. PSYCH: Normal mood and affect. Course Course Emergency Course: This is a 48-year-old male who presented for evaluation of a sore throat. Strep was negative. Through shared decision making opted to treat with abx given recent exposures in event that rapid was false negative. Increase hydration. [id number] agents for symptom management. Follow up with primary provider. Go to the ER for worsening symptoms. Patient in agreement plan of care. Level of Care: Express Care Visit Vital Signs Vital signs: Vital Signs Temperature 36.3 C L 02/15/24 09:42 Pulse Rate 62 02/15/24 09:42 Respiratory Rate 16 02/15/24 09:42 Blood Pressure 121/77 02/15/24 09:42 Pulse Oximetry 99 02/15/24 09:42 Oxygen Delivery Room Air 02/15/24 09:42 Temperature 36.3 C L 02/15/24 09:42 Pulse Rate 62 02/15/24 09:42 Respiratory Rate 16 02/15/24 09:42 Blood Pressure 121/77 02/15/24 09:42 Pulse Oximetry 99 02/15/24 09:42 Oxygen Delivery Room Air 02/15/24 09:42 Medical Decision Making Vital Signs Vital Signs: Vital Signs Temperature 36.3 C L 02/15/24 09:42 Pulse Rate 62 02/15/24 09:42 Respiratory Rate 16 02/15/24 09:42 Blood Pressure 121/77 02/15/24 09:42 Pulse Oximetry 99 02/15/24 09:42 Oxygen Delivery Room Air 02/15/24 09:42 Temperature 36.3 C L 02/15/24 09:42 Pulse Rate 62 02/15/24 09:42 Respiratory Rate 16 02/15/24 09:42 Blood Pressure 121/77 02/15/24 09:42 Pulse Oximetry 99 02/15/24 09:42 Oxygen Delivery Room Air 02/15/24 09:42 Lab Data Labs: Lab Results 02/15/24 Range/Units 10:18 POC Grp A Strep Screen Negative (Negative) Discharge Plan Discharge Clinical Impression: Pharyngitis, Exposure to strep throat Patient Disposition: Home, Self-Care Condition: Stable Instructions: Antibiotic Form, Pharyngitis (ED) Patient Language: [place] Prescriptions: New amoxicillin 500 mg tablet 500 mg PO Q12H Qty: 20 0RF No Action pseudoephedrine HCl [12 Hour Decongestant] 120 mg tablet extended release 120 mg PO Q12H PRN (Reason: nasal congestion) Qty: 20 0RF famotidine 20 mg tablet 20 mg PO BID Qty: 180 0RF sertraline 25 mg tablet 25 mg PO DAILY Qty: 90 1RF Follow-up/Referrals: Jeyson Humphrey DO [Primary Care Provider] - Time of Disposition: 11:02
== END 2024-02-15 11:05 | disposition home or self-care (01) ==
PROVIDERS: Emergency Provider Nurse Practitioner; PCP Internal Medicine
DX: J02.9 Acute pharyngitis, unspecified (principal); Z87.891 Personal history of nicotine dependence
CPT/HCPCS: 87081; 87880; 99213; G0463

== ENCOUNTER 2024-03-11 06:54 | Outpatient (CLI) | payer BC, SELFPAY ==
[2024-03-11 07:36] LABS: Basophils Absolute Auto 0.1 K/mm3 (0.0-0.1); Basophils Percent Auto 1.3 % (0.2-1.2); Eosinophils Absolute Auto 0.3 K/mm3 (0-0.3); Eosinophils Percent Auto 3.7 % (0-4.4); Hematocrit 44.8 % (42.0-52.0); Hemoglobin 14.7 g/dL (14.0-18.0); Immature Granulocyte Absolute 0.01 K/mm3 (0.00-0.031); Immature Granulocyte Percent A 0.1 % (0-0.5); Lymphocytes Absolute Auto 2.41 K/mm3 (0.9-3.2); Mean Corpuscular HGB Conc 32.8 g/dl (32-36); Mean Corpuscular Hemoglobin 30.2 pg (26-34); Mean Platelet Volume 10.1 fl (7.4-10.4); Monocytes Absolute Auto 0.6 K/mm3 (0.1-0.6); Monocytes Percent Auto 8.2 % (2.6-8.5); Neutrophils Absolute Auto 4.1 K/mm3 (1.3-6.7); Neutrophils Percent Auto 54.7 % (45.5-73.1); Platelet Count Result 246 k/mm3 (150-375); Red Blood Count 4.87 M/mm3 (4.6-6.20); Red Cell Distribution Width 12.9 % (11.5-14.5); White Blood Count 7.5 K/mm3 (4.5-10.0)
[2024-03-11 07:43] LABS: Hemoglobin A1C 5.8 % (<5.7)
[2024-03-11 07:44] LABS: Alanine Aminotransferase 25 U/L (6-50); Albumin Level 4.2 g/dL (3.5-5.1); Alkaline Phosphatase 81 U/L (38-126); Anion Gap 3 mmol/L (4-12); Aspartate Amino Transferase 23 U/L (17-59); Bilirubin,Total 0.5 mg/dL (0.2-1.3); Blood Urea Nitrogen 20 mg/dL (9-20); Calcium 8.7 mg/dL (8.4-10.2); Carbon Dioxide 28 mmol/L (22-30); Chloride 106 mmol/L (98-107); Cholesterol 179 mg/dL (0-200); Estimated Glomerular Filt Rate > 60; Glucose 117 mg/dL (65-110); HDL Direct 45 mg/dL; Potassium 4.1 mmol/L (3.4-5.0); Sodium 137 mmol/L (137-145); Triglycerides 73 mg/dL (<150)
[2024-03-11 07:55] LABS: LDL Cholesterol Direct 101 mg/dL
--- OUTSIDE RECORDS SUMMARY | 2024-03-14 20:28 | XMS_ITS | CONTINUITY OF CARE DOCUMENT ---
Author Name uma eaton Address Unknown Organization [facility] Address [address] [place] [address] Phone [phone] Care Team Providers Care Jd Edwards Developer Name Role Phone Shahnaz Mancia MD Unavailable Jeremie Phelps MD Unavailable Jeremie Phelps MD Unavailable [phone] PROBLEMS Condition Status Date Provider Notes ABNORMAL ELECTROCARDIOGRAM active ? Shahnaz Mancia MD OBESITY active ? Shahnaz Mancia MD TOBACCO ABUSE active ? Shahnaz Mancia MD CHEST PAIN active Shahnaz Mancia MD ENCOUNTERS Date Type Provider Location Encounter Diag nosis - In-person encounter Office Visit Shahnaz Mancia MD [place] [facility] CHEST PAINTOBACCO ABUSEOBESITYABNORMAL ELECTROCARDIOGRAM VITAL SIGNS Date Observation Value Provider blood pressure, diastolic 80 mm[Hg] Melanie seph [place] blood pressure, systolic 130 mm[Hg] Tank eph [place] Body Mass Index (Ratio) 39.89 kg/m2 Dixon i Nikos blood pressure, diastolic 85 mm[Hg] Ke rri Nikos blood pressure, systolic 131 mm[Hg] Sheila ri Nikos pulse rate 78 /min Jennifer lemus oxygen saturation, oximetry 98 % Jennifer Knott respiratory rate E&M 17 /min Jennifer escamilla weight E&M 281 [lb_av] Jennifer Blakely lder height E&M 70.5 [in_i] Jennifer Blakely lder ALLERGIES No Known Drug Allergies RESULTS Date Observation Value Provider Reference Range Interpretation Location basophils as percent of blood leukocytes 1.0 % [facility] Normal eosinophils as percent of blood leukocytes 3.2 % [facility] Normal monocyte count, blood 6.8 % [facility] Normal lymphocyte count, blood 30.2 % [facility] Normal neutrophils as percent of blood leukocytes 58.8 % [facility] Normal basophils, absolute, manual 66 cells/mcL [facility] 0-200 Normal eosinophils, absolute, manual 211 cells/mcL [facility] 15-500 Normal monocytes, absolute, manual 449 cells/mcL [facility] 200-950 Normal lymphocytes, absolute 1993 CELLS/UL [facility] [id number] Normal Absolute Neutrophil count 3881 cells/mcL [facility] 7889-2717 Normal platelet count 217 THOUSAND/UL [facility] 140-400 Normal red blood cell distribution width 13.8 % [facility] 11.0-15.0 Normal mean corpuscular hemoglobin concentration, RBC 33.0 G/DL [facility] 32.0-36.0 Normal mean corpuscular hemoglobin, RBC 31.0 pg [facility] 27.0-33.0 Normal mean corpuscular volume, RBC 93.7 fL [facility] 80.0-100.0 Normal hematocrit, blood 48.0 % [facility] 38.5-50.0 Normal hemoglobin electrophoresis, blood 15.9 [facility] 13.2-17.1 Normal erythrocyte (RBC) count 5.12 MILLION/UL [facility] 4.20-5.80 Normal leukocyte (white blood cells) count, blood 6.6 THOUSAND/UL [facility] 3.8-10.8 Normal calcium, serum 9.5 mg/dL [facility] 8.6-10.3 Normal carbon dioxide, venous blood 23 mmol/L [facility] 19-30 Normal chloride, serum 104 mmol/L [facility] 98-110 Normal potassium, serum 4.4 mmol/L [facility] 3.5-5.3 Normal sodium, serum 138 mmol/L [facility] 135-146 Normal urea nitrogen/creatin ine ratio, serum NOT APPLICABLE (calc) [facility] 6- Estimated Glomerular Filtration Rate (calc) 131 mL/min/{1.73_m 2} [facility] > OR = 60 Normal creatinine, serum 0.85 mg/dL [facility] 0.60-1.35 Normal urea nitrogen, blood 15 mg/dL [facility] 7-25 Normal blood glucose, random 100 mg/dL [facility] 65-99 High cholesterol/HDL ratio, serum, percent 3.9 (calc) [facility] < OR = 5.0 Normal LDL cholesterol, serum 116 MG/DL (CALC) [facility] <130 Normal triglyceride, serum, fasting 98 mg/dL [facility] <150 Normal HDL cholesterol, serum 47 mg/dL [facility] > OR = 40 Normal cholesterol, serum 183 mg/dL [facility] 125-200 Normal HISTORY OF MEDICATION USE Medication Status Instructions Dates Provider Indications Com ments NORCO TABS active take as needed Jennifer Knott SOCIAL HISTORY Date Observation Value Provider smoking status current Tobi dennison alcohol use, average drinks per day 0 /d Jennifer Knott drug use none Jennifer grissomer passive cigarette sm lory exposure yes Jennifer Knott smoking/tobacco cess ation, patient education and counseling yes Shahnaz Mancia MD smoking history, tot al pack/day 1.5 Jennifer Knott smoking history, tot al pack/year 14 Jennifer Nikos cigarette use yes Jennifer Rodriguez elder smoking, date started 1998 Jennifer Dorysanuja smoking status current every day smoker Jamar Junior RN social history reviewed E&M reviewed Rene Junior RN FUNCTIONAL STATUS Date Observation Value Provider periodic limb movement index absent (0) Tobi Morilloacojuma MENTAL STATUS Date Observation Value Provider assessment of judgme nt and insight E&M Alert and oriented to time, place and person. Mood and affect are normal. Rene Junior RN INSURANCE PROVIDERS Payer name Policy type / Coverage type Conde red constitution party ID [facility] [id number] TREATMENT PLAN Date Name STR - Routine BASIC METABOLIC PANE L W/EGFR LIPID PANEL CBC (H/H, RBC, INDIC ES, WBC, PLT) Complete Echo HISTORY OF PROCEDURES Procedure Date Procedure Name Provider Procedure Notes S tatus EKG Shahnaz Mancia MD complet ed
--- OUTSIDE RECORDS SUMMARY | 2024-03-14 20:28 | XMS_ITS | Clinical Summary ---
Author Organization [facility] Address [address] [facility] Attn: Epic Prelude ADT [place] [id number] Care Team Providers Care Lang Path Therapist Name Role Phone Unavailable Primary Care Provider Unavailabl e Allergies No known active allergies Medications Medication Sig Dispensed Refills Start Date End Date Status aspirin (ECOTRIN EC) 81 mg Tablet, Delayed Release (E.C.) Take 81 mg by mouth daily. Active atorvastatin (LIPITOR) 20 mg tablet Take 20 mg by mouth late in the day. Active celecoxib (CeleBREX) 200 mg capsule Take 200 mg by mouth 2 times daily. Active DULoxetine (CYMBALTA) 60 mg Capsule, Delayed Release(E.C.) Take 60 mg by mouth daily. Active hydroCHLOROthiazide 25 mg tablet Take 25 mg by mouth daily. Active lisinopril (PRINIVIL) 40 mg tablet Take 40 mg by mouth daily. Active metFORMIN (GLUCOPHAGE) 1,000 mg tablet Take 1,000 mg by mouth 2 times daily with meals. Active methIMAzole (TAPAZOLE, NORTHYX) 5 mg tablet Take by mouth. Active albuterol HFA 90 mcg inhaler Take 2 Puffs by inhalation every 6 hours as needed for Shortness of Breath. 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 01/07/2018 Cigarette smoker 01/07/2018 Morbid obesity 01/07/2018 BMI 40.0-44.9, adult 01/07/2018 Immunizations Name Administration Dates Next Due Influenza Seasonal Unspecified Formulation IM Social History Tobacco Use Types Packs/Day Years Used Date Smoking Tobacco: Never Assessed Sex and Gender Information Value Date Recorded Sex Assigned at Not on file Gender Identity Not on file Sexual Orientation Not on file Last Filed Vital Signs Vital Sign Reading Time Taken Comments Blood Pressure 116/80 01/07/2018 1:17 PM CDT Pulse - - Temperature - - Respiratory Rate - - Oxygen Saturation - - Inhaled Oxygen Concentration - - Weight 134.3 kg (296 lb) 01/07/2018 1:17 PM CDT Height 175.3 cm (5' 9 ) 01/07/2018 1:17 PM CDT Body Mass Index 43.71 01/07/2018 1:17 PM CDT Plan of Treatment Health Maintenance Due Date Last Done Comments PNEUMOCOCCAL VACCINE 0-64 YEARS (1 of 2 - PCV) 983 DIABETES ANNUAL FOOT EXAM 1994 DIABETES ANNUAL RETINAL EXAM 1994 DIABETES HBA1C Q 6 MONTHS 1994 DIABETES MICROALBUMIN ANNUAL SCREEN 1994 LDL CHOLESTEROL ANNUAL 1994 DTAP/TDAP/TD VACCINES (1 - Tdap) 06/25/1995 HEPATITIS B VACCINES (1 of 3 - 19+ 3-dose series) 05/28 COLORECTAL SCREENING 2021 Colorectal Cancer Screening 2021 FIT-DNA Q 3 years 2021 FIT/FOBT Q 1 year 2021 Flex Sig/CT Colonography Q 5 years 2021 INFLUENZA VACCINE (#1) 2023 12/23/2017
--- OUTSIDE RECORDS SUMMARY | 2024-03-14 20:28 | XMS_ITS | Encounter Summary ---
Author Organization [facility] Address 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; Cigarette smoker; Morbid obesity; BMI 40.0-44.9, adult Social History Tobacco Use Types Packs/Day Years Used Date Smoking Tobacco: Never Assessed Sex and Gender Information Value Date Recorded Sex Assigned at Not on file Gender Identity Not on file Sexual Orientation Not on file documented as of this encounter Last Filed Vital Signs Vital Sign Reading Time Taken Comments Blood Pressure 116/80 01/07/2018 1:17 PM CDT Pulse - - Temperature - - Respiratory Rate - - Oxygen Saturation - - Inhaled Oxygen Concentration - - Weight 134.3 kg (296 lb) 01/07/2018 1:17 PM CDT Height 175.3 cm (5' 9 ) 01/07/2018 1:17 PM CDT Body Mass Index 43.71 01/07/2018 1:17 PM CDT documented in this encounter Plan of Treatment Not on file documented as of this encounter Visit Diagnoses Diagnosis Essential hypertension Unspecified essential hypertension Hyperthyroidism Thyrotoxicosis without mention of goiter or other cause, without mention of thyrotoxic crisis or storm Controlled type 2 diabetes mellitus without complication, without long-term current use of insulin Recurrent major depression in partial remission Major depressive disorder, recurrent episode, in partial or unspecified remission Obstructive sleep apnea (adult) (pediatric) 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
--- OUTSIDE RECORDS SUMMARY | 2024-03-14 20:28 | XMS_ITS ---
Author Organization Unknown Address [address] [place] [address] [phone] Phone Care Team Providers Care Direct Mail Clerk Name Role Phone DOMINIQUE MCGEE KHADRA Attending Unavailable NOT ON [facility] STAFF Primary Unavailable Results CBC w/AUTOMATED DIFF - Colle ct Date/Time: 01/03/2021 18:05 [facility] ID: [id number] [address] [place], [place], [phone] LOINC: 20776-7 Test Value Unit Reference Range Code Code System Flag WBC 13.5 th/ul L=4.0 H=10.5 6690-2 LOINC H RBC 4.87 mil/ul L=4.50 H=6.00 789-8 LOINC HGB 15.5 g/dl L=13.5 H=18.0 718-7 LOINC HCT 43.4 % L=41.0 H=52.0 4544-3 LOINC MCV 89 fL L=78 H=100 787-2 LOINC MCH 31.8 pg L=27.0 H=32.0 785-6 LOINC MCHC 35.7 g/dl L=32.0 H=36.0 786-4 LOINC RDW 13.0 % L=11.0 H=14.0 788-0 LOINC PLATELET 220 th/ul L=150 H=450 777-3 LOINC %NEUT 76.7 % L=50.0 H=70.0 770-8 LOINC H %LYMPH 14.3 % L=20.0 H=40.0 736-9 LOINC L %MONO 6.2 % L=0.0 H=10.0 5905-5 LOINC %EOS 1.8 % L=0.0 H=3.0 713-8 LOINC %BASO 0.7 % L=0.0 H=2.0 706-2 LOINC %IG 0.3 % L=0.0 H=2.0 #NEUT 10.4 th/ul 751-8 LOINC #LYMPHS 1.9 th/ul 731-0 LOINC #MONOS 0.8 th/ul 742-7 LOINC #EOS 0.2 th/ul 711-2 LOINC #BASO 0.1 th/ul 704-7 LOINC #IG 0.0 th/uL 54106-0 LOINC NRBC 0 /100 WBC L=0 H=0 MANUAL DIFF NOT INDICATED 75394-6 LOINC CH 12 (COMP METAB PROFILE) - Collect Date/Time: 01/03/2021 17:55 [facility] ID: [id number] [address] [place] [address], [id number] LOINC: 56174-5 Test Value Unit Reference Range Code Code System Flag SODIUM 136 mmol/L L=136 H=145 2951-2 LOINC POTASSIUM 3.8 mmol/L L=3.5 H=5.0 2823-3 LOINC CHLORIDE 102 mmol/L L=98 H=107 2075-0 LOINC CO2 22.7 mmol/L L=22.0 H=29.0 1962-0 LOINC BUN 15 mg/dl L=6 H=21 3094-0 LOINC CREATININE 0.7 mg/dl L=0.7 H=1.2 2160-0 LOINC GLUCOSE 97 mg/dl L=74 H=109 2345-7 LOINC CALCIUM 9.0 mg/dl L=8.6 H=10.5 20175-4 LOINC SGOT(AST) 22 U/L L=5 H=40 1920-8 LOINC SGPT(ALT) 24 U/L L=5 H=41 1744-2 LOINC ALKALINE PHOS 85 U/L L=40 H=129 6768-6 LOINC BILIRUBIN T 0.53 mg/dl L=0.00 H=1.20 1975-2 LOINC TOTAL PROTEIN 7.8 g/dL L=6.1 H=8.1 2885-2 LOINC ALBUMIN 4.6 g/dl L=3.5 H=5.2 1751-7 LOINC GLOBULIN 3.2 g/dl L=2.3 H=3.5 57452-8 LOINC A/G RATIO 1.4 % L=1.0 H=1.8 1759-0 LOINC AGE 45 yrs 28077-2 LOINC GFR-AA 158 L=60 H=999 75958-2 LOINC GFR-NON AA 130 L=60 H=999 68218-1 LOINC TROPONIN T - Collect Date/Ti me: 01/03/2021 17:55 [facility] ID: [id number] [address] [place] [address], [id number] LOINC: 6598-7 Test Value Unit Reference Range Code Code System Flag TROPONIN T < 0.010 ng/mL L=0.000 H=0.010 6598-7 LOINC D-DIMER (VIDAS) - Collect Da te/Time: 01/03/2021 17:55 [facility] ID: [id number] [address] [place] [address], [id number] LOINC: 54270-2 Test Value Unit Reference Range Code Code System Flag D-Dimer 352 ng FEU/mL L=0 H=500 CK (CPK) - Collect Date/Time : 01/03/2021 17:55 [facility] ID: [id number] [address] [place] [address], [id number] LOINC: 2157-6 Test Value Unit Reference Range Code Code System Flag CK 116 U/L L=20 H=200 2157-6 LOINC CKMB - Collect Date/Time: 17:55 [facility] ID: [id number] [address] [place] [address], [id number] LOINC: 72612-9 Test Value Unit Reference Range Code Code System Flag CKMB 2 ng/ml L=0 H=8 98069-5 LOINC CK-CPK 116 U/L L=20 H=200 2157-6 LOINC MB% 1.7 % L=0.0 H=6.0 63096-1 LOINC BNP (NT pro-BNP) - Collect D ate/Time: 01/03/2021 17:55 [facility] ID: [id number] [address] [place] [address], [id number] LOINC: 47611-4 Test Value Unit Reference Range Code Code System Flag NT proBNP 45 pg/ml L=0 H=125 59863-2 LOINC CHEST SINGLE VIEW FRONTAL - Completed: 01/03/2021 18:25 LOINC: \TM00\12FI\LM03\RM80\SLICK o\BM09\ \MRHo\ [address] [address] ---------NAME--------- NUMBER SEX AGE ADMIT DISC. XRAY# F/C TYPE KADY PICHARDO [id number] M 45 01/03/21 BB4 O/P DATE OF : 1975 M/R# [id number] PH#: [phone] RM \MRHx\ LOCATION: TRANSCRIBED: 01/03/21 18:21 CHEST SINGLE VIEW FRONTAL [id number] COMPLETED:01/03/21 18:25 alonso [id number] REASON FOR XRAY: CHEST PAIN PHYSICIAN: DOMINIQUE FARRAR NOT ON [facility] RADIOLOGY REPORT ORDER DATE and TIME: 01/03/2021 1753 [id number] CHEST SINGLE VIEW FRONTAL DATE OF SERVICE: 01/03/21 17:53 PATIENT EXAM: Portable chest HISTORY: Left-sided pain COMPARISON: None. FINDINGS: The cardiomediastinal silhouette is normal. There is no consolidation or effusion. There are no acute osseous abnormalities. IMPRESSION: No evidence of active pulmonary disease. INTERPRETING RADIOLOGIST: Keaton Duarte M.D. ELECTRONICALLY SIGNED BY: Keaton Duarte M.D. Mine Development Engineer Initials: TS Mine Development Engineer Time: 18:21 Mine Development Engineer Date: 01/03/21 Signed Date/Time: 01/03/21 18:21 UNSIGNED TRANSCRIPTIONS ARE PRELIMINARY REPORTS AND DO NOT REPRESENT MEDICAL OR LEGAL DOCUMENTS. Social History Type Status Start Date End Date Code Code Syst em Sex Male Hospital Discharge Instructions Should you have any questions prior to discharge, please contact a member of your healthcare team. If you have left the hospital and have any questions, please contact your primary care physician. Reason For Referral No Data Found Plan of Treatment No Data Found Encounters Encounter Diagnosis Start Date Code Code Sys tem Chest pain 01/03/2021 [id number] SNOMED-CT Personal Care Team Section Performer Name Performer Role Active Date Inactive Da danette
== END 2024-03-11 06:55 | disposition home or self-care (01) ==
LOC: ANHLAB 06:55
PROVIDERS: PCP Internal Medicine; Visit Provider Nurse Practitioner
DX: R73.03 Prediabetes (principal); Z13.220 Encounter for screening for lipoid disorders; Z13.228 Encounter for screening for other metabolic disorders
CPT/HCPCS: 36415; 80053; 80061; 83036; 85025

== ENCOUNTER 2024-04-28 11:33 | Emergency (ER) | payer BC, SELFPAY ==
[2024-04-28 11:55] VITALS: BP 135/95; PULSE 88; RESP 18; TEMP 37.3; O2SAT 99
[2024-04-28 12:25] LABS: EDCOVIDSCREEN Negative (Negative); EDINFLUASCREEN Negative (Negative); EDINFLUBSCREEN Negative (Negative)
--- NOTE | 2024-04-28 12:35 | ED.URI ---
HPI - URI/Sore Throat General Chief Complaint: Upper Respiratory Infection Stated Complaint: Bodyaches/Fever Time Seen by Provider: 04/28/24 12:35 Source: patient and RN notes reviewed Mode of arrival: ambulatory Limitations: no limitations History of Present Illness HPI Narrative: 48-year-old male presents with concern for 1 day history of sore throat, postnasal drainage, feeling feverish, body aches, headache and nausea. He has not taken any [id number] medications for his symptoms MD elicited complaint: fever and cough Related Data Allergies Allergy/AdvReac Type Severity Reaction Status Date / Time ibuprofen AdvReac Severe Unknown Verified 04/28/24 11:36 Review of Systems Review of Systems: CONSTITUTIONAL: Reports malaise, chills, sweats EYES: Denies visual changes, redness, or discharge. ENT: Reports rhinorrhea, congestion,and sore throat. CARDIOVASCULAR: Denies chest pain, palpitations, or edema. RESPIRATORY: Denies cough. Denies dyspnea. GASTROINTESTINAL: Denies abdominal pain, diarrhea. Reports nausea with 1 episode of vomiting SKIN: Denies rash or itching. MUSCULOSKELETAL: Reports myalgia. NEUROLOGIC: Reports headache. All systems reviewed & are unremarkable except as noted in HPI and below PMFSH Past Medical History Medical History Back Pain Cellulitis of lower leg Left Chest discomfort Chest pain Cholecystectomy planned 2018 Contact dermatitis COVID-19 Encounter for smoking cessation counseling Hematuria Hospital discharge follow-up Kidney stone LLQ abdominal pain Lumbar back pain LUQ abdominal pain Mild acid reflux Recurrent tinea pedis Rib pain on left side Right bundle branch block Screening for lipoid disorders Screening for metabolic disorder Shortness of Breath Smoker Surgical History Surgical History History of cholecystectomy Family History Family History Father Family history of thyroid disease Diabetes mellitus Hypertension Family history of hypothyroidism Mother Hypertension Other Cerebrovascular accident Family history of arthritis Family history of kidney disease Social History Social History 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 -WEEKENDS Smoking packs per day: 1 Smoking cigarettes per day: 20.0 Years smoked: 24 Smoking pack-years: 24.00 Smoking status: Former smoker Tobacco type: cigarettes Alcohol intake: never Substance use type: does not use Lack of Transportation: No Lack of Food: Never True Current Housing: I Have Housing Concerned About Future Housing: No Difficulty Paying Gas/Electric Bills: No Difficulty Paying for Meds: No Currently Unemployed: No Education: High School Diploma/GED Difficulty w/ Childcare or Family Care: No Living arrangements: with family Gender identity (if verbalized by the patient): Male Spiritual care concerns: No Comments At time of signature, agree with nursing past medical, surgical, social and family history. There is no relevant family history pertinent to the presenting complaint Exam Narrative: GENERAL: Nontoxic-appearing, well-nourished, and in no acute distress. HEAD: Normocephalic EYES: PERRLA, conjunctivae clear ENT: Nares clear. Mucous membranes moist. TM pearly bartlett with dull light reflex bilaterally; no tragal tenderness. Oropharynx not erythematous without lesions. Tonsils not enlarged and without exudate, no drooling, no hoarseness, no trismus, uvula midline. NECK: Supple. No lymphadenopathy CHEST: Clear to auscultation, breath sounds equal. No wheezing, rhonchi, rales, or stridor. No respiratory distress, speaks in full sentences. HEART: Regular rate and rhythm. No murmur heard. SKIN: Warm, dry, no rash. NEURO: Alert and oriented x3. PSYCH: Normal mood and affect Course Course Emergency Course: Patient is aware of diagnosis, understands and agrees to treatment plan. Anticipatory guidance given. Patient agrees to follow-up as directed and is aware of reasons to seek care at the emergency department. Portions of this record may have been created with voice recognition software Level of Care: Express Care Visit Vital Signs Vital signs: Vital Signs Temperature 99.2 F 04/28/24 11:55 Pulse Rate 88 04/28/24 11:55 Respiratory Rate 18 04/28/24 11:55 Blood Pressure 135/95 H 04/28/24 11:55 Pulse Oximetry 99 04/28/24 11:55 Oxygen Delivery Room Air 04/28/24 11:55 Temperature 99.2 F 04/28/24 11:55 Pulse Rate 88 04/28/24 11:55 Respiratory Rate 18 04/28/24 11:55 Blood Pressure 135/95 H 04/28/24 11:55 Pulse Oximetry 99 04/28/24 11:55 Oxygen Delivery Room Air 04/28/24 11:55 Reviewed. MDM - URI/Sore Throat MDM Narrative Medical decision making narrative: Differential diagnosis considered: Wahl virus, strep pharyngitis, allergic rhinitis, upper respiratory tract infection, sinusitis, rhinosinusitis, nasopharyngitis. viral pharyngitis, otitis media, otitis externa, pneumonia, bronchitis, viral cough syndrome, viral syndrome, and influenza. Exam findings show no acute concerns or changes; patient is non-toxic appearing and is in no distress. Patient is appropriate for outpatient treatment and follow-up. Lab Data Attestation: I reviewed the patient's lab results. Labs: Lab Results 04/28/24 Range/Units 11:55 POC Influenza A Ag Negative (Negative) POC Influenza B Ag Negative (Negative) POC SARS CoV-2 Ag Negative (Negative) Critical Care Time Critical Care Time Critical Care Time: No Discharge Plan Discharge Clinical Impression: Influenza-like illness Patient Disposition: Home, Self-Care Condition: Stable Instructions: Viral Syndrome (ED) Additional Instructions: -Take strict precautions to prevent the spread of your virus. Be diligent about covering your cough (even when you are alone) and washing your hands frequently. -You may contagious until you have been symptom and/or fever free for 24 hours without fever reducing medicine -Take Tylenol for pain and fever relief (per package directions) -Drink plenty of fluid - drink fluid with electrolytes such as Gatorade or other oral re-hydration solution. Avoid caffeine, which can make dehydration worse. -Get plenty of rest to help your body heal. -Use a cool mist humidifier for chest and nasal congestion. -Eat RAW honey or use cough drops to ease throat discomfort -Do not smoke or expose children to secondhand smoke -Wash your hands frequently. -Please follow-up with your primary care doctor in the next 1-2 days if your symptoms do not improve. -If you have any worsening of symptoms or any other concerns please go to the ED immediately. -Please take medications as prescribed and continue taking your home medications as usual. Patient Language: Vincentian Prescriptions: No Action phentermine 37.5 mg tablet 37.5 mg PO DAILY Qty: 90 0RF Rx Instructions: must administer 30 minutes before or 1-2 hours after breakfast sertraline 25 mg tablet 25 mg PO DAILY Qty: 90 1RF famotidine 20 mg tablet 20 mg PO BID Qty: 180 1RF Follow-up/Referrals: Jeyson Humphrey DO [Primary Care Provider] - Stand Alone Forms: Work/School Release IP Time of Disposition: 13:02
[2024-04-28 13:01] LABS: EDSTREPNEGPOS1 Negative (Negative)
== END 2024-04-28 13:05 | disposition home or self-care (01) ==
PROVIDERS: Emergency Provider Nurse Practitioner; PCP Internal Medicine
DX: J11.1 Influenza due to unidentified influenza virus with other respiratory manifestations (principal); Z20.822 Contact with and (suspected) exposure to COVID-19; K21.9 Gastro-esophageal reflux disease without esophagitis; Z87.891 Personal history of nicotine dependence; Z86.16 Personal history of COVID-19
CPT/HCPCS: 87081; 87426; 87804; 87880; 99213; G0463

== ENCOUNTER 2024-06-12 14:56 | Emergency (ER) | payer BC, SELFPAY ==
--- NOTE | ~2024-06-12 | XR_ITS ---
Exam: Abdomen 1V HISTORY: LLQ abdominal pain, denies other symptoms COMPARISON: None. TECHNIQUE: Supine images of the abdomen FINDINGS: Bowel gas pattern is non-obstructive. There is no free air or deep sulci. No pathologic calcifications are seen. Lung bases are poorly visualized. Bones and soft tissues are unremarkable. Clips within the right upper quadrant consistent with prior cholecystectomy. IMPRESSION: Nonspecific, nonobstructive bowel gas pattern. Unremarkable plain film evaluation of the abdomen and pelvis, as detailed above. Reviewed, dictated and finalized at location A. IMPRESSION: Nonspecific, nonobstructive bowel gas pattern. Unremarkable plain film evaluation of the abdomen and pelvis, as detailed above .
--- NOTE | 2024-06-12 14:57 | ED_ITS ---
HPI - Abdominal Pain General Chief Complaint: Abdominal Pain Stated Complaint: lower left side abdominal pain Time Seen by Provider: 06/12/24 14:56 Source: patient Mode of arrival: ambulatory Limitations: no limitations History of Present Illness HPI narrative: Patient is a 48-year-old male who presents with left lower abdominal pain for 2 days. The day prior to pain starting he was lifting heavy type in a repetitive twisting motion. Patient is also on a high-protein diet and has had small hard bowel movements. Denies any urinary symptoms, fever, chills, nausea, vomiting, diarrhea. Related Data Allergies Allergy/AdvReac Type Severity Reaction Status Date / Time ibuprofen AdvReac Severe Unknown Verified 06/05/24 14:28 Review of Systems 2 Review of Systems: All systems reviewed & are unremarkable except as noted in HPI and below Constitutional: Constitutional: Denies body ache(s), Denies chills, Denies fatigue, Denies fever(s), Denies headache(s), Denies malaise and Denies weakness Eyes: Eyes: Denies blurry vision, Denies irritation and Denies loss of vision ENT: Denies otalgia, Denies headache(s), Denies nasal discharge, Denies sinus pain and Denies sore throat Cardiovascular: Cardiovascular: Denies chest pain, Denies irregular heart rhythm and Denies dyspnea Respiratory: Respiratory: Denies dyspnea Gastrointestinal: Gastrointestinal: Reports abdominal pain, Denies melena, Denies hematochezia, Denies diarrhea, Denies nausea and Denies vomiting Musculoskeletal: Musculoskeletal: Denies back pain, Denies myalgias and Denies arthralgias Integumentary/Breasts: Skin/Breast: Denies pruritus and Denies rash Neurologic: Denies headache(s), Denies loss of vision and Denies weakness Psychiatric: Psychiatric: Reports no additional psychiatric complaints Endocrine: Endocrine: Denies fatigue PMFSH Past Medical History Medical History COVID-19 Chest discomfort Encounter for smoking cessation counseling Chest pain Right bundle branch block Shortness of Breath Rib pain on left side LUQ abdominal pain Lumbar back pain Back Pain LLQ abdominal pain Screening for metabolic disorder Contact dermatitis Kidney stone Hospital discharge follow-up Screening for lipoid disorders Hematuria Cholecystectomy planned 2017 Mild acid reflux Cellulitis of lower leg Left Smoker Recurrent tinea pedis Surgical History Surgical History History of cholecystectomy Family History Family History Father Family history of thyroid disease Diabetes mellitus Hypertension Family history of hypothyroidism Mother Hypertension Other Cerebrovascular accident Family history of arthritis Family history of kidney disease Social History Social History 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 -WEEKENDS Smoking packs per day: 1 Smoking cigarettes per day: 20.0 Years smoked: 24 Smoking pack-years: 24.00 Smoking status: Former smoker Tobacco type: cigarettes Alcohol intake: never Substance use type: does not use Lack of Transportation: No Lack of Food: Never True Current Housing: I Have Housing Concerned About Future Housing: No Difficulty Paying Gas/Electric Bills: No Difficulty Paying for Meds: No Currently Unemployed: No Education: High School Diploma/GED Difficulty w/ Childcare or Family Care: No Living arrangements: with family Gender identity (if verbalized by the patient): Male Spiritual care concerns: No Comments At time of signature, agree with nursing past medical, surgical, social and family history. There is no relevant family history pertinent to the presenting complaint. Exam 2 Const: General: cooperative, healthy appearing, comfortable, no acute distress and well nourished Nutritional Appearance: well nourished O rientation/consciousness: patient oriented x3 Limitations: no limitations HENMT: Head: normal to inspection, normocephalic and atraumatic Ears: h earing grossly normal bilaterally and external ears normal Face/Nose/Sinus: N ormal external nose present, normal facial exam and face symmetric Face and sinus: normal facial exam and face symmetric Mouth: Yes lip normal Eyes: General: appearance normal, both eyes and all related structures A lignment and Position: alignment normal and position normal Periorbital: p eriorbital findings normal Eyelids: eyelids normal Pupils: Equal, round and reactive pupils present EOM: EOMs intact bilaterally Neck: Neck: normal visual inspection, full ROM and supple Chest: Chest palpation & inspection: normal inspection of the chest Resp: Effort & Inspection: normal respiratory effort and able to speak in complete sentences Auscultation: clear to auscultation bilaterally Cardio: Rate: regular rate Rhythm: regular rhythm Heart sounds: S1 normal heart sound present and S2 normal heart sound present GI: Inspection: normal to inspection GI Palp: Yes abdominal tenderness, Yes Soft to palpation and No Guarding due to palpation present (GI) Auscultation: normal bowel sounds Abdomen image: 1. Minor abdominal tenderness with moderate palpation Skin: General skin exam: normal color and no rashes or lesions noted Neuro: General: patient oriented x3 and moves all extremities Cranial nerves: Yes Equal, round and reactive pupils present Speech: normal speech Gait exam (Neuro): Normal gait present Extrem: General: normal to inspection, full ROM and no edema Psych: Appearance: grossly normal and well kempt Mental Status: mental status grossly normal Speech and movement: Normal speech and movement present Affect: normal affect Attitude: cooperative Thought process: Normal thought process present Course Course Emergency Course: Patient is aware of diagnosis, understands and agrees to treatment plan. Anticipatory guidance given. Patient agrees to follow-up as directed and is aware of reasons to seek care at the emergency department. Portions of this record may have been created with voice recognition software Level of Care: Express Care Visit Vital Signs Vital signs: Reviewed MDM - Abdominal Pain MDM Narrative Medical decision making narrative: Discussed red flag symptoms with patient including worsening pain, fevers, chills, nausea vomiting, dark tarry stools. Patient states he will go to emergency department if he has any worsening symptoms. Discussed interactions of phentermine with medications being prescribed. Patient states he will stop taking phentermine for the next few days. Pt well hydrated appearing, in no respiratory distress, hemodynamically stable. Recommend supportive care. The patient is stable at time of discharge the clinical impression was discussed and the patient was given the opportunity to ask questions, which were addressed as completely as possible given the information available at present. Anticipatory guidance and return to care precautions were discussed and the importance of primary care follow-up was stressed and encouraged. The patient voiced understanding of the plan, indications to return, and the need for follow-up. Exam findings show no acute concerns or changes Patient is appropriate for outpatient treatment and follow-up. Differential Diagnosis Differential diagnosis: Likely abdominal pain, constipation, gastroenteritis, small bowel obstruction and other (Muscle strain) Medical Records Attestation: I reviewed the patient's medical records. Imaging Data Radiologist's impression: Exam: Abdomen 1V HISTORY: LLQ abdominal pain, denies other symptoms COMPARISON: None. TECHNIQUE: Supine images of the abdomen FINDINGS: Bowel gas pattern is non-obstructive. There is no free air or deep sulci. No pathologic calcifications are seen. Lung bases are poorly visualized. Bones and soft tissues are unremarkable. Clips within the right upper quadrant consistent with prior cholecystectomy. IMPRESSION: Nonspecific, nonobstructive bowel gas pattern. Unremarkable plain film evaluation of the abdomen and pelvis, as detailed above. Discharge Plan Discharge Clinical Impression: Abdominal muscle strain Qualifiers: Encounter type: initial encounter Qualified Code(s): S39.011A - Strain of muscle, fascia and tendon of abdomen, initial encounter Patient Disposition: Home, Self-Care Condition: Stable Instructions: Muscle Strain (ED) Additional Instructions: Avoid activities that cause pain until the pain subsides. Ice to the area 20-30 minutes 4-6 times a day Use lidocaine patches as needed. 12 hours on 12 hours off. Tylenol for lesser pain Take steroids per package instructions. Do not take phentermine with baclofen. Follow up with your primary care provider if the condition is not improving within 1 week. If the condition worsens with numbness, tingling, decrease sensation with weakness seek treatment in the emergency room immediately. Patient Language: Romansh Prescriptions: New baclofen 10 mg tablet 10 mg PO TID 5 Days Qty: 15 0RF methylprednisolone [Medrol (Francois)] 4 mg tablets,dose pack See Rx Instructions .ROUTE .COMPLEX Qty: 21 0RF Rx Instructions: orally per package directions lidocaine 5 % adhesive patch,medicated 1 patch topical DAILY Qty: 15 0RF Rx Instructions: leave on most painful area for up to 12 hrs No Action phentermine 37.5 mg tablet 37.5 mg PO DAILY Qty: 90 0RF Rx Instructions: must administer 30 minutes before or 1-2 hours after breakfast sertraline 25 mg tablet 25 mg PO DAILY Qty: 90 1RF famotidine 20 mg tablet 20 mg PO BID Qty: 180 1RF Follow-up/Referrals: Jeyson Humphrey DO [Primary Care Provider] - 3 Days Stand Alone Forms: Work/School Release IP Time of Disposition: 16:06
[2024-06-12 15:05] VITALS: BP 125/83; PULSE 81; RESP 16; TEMP 36.5; O2SAT 100
== END 2024-06-12 16:17 | disposition home or self-care (01) ==
PROVIDERS: Emergency Provider Nurse Practitioner Family; PCP Internal Medicine
DX: S39.011A Strain of muscle, fascia and tendon of abdomen, initial encounter (principal); X50.3XXA Overexertion from repetitive movements, initial encounter; Z87.891 Personal history of nicotine dependence; K21.9 Gastro-esophageal reflux disease without esophagitis; Z86.16 Personal history of COVID-19
CPT/HCPCS: 74018; 99213; G0463

== ENCOUNTER 2024-07-11 13:31 | Emergency (ER) | payer OTHER, BC, SELFPAY ==
--- NOTE | ~2024-07-11 | XR_ITS ---
XR clavicle LT 07/11/2024 13:57 INDICATION: Left clavicle pain PROCEDURE: 2 views left clavicle COMPARISON: 10/14/2023 FINDINGS: Fracture, dislocation or subluxation is not identified. The soft tissues appear within norm al limits. No foreign bodies are identified. IMPRESSION: 1: NO ACUTE BONE OR JOINT ABNORMALITY IDENTIFIED. Reviewed, dictated and finalized at location B.
[2024-07-11 13:41] VITALS: BP 126/89; PULSE 72; RESP 16; TEMP 36.6; O2SAT 100
--- NOTE | 2024-07-11 13:41 | ED_ITS ---
HPI - Extremity Injury (Upper) General Chief Complaint: Extremity Injury, Upper Stated Complaint: L SHOULDER INJURY Time Seen by Provider: 07/11/24 13:45 Source: patient Mode of arrival: ambulatory Limitations: no limitations History of Present Illness HPI narrative: Kings is a 49-year-old male patient presenting to the clinic today with complaints of a left clavicle injury/pain. He reports he was lifting some copper pipe this morning while he was at work and place some on his right shoulder and when he was lifting up he felt a pop to the medial left clavicle area. States that there is pain when he raises his arm above his head and does not have full range of motion of the left shoulder due to pain no obvious bruising or swelling noted. Denies any neck pain. Denies any chest pain or shortness of breath. Related Data Allergies Allergy/AdvReac Type Severity Reaction Status Date / Time ibuprofen AdvReac Severe Unknown Verified 07/11/24 13:49 Review of Systems Review of Systems: Pertinent positives per HPI. Patient denies any fever, chills, rash, headache, visual changes, dizziness, cough, runny nose, sore throat, shortness of breath, chest pain, palpitations, nausea, vomiting, diarrhea, constipation, abdominal pain, or any urinary issues. [facility] Past Medical History Medical History COVID-19 Chest discomfort Encounter for smoking cessation counseling Chest pain Right bundle branch block Shortness of Breath Rib pain on left side LUQ abdominal pain Lumbar back pain Back Pain LLQ abdominal pain Screening for metabolic disorder Contact dermatitis [facility] discharge follow-up Screening for lipoid disorders Hematuria Cholecystectomy planned 2017 Mild acid reflux Cellulitis of lower leg Left Smoker Recurrent tinea pedis Surgical History Surgical History History of cholecystectomy Family History Family History Father Family history of thyroid disease Diabetes mellitus Hypertension Family history of hypothyroidism Mother Hypertension Other Cerebrovascular accident Family history of arthritis Family history of kidney disease Social History Social History 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 -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 Smoking packs per day: 1 Smoking cigarettes per day: 20.0 Years smoked: 24 Smoking pack-years: 24.00 Smoking status: Former smoker Tobacco type: cigarettes Alcohol intake: never Substance use type: does not use Lack of Transportation: No Lack of Food: Never True Current Housing: I Have Housing Concerned About Future Housing: No Difficulty Paying Gas/Electric Bills: No Difficulty Paying for Meds: No Currently Unemployed: No Education: High School Diploma/GED Difficulty w/ Childcare or Family Care: No Living arrangements: with family Gender identity (if verbalized by the patient): Male Spiritual care concerns: No Comments At the time of my signature, I reviewed and agree with the nursing past medical, surgical, social, and family history. There is no relevant family history pertinent to the patient complaint. Exam Narrative: General: Well-developed, well nourished, in no apparent distress Head: Normocephalic, atraumatic. Cardio: Regular rate and rhythm, s1 and s2 normal, no murmur appreciated. Resp: Clear to auscultation bilaterally, no rhonchi, rales, wheezing or rubs. Musculoskeletal: No deformity,tender to palpation over the medial anterior clavicle, no tenderness to palpation over the cervical spine, limited range of motion of the left shoulder due to pain over the medial clavicle, peripheral pulse strong, muscle strength strong. Hand grasp strong bilaterally, no edema, normal gait and station Course Course Emergency Course: Portions of this record may have been created with voice recognition software. Level of Care: Express Care Visit Vital Signs Vital signs: Vital Signs Temperature 36.6 C 07/11/24 13:41 Pulse Rate 72 07/11/24 13:41 Respiratory Rate 16 07/11/24 13:41 Blood Pressure 126/89 07/11/24 13:41 Pulse Oximetry 100 07/11/24 13:41 Oxygen Delivery Room Air 07/11/24 13:41 Temperature 36.6 C 07/11/24 13:41 Pulse Rate 72 07/11/24 13:41 Respiratory Rate 16 07/11/24 13:41 Blood Pressure 126/89 07/11/24 13:41 Pulse Oximetry 100 07/11/24 13:41 Oxygen Delivery Room Air 07/11/24 13:41 Vital signs reviewed MDM - Extremity Injury (Upper) MDM Narrative Medical decision making narrative: At the time of visit patient is resting comfortably on the exam table. Patient appears to be nontoxic. Diagnostics: X-ray of the left clavicle was performed was negative for any sign of fracture or malalignment. Plan: I suspect patient has a clavicle pain/strain. Will give arm sling. Will have him not use the left arm x3 days. Supportive measures were discussed with the patient and they voiced understanding discharge instructions and agrees to treatment plan. Return precautions reviewed Differential Diagnosis Differential diagnosis: Likely dislocation of shoulder, fracture of clavicle and other (Clavicle sprain, cervical sprain, muscle sprain) Imaging Data Radiologist's impression: ITS Impressions Clavicle X-Ray 07/11/24 14:20 IMPRESSION: 1: NO ACUTE BONE OR JOINT ABNORMALITY IDENTIFIED. Discharge Plan Discharge Clinical Impression: Clavicle pain Patient Disposition: Home Condition: Stable Instructions: Antibiotic Form, How to Use a Sling (ED), Shoulder Sprain (ED) Additional Instructions: X-ray of the left clavicle is negative for any sign of fracture or malalignment. Rest, ice, elevate, and wear arm sling for comfort Tylenol/motrin for pain as discussed. No use of the left arm for 3 days Follow up with your PCP if symptoms persist more than 1 week. Patient Language: Bulgarian Prescriptions: No Action phentermine 37.5 mg tablet 37.5 mg PO DAILY Qty: 90 0RF Rx Instructions: must administer 30 minutes before or 1-2 hours after breakfast sertraline 25 mg tablet 25 mg PO DAILY Qty: 90 1RF famotidine 20 mg tablet 20 mg PO BID Qty: 180 1RF Follow-up/Referrals: Jeyson Humphrey, [Primary Care Provider] - Stand Alone Forms: Work/School Release IP Time of Disposition: 14:36 Quality NIHSS Nursing Documentation ED NIHSS nursing documentation: reviewed/agree
== END 2024-07-11 14:40 | disposition home or self-care (01) ==
PROVIDERS: Emergency Provider Nurse Practitioner Family; PCP Internal Medicine
DX: M25.512 Pain in left shoulder (principal); Z87.891 Personal history of nicotine dependence; K21.9 Gastro-esophageal reflux disease without esophagitis
CPT/HCPCS: 73000; 99213; A4565; G0463

== ENCOUNTER 2024-08-10 08:16 | Emergency (ER) | payer BC, SELFPAY ==
--- NOTE | ~2024-08-10 | XR_ITS ---
XR hip LT 2V w AP pelvis 08/10/2024 08:44 Indication: Left hip pain after injury Procedure: AP pelvis and 2 views left hip Comparison: No prior studies for comparison. Findings: Pelvic rings intact. No fracture, subluxation or dislocation. No soft tissue abnormality. S acral foramen are symmetric. No foreign bodies. Impression: 1: No acute bone or joint abnormality. Reviewed, dictated and finalized at location A. Impression: 1: No acute bone or joint abnormality.
[2024-08-10 08:23] VITALS: BP 135/95; PULSE 90; RESP 18; TEMP 36.4; O2SAT 96
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
== END 2024-08-10 08:41 | disposition other institution (70) ==
LOC: EXPCOLL 08:18
PROVIDERS: Emergency Provider Nurse Practitioner Family; PCP Internal Medicine
DX: M25.552 Pain in left hip (principal); Z87.891 Personal history of nicotine dependence
CPT/HCPCS: 73502; 99213; G0463